=== PATIENT | female | born 1940 | race Caucasian/White ===

== ENCOUNTER 2016-11-07 09:55 | Inpatient (IN) | payer OTHER, BC ==
[~2016-11-07] VITALS: Ht 154.9 cm; Wt 85.7 kg
[~2016-11-07 09:55] MED LIST: ASPEC325 PO; ATR25 PO; BIOTPOW17 PO; CRAN200C PO; DESV50TA PO; FLV400 PO; FRRG PO; IBUP-1105 PO; LISI-461 PO; OMEP40CA PO; SENNTAB13 PO; doxycycline PO
[2016-11-07] MEDS ORDERED: EFFSR75 PO (10:23)
[2016-11-07] MEDS ORDERED: TRIATAB3 PO (10:23)
[2016-11-07] MEDS ORDERED: FLV400 PO (10:24)
[2016-11-07] MEDS ORDERED: OMEP40CA41 PO (10:24)
[2016-11-07] MEDS ORDERED: DOXY100C2 PO (10:24)
[2016-11-07] MEDS ORDERED: IBUP-1105 PO (10:24)
[2016-11-07] MEDS ORDERED: SODIUM CHLORIDE 0.9% 500ML 500 ML IV STA (11:09)
[2016-11-07] MEDS ORDERED: SODIUM CHLORIDE 0.9% 1000ML 1,000 ML IV STA (11:09)
[2016-11-07 11:25] LABS: BASO % 0.7 %; BASO ABS # 0.04 K/uL (0-0.2); COMPLETE YES; EOS % 2.5 %; HEMATOCRIT 39.4 % (37-47); IG% 0.2 %; LYMPH % 33.1 %; LYMPH ABS # 1.97 K/uL (1.2-3.4); MEAN CELL VOLUME 94.3 fL (80-100); MEAN CORPUSCULAR HEMOGLOBIN 32.5 pg (25-34); MEAN CORPUSCULAR HGB CONC 34.5 g/dl (32-36); MEAN PLATELET VOLUME 9.7 fL (7.4-10.4); MONO % 8.1 %; NEUT % 55.4 %; PLATELET COUNT 271 K/uL (130-400); RED BLOOD COUNT 4.18 M/uL (4.2-5.4); WHITE BLOOD COUNT 5.95 K/uL (4.8-10.8)
--- NOTE | 2016-11-07 11:26 | EMERGENCY ROOM VISIT NOTE ---
History Report prepared by Estefanía: Aleah Godoy Under the Supervision of: Dr. Loki Pérez M.D. First contact with patient: 11:03 Chief Complaint: DIZZY Stated Complaint: DIZZINESS, RIGHT SIDE NUMBNESS Nursing Triage Summary: pt to the ED with c/o RLE weakness that she woke up with today and feeling lightheaded and dizzy. yesterday at [facility] she had eye pain and felt lightheaded like "everything was moving on me" pt had right arm and leg drift and stated that the feeling on her right leg felt different from the left History of Present Illness The patient is a 76 year old female who presents to the Emergency Room with complaints of persistent right leg weakness that began this morning. She currently rates her discomfort as an 8/10 in severity. The patient states that yesterday while at [facility] she noticed bilateral eye pain. She states that when she went to [employer] she became lightheaded and dizzy. The patient states that she rested most of the day due to her symptoms. She states that today she woke up with a headache and right leg weakness and numbness. The patient denies any leg issue yesterday. She denies any speech slurring or trouble with eating breakfast this morning. The patient denies being on any blood thinners or aspirin. She denies any history of stroke or TIA. The patient notes that she takes ibuprofen daily. She states that she felt fine yesterday until she was at [facility]. The patient states that she still notices the dizziness today, that is worsened with movement. 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 He states that she still has trouble with her back to this day. Source of History: patient Onset: this morning Position: leg (right) Symptom Intensity: 8/10 Quality: other (weakness) Timing: other (persistent) Associated Symptoms: + headache, + numbness (right leg) Note: Associated Symptoms: dizziness, lightheaded, bilateral eye pain Review of Systems See HPI for pertinent positives & negatives. A total of 10 systems reviewed and were otherwise negative. Past Medical & Surgical Medical Problems: (1) Elevated cholesterol (2) GERD (gastroesophageal reflux disease) (3) Hypertension (4) Peptic ulcer disease Surgical Problems: (1) S/P cholecystectomy Family History Cancer Diabetes mellitus Social History Smoking Status: Never Smoker Marital Status: Housing Status: lives with significant other Occupation Status: retired Current/Historical Medications Scheduled Doxycycline Hyclate (Vibramycin), 100 MG PO UD Folic Acid (Folic Acid), 800 MG PO DAILY Ibuprofen (Ibuprofen), 800 MG PO UD Omeprazole (Prilosec), 40 MG PO DAILY Triamterene/Hctz (Triamterene/Hctz 37.5-25MG), 0.5 TAB PO DAILY Venlafaxine Hcl (Effexor Extended Rel), 75 MG PO DAILY Allergies Coded Allergies: Ampicillin (Verified Allergy, Intermediate, RASH, 11/07/16) Celecoxib (Verified Allergy, Intermediate, hives, 11/07/16) tolerates aspirin Oxycodone (Verified Allergy, Intermediate, n/v, hives, 11/07/16) Hydrocodone (Verified Adverse Reaction, Mild, hallucinations, 11/07/16) Physical Exam Vital Signs Date Time Temp Pulse Resp B/P Pulse Ox O2 Delivery O2 Flow Rate FiO2 11/07/16 12:18 59 201/77 97 11/07/16 12:10 58 204/74 99 11/07/16 11:30 59 20 191/89 98 11/07/16 10:27 63 11/07/16 10:08 36.9 68 18 180/84 95 Room Air Physical Exam GENERAL: Patient is in no acute distress. HEENT: No acute trauma, normocephalic atraumatic, mucous membranes moist, no nasal congestion, no scleral icterus. NECK: No stridor, no adenopathy, no meningismus, trachea is midline. LUNGS: Clear to auscultation bilaterally, no wheeze, no rhonchi, breath sounds equal. HEART: Without murmurs gallops or rubs, regular rate and rhythm. ABDOMEN: Soft, nontender, bowel sounds positive, no hernias, no peritonitis. EXTREMITIES: No cyanosis or edema, full range of motion of all the joints without pain or difficulty, no signs for acute trauma. NEUROLOGIC: Awake and alert, no speech slur, no facial droop, very subtle right arm drifting, no upper extremity cerebellar dysfunction, right leg cerebellar dysfunction and subtle drift. SKIN: No rash, no jaundice, no diaphoresis. Medical Decision & Procedures ER Provider Diagnostic Interpretation: CT results as stated below per my review and radiologist interpretation: HEAD CT NONCONTRAST CT DOSE: 720.95 mGycm HISTORY: Dizziness. Stroke TECHNIQUE: Multiaxial CT images of the head were performed without the use of intravenous contrast. Automated exposure control was utilized for this study. Comparison: None. Findings: The paranasal sinuses and mastoid air cells are clear. The calvarium and skull base are intact. There is no mass, hematoma, midline shift, acute infarct. White matter hypodensity is nonspecific but suggestive of microvascular ischemic change. The ventricles and sulci demonstrate mild age-related involutional changes. Old tiny lacunar infarcts within the bilateral basal ganglia. Impression: No acute intracranial abnormality. Atrophy and microvascular ischemic changes. Electronically signed by: Anjel Mccormack M.D. 11/07/2016 11:50 AM Dictated Date/Time: 11/07/2016 11:45 AM Laboratory Results 11/07/16 10:35 Red Blood Count 4.18, Mean Corpuscular Volume 94.3, Mean Corpuscular Hemoglobin 32.5, Mean Corpuscular Hemoglobin Concent 34.5, Mean Platelet Volume 9.7, Neutrophils (%) (Auto) 55.4, Lymphocytes (%) (Auto) 33.1, Monocytes (%) (Auto) 8.1, Eosinophils (%) (Auto) 2.5, Basophils (%) (Auto) 0.7, Neutrophils # (Auto) 3.30, Lymphocytes # (Auto) 1.97, Monocytes # (Auto) 0.48, Eosinophils # (Auto) 0.15, Basophils # (Auto) 0.04 11/07/16 10:35 Test 11/07/16 10:35 11/07/16 11:19 11/07/16 11:50 11/07/16 12:03 White Blood Count 5.95 K/uL (4.8-10.8) Red Blood Count 4.18 M/uL (4.2-5.4) Hemoglobin 13.6 g/dL (12.0-16.0) Hematocrit 39.4 % (37-47) Mean Corpuscular Volume 94.3 fL (80-100) Mean Corpuscular Hemoglobin 32.5 pg (25-34) Mean Corpuscular Hemoglobin Concent 34.5 g/dl (32-36) Platelet Count 271 K/uL (130-400) Mean Platelet Volume 9.7 fL (7.4-10.4) Neutrophils (%) (Auto) 55.4 % Lymphocytes (%) (Auto) 33.1 % Monocytes (%) (Auto) 8.1 % Eosinophils (%) (Auto) 2.5 % Basophils (%) (Auto) 0.7 % Neutrophils # (Auto) 3.30 K/uL (1.4-6.5) Lymphocytes # (Auto) 1.97 K/uL (1.2-3.4) Monocytes # (Auto) 0.48 K/uL (0.11-0.59) Eosinophils # (Auto) 0.15 K/uL (0-0.5) Basophils # (Auto) 0.04 K/uL (0-0.2) RDW Standard Deviation 41.1 fL (36.4-46.3) RDW Coefficient of Variation 12.0 % (11.5-14.5) Immature Granulocyte % (Auto) 0.2 % Immature Granulocyte # (Auto) 0.01 K/uL (0.00-0.02) Anion Gap 12.0 mmol/L (3-11) Est Creatinine Clear Calc Drug Dose 43.1 ml/min Estimated GFR () 56.1 Estimated GFR (Non- 48.4 BUN/Creatinine Ratio 21.0 (10-20) Estimated Average Glucose 120 mg/dl Hemoglobin A1c 5.8 % (4.5-5.6) Calcium Level 9.1 mg/dl (8.5-10.1) Chemistry Specimen Hemolysis Bedside Prothrombin Time INR 0.9 (0.9-1.1) Bedside Glucose 101 mg/dl (70-90) Prothrombin Time 10.0 SECONDS (9.0-12.0) Prothromb Time International Ratio 0.9 (0.9-1.1) Activated Partial Thromboplast Time 23.3 SECONDS (21.0-31.0) Partial Thromboplastin Ratio 0.9 Urine Opiates Screen NEG (NEG) Urine Methadone, Qualitative NEG (NEG) Urine Barbiturates NEG (NEG) Urine Phencyclidine (PCP) Level NEG (NEG) Ur Amphetamine/Methamphetamine NEG (NEG) MDMA (Ecstasy) Screen NEG (NEG) Urine Benzodiazepines Screen NEG (NEG) Urine Cocaine Metabolite NEG (NEG) Urine Marijuana (THC) NEG (NEG) Laboratory results reviewed by me. Medications Administered Medications (Trade) Dose Ordered Sig/Manuel Route Start Time Stop Time Status Last Admin Dose Admin Sodium Chloride 500 ml @ 999 mls/hr Q31M STAT IV 11/07/16 11:09 11/07/16 11:39 DC 11/07/16 11:35 999 MLS/HR Sodium Chloride (Nss 1000ml) 1,000 ml @ 125 mls/hr Q8H STAT IV 11/07/16 11:09 11/07/16 15:52 DC 11/07/16 12:23 125 MLS/HR Aspirin (Aspirin Chew) 324 mg NOW STAT PO 11/07/16 12:08 11/07/16 12:09 DC 11/07/16 12:22 324 MG ECG Indication: weakness, other (dizziness) Rate (beats per minute): 57 Rhythm: sinus bradycardia Findings: no acute ischemic change, no ectopy ED Course 1105: The patient was evaluated in room C5. A complete history and physical exam was performed. 1109: Ordered Sodium Chloride 1000 ml @ 125 mls/hr IV, Sodium Chloride 500 ml @ 999 mls/hr IV. 1208: Ordered Aspirin 324 mg PO. 1211: I discussed the patients case with Dr. Allen [facility]. She is going to evaluate the patient for further treatment. 1213: I reevaluated the patient and she is resting comfortably. I discussed the exam findings with her and I discussed the treatment plan. She verbalized complete understanding and agreement. She will be evaluated for further treatment. Medical Decision The patient is a 76 year old female who presents to the ED with complaints of right leg weakness. Differential diagnoses considered include anemia, electrolyte imbalance, infection, stroke, intracranial bleeding, dehydration, viral illness. There is no leukocytosis or concerning anemia. No significant electrolyte abnormality or kidney failure. There is no coagulopathy. EKG shows a sinus rhythm, no acute ischemia. Cardiac enzyme testing times one is not suggestive of acute cardiac injury. Brain CT shows no acute bleed or mass effect. Urine tox is negative. On my exam, the patient did have findings suggestive of a CVA , her right side seemed affected. The patient was clearly out of the window for TPA as her symptoms had started yesterday. She was given IV saline and oral aspirin. I talked with her and with rn field case manager. The on-call hospitalist was consulted. Further stroke workup is required. Consults Time Called: 1208 Consulting Physician: TETE Read Returned Call: 1211 I discussed the patients case with TETE Read. She is going to evaluate the patient for further treatment. Impression Primary Impression: CVA (cerebral vascular accident) Scribe Attestation The scribe's documentation has been prepared under my direction and personally reviewed by me in its entirety. I confirm that the note above accurately reflects all work, treatment, procedures, and medical decision making performed by me. Departure Information Dispostion Being Evaluated By Hospitalist Airam Mccallum M.D. (PCP)
[2016-11-07 11:35] LABS: BLOOD UREA NITROGEN 23 mg/dl (7-18); CALCIUM 9.1 mg/dl (8.5-10.1); CARBON DIOXIDE 22 mmol/L (21-32); CHLORIDE 110 mmol/L (98-107); GLUCOSE 97 mg/dl (70-99); POTASSIUM 4.4 mmol/L (3.5-5.1); SODIUM 144 mmol/L (136-145)
[2016-11-07 11:37] LABS: CKMB/CK RATIO 1.5 (0-3.0)
--- NOTE | 2016-11-07 11:52 | DIAGNOSTIC IMAGING REPORT ---
HEAD CT NONCONTRAST CT DOSE: 720.95 mGycm HISTORY: Dizziness. Stroke TECHNIQUE: Multiaxial CT images of the head were performed without the use of intravenous contrast. Automated exposure control was utilized for this study. Comparison: None. Findings: The paranasal sinuses and mastoid air cells are clear. The calvarium and skull base are intact. There is no mass, hematoma, midline shift, acute infarct. White matter hypodensity is nonspecific but suggestive of microvascular ischemic change. The ventricles and sulci demonstrate mild age-related involutional changes. Old tiny lacunar infarcts within the bilateral basal ganglia. Impression: No acute intracranial abnormality. Atrophy and microvascular ischemic changes. Electronically signed by: Anjel Mccormack M.D. 11/07/2016 11:50 AM Dictated Date/Time: 11/07/2016 11:45 AM
[2016-11-07] MEDS ORDERED: ASPIRIN 81 MG CHEW PO STA (12:08)
[2016-11-07 12:20] LABS: INR 0.9 (0.9-1.1); PARTIAL THROMBOPLASTIN RATIO 0.9
[2016-11-07 12:47] LABS: BENZODIAZEPINE, URINE NEG (NEG); COCAINE,URINE NEG (NEG); PHENCYCLIDINE, URINE NEG (NEG)
[2016-11-07] MEDS ORDERED: MAGNESIUM HYDROXIDE SUSP 30 ML UDC PO PRN (13:15)
[2016-11-07] MEDS ORDERED: ONDANSETRON INJ 2 MG/ML 2 ML VIAL IV PRN (13:15)
[2016-11-07] MEDS ORDERED: POLYETHYLENE (MIRALAX) 17 GM PACK PO PRN (13:15)
[2016-11-07] MEDS ORDERED: PHARMACIST DISCHARGE MED REC CONSULT PRN (13:15)
[2016-11-07] MEDS ORDERED: ALUMINUM/MAGNESIUM/SIMETH (MAALOX MAX) 30 ML UDC PO PRN (13:15)
[2016-11-07] MEDS ORDERED: SODIUM CHLORIDE 0.9% 1000ML 1,000 ML IV SCH (13:30)
--- NOTE | 2016-11-07 13:54 | History and Physical ---
History & Physical Date & Time of Service: Nov 07, 2016 at 13:28 Chief Complaint: Dizziness, Right Side Numbness Primary Care Physician: Airam Sanchez M.D. History of Present Illness Source: patient, spouse Ms. 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 She states she was her normal self when she went to [employer] yesterday. When she went to stand up she noted bilateral eye pain stating they felt dry and she had a headache that was located behind the eyes that was throbbing in nature. She had associated dizziness that she describes as the room spinning and objects appeared that they were moving towards her and away and tunnel vision. She then states she feels that her symptoms mildly improved with rest throughout Monday. When she woke up today she noted that the headache was more generalized and aching in quality and associated mild photophobia. She also noted RLE weakness to the point that she needed to use her arms to help move the RLE and says it feels heavy. She denies any history of similar symptoms, TIA/CVA, or Migraines. She denies slurred speech or upper extremity weakness. She denies fever/chills, CP, SOB, N/V, abdominal pain, dysuria, constipation/diarrhea. In the ED, Head CT unremarkable for acute intracranial findings but evidence of old lacunar infarcts. Hypertensive with systolic readings in 200s. She was treated with ASA 324 mg x 1. She will be admitted to telemetry for possible CVA. Past Medical/Surgical History Medical Problems: (1) Elevated cholesterol Status: Chronic (2) GERD (gastroesophageal reflux disease) Status: Chronic (3) Hypertension Status: Chronic (4) Peptic ulcer disease Status: Chronic Surgical Problems: (1) S/P cholecystectomy Status: Resolved Family History Cancer Diabetes mellitus Social History Smoking Status: Never Smoker Smokeless Tobacco Use: No Alcohol Use: none Drug Use: none Marital Status: Occupational Status: retired Multi-Drug Resistant Organisms History of MDRO: No Allergies Coded Allergies: Ampicillin (Verified Allergy, Intermediate, RASH, 11/07/16) Celecoxib (Verified Allergy, Intermediate, hives, 11/07/16) tolerates aspirin Oxycodone (Verified Allergy, Intermediate, n/v, hives, 11/07/16) Hydrocodone (Verified Adverse Reaction, Mild, hallucinations, 11/07/16) Home Medications Scheduled Doxycycline Hyclate (Vibramycin), 100 MG PO UD Folic Acid (Folic Acid), 800 MG PO DAILY Ibuprofen (Ibuprofen), 800 MG PO UD Omeprazole (Prilosec), 40 MG PO DAILY Triamterene/Hctz (Triamterene/Hctz 37.5-25MG), 0.5 TAB PO DAILY Venlafaxine Hcl (Effexor Extended Rel), 75 MG PO DAILY Review of Systems Constitutional: No chills, No fever Eyes: + eye pain (bilateral; dry sensation), + problem reported (photophobia) ENT: No nasal symptoms, No sore throat, No trouble swallowing Respiratory: No cough, No shortness of breath Cardiovascular: No chest pain Abdomen: No diarrhea, No nausea, No pain, No vomiting Musculoskeletal: No calf pain, No swelling Genitourinary - Female: No dysuria Neurologic: + numbness/tingling (RLE), + vertigo, + weakness (RLE) Hematologic / Lymphatic: No abnormal bleeding/bruising Integumentary: No rash Physical Exam Vital Signs Date Time Temp Pulse Resp B/P Pulse Ox O2 Delivery O2 Flow Rate FiO2 11/07/16 12:18 59 201/77 97 11/07/16 12:10 58 204/74 99 11/07/16 11:30 59 20 191/89 98 11/07/16 10:27 63 11/07/16 10:08 36.9 68 18 180/84 95 Room Air General Appearance: WD/WN, no apparent distress Head: normocephalic, atraumatic Eyes: PERRL, EOMI, sclerae normal ENT: hearing grossly normal Neck: supple, no JVD, trachea midline Respiratory/Chest: lungs clear, normal breath sounds, no respiratory distress, no accessory muscle use Cardiovascular: regular rate, rhythm, no gallop, no murmur Abdomen/GI: normal bowel sounds, non tender, soft Back: no CVA tenderness Extremities/Musculoskelatal: no calf tenderness, no pedal edema Neurologic/Psych: alert, oriented x 3, + pertinent finding (facial movements symmetrical at rest and with movement; mild RUE drift; 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 with production posting clerk strength, extension, and flexion compared to LUE; RLE weakness to plantarflexion , dorsiflexion, and with flexion at hip compared to LLE) Skin: normal color, warm/dry Diagnostics Laboratory Results Results Past 24 Hours Test 11/07/16 10:35 11/07/16 11:19 11/07/16 11:50 11/07/16 12:03 Range/Units White Blood Count 5.95 4.8-10.8 K/uL Red Blood Count 4.18 4.2-5.4 M/uL Hemoglobin 13.6 12.0-16.0 g/dL Hematocrit 39.4 37-47 % Mean Corpuscular Volume 94.3 80-100 fL Mean Corpuscular Hemoglobin 32.5 25-34 pg Mean Corpuscular Hemoglobin Concent 34.5 32-36 g/dl Platelet Count 271 130-400 K/uL Mean Platelet Volume 9.7 7.4-10.4 fL Neutrophils (%) (Auto) 55.4 % Lymphocytes (%) (Auto) 33.1 % Monocytes (%) (Auto) 8.1 % Eosinophils (%) (Auto) 2.5 % Basophils (%) (Auto) 0.7 % Neutrophils # (Auto) 3.30 1.4-6.5 K/uL Lymphocytes # (Auto) 1.97 1.2-3.4 K/uL Monocytes # (Auto) 0.48 0.11-0.59 K/uL Eosinophils # (Auto) 0.15 0-0.5 K/uL Basophils # (Auto) 0.04 0-0.2 K/uL RDW Standard Deviation 41.1 36.4-46.3 fL RDW Coefficient of Variation 12.0 11.5-14.5 % Immature Granulocyte % (Auto) 0.2 % Immature Granulocyte # (Auto) 0.01 0.00-0.02 K/uL Sodium Level 144 136-145 mmol/L Potassium Level 4.4 3.5-5.1 mmol/L Chloride Level 110 98-107 mmol/L Carbon Dioxide Level 22 21-32 mmol/L Anion Gap 12.0 3-11 mmol/L Blood Urea Nitrogen 23 7-18 mg/dl Creatinine 1.10 0.60-1.20 mg/dl Est Creatinine Clear Calc Drug Dose 43.1 ml/min Estimated GFR () 56.1 Estimated GFR (Non- 48.4 BUN/Creatinine Ratio 21.0 10-20 Random Glucose 97 70-99 mg/dl Calcium Level 9.1 8.5-10.1 mg/dl Total Creatine Kinase 167 26-192 U/L Creatine Kinase MB 2.5 0.5-3.6 ng/ml Creatine Kinase MB Ratio 1.5 0-3.0 Troponin I < 0.015 0-0.045 ng/ml Chemistry Specimen Hemolysis Bedside Prothrombin Time INR 0.9 0.9-1.1 Bedside Glucose 101 70-90 mg/dl Prothrombin Time 10.0 9.0-12.0 SECONDS Prothromb Time International Ratio 0.9 0.9-1.1 Activated Partial Thromboplast Time 23.3 21.0-31.0 SECONDS Partial Thromboplastin Ratio 0.9 Urine Opiates Screen NEG NEG Urine Methadone, Qualitative NEG NEG Urine Barbiturates NEG NEG Urine Phencyclidine (PCP) Level NEG NEG Ur Amphetamine/Methamphetamine NEG NEG MDMA (Ecstasy) Screen NEG NEG Urine Benzodiazepines Screen NEG NEG Urine Cocaine Metabolite NEG NEG Urine Marijuana (THC) NEG NEG Diagnostic Radiology HEAD CT NONCONTRAST CT DOSE: 720.95 mGycm HISTORY: Dizziness. Stroke TECHNIQUE: Multiaxial CT images of the head were performed without the use of intravenous contrast. Automated exposure control was utilized for this study. Comparison: None. Findings: The paranasal sinuses and mastoid air cells are clear. The calvarium and skull base are intact. There is no mass, hematoma, midline shift, acute infarct. White matter hypodensity is nonspecific but suggestive of microvascular ischemic change. The ventricles and sulci demonstrate mild age-related involutional changes. Old tiny lacunar infarcts within the bilateral basal ganglia. Impression: No acute intracranial abnormality. Atrophy and microvascular ischemic changes. Electronically signed by: Anjel Mccormack M.D. 11/07/2016 11:50 AM Impression Assessment and Plan Ms. 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 In the ED, Head CT unremarkable for acute intracranial findings but evidence of old lacunar infarcts. Hypertensive with systolic readings in 200s. She was treated with ASA 324 mg x 1. She will be admitted to telemetry for possible CVA. Possible CVA with RUE/RLE Weakness: - Assessment - patient initially denies noticeable 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 however this is present on exam with RLE weakness noted - Imaging and Studies -- Head CT - image and report reviewed - no acute intracranial findings - Neuro checks and NIH Stroke Scale - Lipid profile and HbA1c - Serial cardiac enzymes - MRI Combo - Carotid Dopplers - NSS 100 mL/hr - ASA 81 mg daily HTN: - Will allow permissive HTN at this time until MRI confirmation - Hydralazine 10 mg PRN for SBP > 210 or DBP > 110 GERD: - Protonix 40 mg daily as Prilosec interchange DVT Prophylaxis: - ELIE/SCDs - Will withhold chemical prophylaxis in setting of possible CVA and concern for hemorrhagic conversion Code Status: - FULL RESUSCITATION - NO MECHANICAL VENTILATION Disposition: - PT/OT Evaluation PA Physician Supervision Note: I interviewed and examined the patient. Discussed with Amber Mcnally PAC and agree with findings and plan as documented in the note. Any exceptions or clarifications are listed here: None Pt presented a day after vertigo symptoms started with right sided weakness, leg > Arm, confirmed left bernadette stroke vitals show some hypertension, althought diastolic numbers in 70's exam demonstrates some altered sensation and loss of strength in right leg and arm but is about 3.5/5 in leg and 4/5 in arm and hand Will have stroke order set initiated with out tPa looseley control blood pressure start asa statin carotid doppler pending, and PT/OT, bedside speech seems intact Documented By: Gustavo Henderson Level of Care Telemetry Advanced Directives Existing Advance Directive: Yes Resuscitation Status [facility] V[facility] Prophylaxis VTE Risk Assessment Done? Y/N: Yes Risk Level: Moderate Given or contraindicated: T.E.D. Stockings, SCD's
[2016-11-07 14:21] LABS: ESTIMATED AVERAGE GLUCOSE 120 mg/dl; HA1C FLAG Normal (Normal)
[2016-11-07] MEDS ORDERED: HydrALAZINE HCL 20 MG/ML VIAL IV. PRN (14:30)
--- NOTE | 2016-11-07 15:09 | DIAGNOSTIC IMAGING REPORT ---
MRI OF THE BRAIN WITHOUT AND WITH IV CONTRAST CLINICAL HISTORY: Stroke. Right-sided numbness. Dizziness. COMPARISON STUDY: Head CT performed earlier today. TECHNIQUE: Utilizing a 1.5 Meghan magnet and dedicated coil, multiplanar, multiecho imaging of the brain was performed pre and postcontrast administration. IV administration of 8 mL of Gadavist contrast was uneventful. FINDINGS: There is a 1.2 x 0.4 cm area of restricted diffusion within the left aspect of the bernadette. This suggests an acute infarct. There is no mass effect. There is no hemorrhage. No intracranial mass is present. Ventricular system is unremarkable. The basilar cisterns are patent. There are no extra axial collections. Flow-voids for the major intracranial vessels are present. Moderate white matter T2 hyperintense foci suggest small vessel disease. A few old lacunar infarcts are noted within the bilateral basal ganglia. Calvarial signal is maintained. IMPRESSION: Small acute left pontine infarct. No mass effect or hemorrhage. Electronically signed by: Jorge Garcia M.D. 11/07/2016 3:07 PM Dictated Date/Time: 11/07/2016 3:03 PM
[2016-11-07] MEDS ORDERED: HydrALAZINE HCL 20 MG/ML VIAL IV PRN (15:30)
[2016-11-07] MEDS ORDERED: LORAZEPAM 0.5 MG TAB PO PRN (15:45)
[2016-11-07] MEDS ORDERED: LORAZEPAM 2 MG/ML 1 ML VIAL IV PRN (15:45)
[2016-11-07] MEDS ORDERED: LORAZEPAM INJ 0.5 MG in SYRINGE 0.75 ML IV PRN (16:00)
--- NOTE | 2016-11-07 16:01 | DIAGNOSTIC IMAGING REPORT ---
ULTRASOUND OF THE CAROTID ARTERIES CLINICAL HISTORY: Stroke COMPARISON STUDY: None. TECHNIQUE: Real-time, grayscale, and color Doppler sonography of the carotid arteries was performed. Imaging reviewed in the transverse and longitudinal planes. NASCET criteria was utilized for stenosis calcification. FINDINGS: There is minimal atherosclerotic plaque present . The peak systolic velocity within the right internal carotid artery is 73 cm/sec. The systolic velocity ratio of right internal to common carotid artery is 1.1. The peak systolic velocity within the left internal carotid artery is 68 cm/sec. The systolic velocity ratio left internal to common carotid artery is 1.2. Antegrade flow is seen in the vertebral arteries. The external carotid arteries are patent. Blood pressure in the right arm measured 206 mm/Hg. Blood pressure in the left arm measured 196 mm/Hg. IMPRESSION: 1. No evidence of hemodynamically significant carotid stenosis 2. Systemic hypertension Electronically signed by: Bo Sherwood M.D. 11/07/2016 3:59 PM Dictated Date/Time: 11/07/2016 3:24 PM
[2016-11-07 16:30] VITALS: BP 199/99
[2016-11-07 17:20] LABS: CKMB/CK RATIO 1.7 (0-3.0)
[2016-11-07 17:32] VITALS: BP 211/74; PULSE 63; TEMP 36.6; O2SAT 96; Ht 154.9 cm; Wt 85.7 kg
[2016-11-07 20:00] VITALS: BP 167/74; PULSE 73; TEMP 36.6; O2SAT 95
[2016-11-07] MEDS: ACETAMINOPHEN 325 MG TAB PO PRN (22:42)
[2016-11-07 23:23] VITALS: BP 159/80; PULSE 64; TEMP 36.7; O2SAT 95
[2016-11-08] VITALS (9 sets, daily range): BP systolic 125–173; BP diastolic 69–101; PULSE 60–78; TEMP 36.6–37.2; O2SAT 94–98
[2016-11-08] MEDS: FoLIC ACID TAB 400 MCG TAB PO SCH (08:11)
[2016-11-08] MEDS: ASPIRIN 81 MG ECTAB PO SCH (08:11)
[2016-11-08] MEDS: PANTOprazole SOD 40 MG TAB PO SCH (08:11)
[2016-11-08] MEDS: VENLAFAXINE HCL XR 75 MG CAPXR PO SCH (08:11)
[2016-11-08] MEDS: ATORVASTATIN 40 MG TAB PO SCH (08:12)
[2016-11-08] MEDS ORDERED: ATORVASTATIN 20 MG TAB PO SCH (09:00)
[2016-11-08] MEDS ORDERED: SCOPOLAMINE 1.5 MG TDSY TD SCH (10:15)
[2016-11-08] MEDS ORDERED: LORAZEPAM 2 MG/ML 1 ML VIAL IV PRN (10:15)
[2016-11-08] MEDS ORDERED: LORAZEPAM 0.5 MG TAB PO PRN (10:15)
[2016-11-08] MEDS: ACETAMINOPHEN 325 MG TAB PO PRN (15:37)
[2016-11-08] MEDS: CHECK SCOPOLAMINE PATCH PLACEMENT SCH ×2 (15:37→23:32)
--- NOTE | 2016-11-08 16:32 | Progress Note ---
Subjective Date of Service: Nov 08, 2016. Subjective pt had a rough night and did not get much sleep, she has some dizziness but seems to be positional, does not feel stable for discharge Problem List Medical Problems: (1) CVA (cerebral vascular accident) Status: Acute Review of Systems Constitutional: No chills, No fever Respiratory: No cough, No shortness of breath Cardiac: No chest pain, No edema Abdomen: No diarrhea, No nausea, No pain, No vomiting Female : No dysuria, No urinary frequency Neurologic: + balance problems, + weakness Psychiatric: No anxiety, No depression symptoms Objective Vital Signs Date Time Temp Pulse Resp B/P Pulse Ox O2 Delivery O2 Flow Rate FiO2 11/08/16 07:40 36.9 63 18 173/83 96 Room Air 11/08/16 04:00 37.0 78 18 144/88 98 Room Air 11/08/16 04:00 Room Air 11/07/16 23:59 Room Air 11/07/16 23:23 36.7 64 19 159/80 95 Room Air 11/07/16 20:00 36.6 73 18 167/74 95 Room Air 11/07/16 20:00 Room Air 11/07/16 17:32 36.6 63 16 211/74 96 Room Air 11/07/16 16:30 199/99 11/07/16 13:53 59 187/94 11/07/16 13:40 61 11/07/16 12:18 59 201/77 97 11/07/16 12:10 58 204/74 99 11/07/16 11:30 59 20 191/89 98 11/07/16 10:27 63 11/07/16 10:08 36.9 68 18 180/84 95 Room Air Physical Exam General Appearance: WD/WN, + mild distress Eyes: + pertinent finding (no nystagmus) Neck: supple, no JVD Respiratory/Chest: chest non-tender, lungs clear, normal breath sounds Cardiovascular: regular rate, rhythm, no murmur Abdomen: normal bowel sounds, non tender, soft Extremities: no pedal edema, no calf tenderness Neurologic/Psychiatric: alert, oriented x 3, + pertinent finding (still slight muscle weakness on right ) Laboratory Results Last 24 Hours Test 11/07/16 10:35 11/07/16 11:19 11/07/16 11:50 11/07/16 12:03 White Blood Count 5.95 K/uL Red Blood Count 4.18 M/uL Hemoglobin 13.6 g/dL Hematocrit 39.4 % Mean Corpuscular Volume 94.3 fL Mean Corpuscular Hemoglobin 32.5 pg Mean Corpuscular Hemoglobin Concent 34.5 g/dl Platelet Count 271 K/uL Mean Platelet Volume 9.7 fL Neutrophils (%) (Auto) 55.4 % Lymphocytes (%) (Auto) 33.1 % Monocytes (%) (Auto) 8.1 % Eosinophils (%) (Auto) 2.5 % Basophils (%) (Auto) 0.7 % Neutrophils # (Auto) 3.30 K/uL Lymphocytes # (Auto) 1.97 K/uL Monocytes # (Auto) 0.48 K/uL Eosinophils # (Auto) 0.15 K/uL Basophils # (Auto) 0.04 K/uL RDW Standard Deviation 41.1 fL RDW Coefficient of Variation 12.0 % Immature Granulocyte % (Auto) 0.2 % Immature Granulocyte # (Auto) 0.01 K/uL Sodium Level 144 mmol/L Potassium Level 4.4 mmol/L Chloride Level 110 mmol/L Carbon Dioxide Level 22 mmol/L Anion Gap 12.0 mmol/L Blood Urea Nitrogen 23 mg/dl Creatinine 1.10 mg/dl Est Creatinine Clear Calc Drug Dose 43.1 ml/min Estimated GFR () 56.1 Estimated GFR (Non- 48.4 BUN/Creatinine Ratio 21.0 Random Glucose 97 mg/dl Estimated Average Glucose 120 mg/dl Hemoglobin A1c 5.8 % Calcium Level 9.1 mg/dl Total Creatine Kinase 167 U/L Creatine Kinase MB 2.5 ng/ml Creatine Kinase MB Ratio 1.5 Troponin I < 0.015 ng/ml Chemistry Specimen Hemolysis Bedside Prothrombin Time INR 0.9 Bedside Glucose 101 mg/dl Prothrombin Time 10.0 SECONDS Prothromb Time International Ratio 0.9 Activated Partial Thromboplast Time 23.3 SECONDS Partial Thromboplastin Ratio 0.9 Urine Opiates Screen NEG Urine Methadone, Qualitative NEG Urine Barbiturates NEG Urine Phencyclidine (PCP) Level NEG Ur Amphetamine/Methamphetamine NEG MDMA (Ecstasy) Screen NEG Urine Benzodiazepines Screen NEG Urine Cocaine Metabolite NEG Urine Marijuana (THC) NEG Test 11/07/16 16:30 11/08/16 07:25 Total Creatine Kinase 143 U/L Creatine Kinase MB 2.4 ng/ml Creatine Kinase MB Ratio 1.7 Troponin I < 0.015 ng/ml Assessment and Plan Ms. 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
--- NOTE | 2016-11-08 18:06 | ECHOCARDIOGRAM REPORT ---
*NOTICE TO RECEIVING CONSTITUTION PARTY AGENCY This information is strictly Confidential and protected under [place] law. [place] law prohibits you from making any further disclosure of this information unless further disclosure is expressly permitted by the written consent of the person to whom it pertains or is authorized by law. A general authorization for the release of medical or other information is not sufficient for this purpose. Hospital accepts no responsibility if the information is made available to any other person, INCLUDING THE PATIENT. Interpretation Summary * Name: Se VIEYRA Study Date: 11/08/2016 12:59 PM BP: 141/69 mmHg * Patient Location: C.2T\S\S242\S\2 HR: 70 * : 1940 (M/d/yyyy) Gender: Female Height: 61 in * Age: 76 yrs Ethnicity: CA Weight: 193 lb * Ordering Physician: Amber Mcnally * Referring Physician: Self, Referred * Performed By: Aleah Lagos RDCS * * Reason For Study: CEREBRAL ISCHEMIA/ EMBOLUS * BSA: 1.9 m2 * History: CEREBRAL ISCHEMIA/EMBOLUS * Normal biventricular systolic function. * Mild concentric left ventricular hypertrophy. * Left ventricular diastolic dysfunction. * Trace tricuspid regurgitation. * No cardiac source of emboli noted. Procedure Details * A saline contrast injection was performed to assess for cardiac shunting. * The injection was performed through an intravenous line in the right arm. * The attending nurse who injected the saline contrast was JODY MAYS RN. * A total of 20 cc of agitated saline was given. Left Ventricle * The left ventricle is normal in size. * There is no thrombus. * There is mild concentric left ventricular hypertrophy. * Ejection Fraction = 65-70%. * A full diastolic examination was done with clinical findings of Class I diastolic dysfunction. * The left ventricular wall motion is normal. Right Ventricle * The right ventricle is normal in size and function. Atria * The left atrial size is normal. * Right atrial size is normal. * Injection of contrast documented no interatrial shunt. Mitral Valve * The mitral valve is normal. * There is no mitral regurgitation noted. Tricuspid Valve * The tricuspid valve is not well visualized. * There is trace tricuspid regurgitation. Aortic Valve * The aortic valve is trileaflet. * The aortic valve opens well. * No aortic regurgitation is present. Pulmonic Valve * The pulmonic valve is not well visualized. * There is no pulmonic valvular regurgitation. Great Vessels * The aortic root is normal size. Pericardium/Pleural * There is no pericardial effusion. MMode 2D Measurements and Calculations IVSd 1.3 cm IVSs 1.8 cm LVIDd 4.1 cm LVIDs 2.9 cm LVPWd 1.3 cm LVPWs 1.4 cm IVS/LVPW 1.0 FS 29.1 % EDV(Teich) 72.4 ml ESV(Teich) 31.5 ml EF(Teich) 56.4 % EDV(cubed) 66.8 ml ESV(cubed) 23.8 ml EF(cubed) 64.4 % % IVS thick 36.6 % % LVPW thick 13.5 % LV mass(C)d 189.0 grams LV mass(C)dI 101.5 grams/m\S\2 LV mass(C)s 170.9 grams LV mass(C)sI 91.9 grams/m\S\2 SV(Teich) 40.8 ml SI(Teich) 22.0 ml/m\S\2 SV(cubed) 43.0 ml SI(cubed) 23.1 ml/m\S\2 LA dimension 3.1 cm LVAd ap4 26.0 cm\S\2 LVLd ap4 7.8 cm EDV(MOD-sp4) 70.3 ml EDV(sp4-el) 73.8 ml LVAs ap4 13.7 cm\S\2 LVLs ap4 6.5 cm ESV(MOD-sp4) 25.8 ml ESV(sp4-el) 24.6 ml EF(MOD-sp4) 63.3 % EF(sp4-el) 66.7 % LVAd ap2 27.1 cm\S\2 LVLd ap2 8.3 cm EDV(MOD-sp2) 73.1 ml EDV(sp2-el) 75.0 ml LVAs ap2 15.6 cm\S\2 LVLs ap2 7.4 cm ESV(MOD-sp2) 30.1 ml ESV(sp2-el) 28.1 ml EF(MOD-sp2) 58.8 % EF(sp2-el) 62.5 % LVLd %diff 7.0 % EDV(MOD-bp) 72.9 ml LVLs %diff 11.7 % ESV(MOD-bp) 29.3 ml EF(MOD-bp) 59.8 % SV(MOD-sp4) 44.5 ml SI(MOD-sp4) 23.9 ml/m\S\2 SV(MOD-sp2) 43.0 ml SI(MOD-sp2) 23.1 ml/m\S\2 SV(MOD-bp) 43.6 ml SI(MOD-bp) 23.4 ml/m\S\2 SV(sp4-el) 49.2 ml SI(sp4-el) 26.4 ml/m\S\2 SV(sp2-el) 46.8 ml SI(sp2-el) 25.2 ml/m\S\2 Doppler Measurements and Calculations MV E max victor hugo 69.6 cm/sec MV A max victor hugo 84.4 cm/sec MV E/A 0.82 MV dec time 0.23 sec Ao V2 max 168.9 cm/sec Ao max PG 11.4 mmHg Ao max PG (full) 4.4 mmHg LV V1 max PG 7.0 mmHg LV V1 max 132.7 cm/sec
[2016-11-09 04:00] VITALS: BP 154/72; PULSE 68; TEMP 37; O2SAT 96
[2016-11-09 07:41] VITALS: BP 153/65; PULSE 65; TEMP 37; O2SAT 96
[2016-11-09 08:00] VITALS: O2SAT 96
[2016-11-09] MEDS: CHECK SCOPOLAMINE PATCH PLACEMENT SCH (08:00)
[2016-11-09] MEDS ORDERED: SCPTP TD (08:56)
[2016-11-09] MEDS ORDERED: ASPEC81 PO (08:56)
[2016-11-09] MEDS ORDERED: LPT40 PO (08:56)
--- NOTE | 2016-11-09 08:57 | Discharge Instructions ---
Discharge Instructions Admission Reason for Admission: Cva (Cerebral Vascular Accident) Discharge Discharge Diagnosis / Problem: left pontine stroke Discharge Goals Goal(s): Diagnostic testing, Therapeutic intervention Activity Recommendations Activity Limitations: as noted below Lifting Limitations: gradually increase as tolerated (as per home physical therapy) . Instructions / Follow-Up Instructions / Follow-Up Risk Factors for Stroke: You can reduce your chances of stroke by working with your medical provider to adopt a healthy lifestyle. Some specific ways to lower your chance of stroke are: * If you are a smoker, now is the time to stop smoking cigarettes * If you are diabetic, improve the control of your blood sugars * Avoid excessive amounts of alcohol * Control high blood pressure * Lose weight if you are overweight * Be sure to lead an active lifestyle * Eat a healthy diet low in salt, cholesterol and fat You should know about other risk factors for stroke that you are unable to control. These include: * Age 55 years or older * Male gender * Certain racial groups: , or / * Family History of Stroke, Mini stroke or Heart Attack * Sickle Cell Disease Follow Up: It is important for you to keep your follow up appointments with your medical provider. Current Hospital Diet Patient's current hospital diet: AHA Diet (Heart Healthy) Discharge Diet Recommended Diet: Low Sodium Diet (2gm Na) Pending Studies Studies pending at discharge: no Laboratory Results Hemoglobin A1c Test 11/07/16 10:35 Range/Units Estimated Average Glucose 120 mg/dl Hemoglobin A1c 5.8 H 4.5-5.6 % Lipid Panel Test 11/08/16 07:25 Range/Units Triglycerides Level 144 0-150 mg/dl Cholesterol Level 190 0-200 mg/dl HDL Cholesterol 47 mg/dl Cholesterol/HDL Ratio 4.0 LDL Cholesterol, Calculated 114 mg/dl Medical Emergencies . Who to Call and When: Medical Emergencies: Call 911 immediately if you experience any of the following warning signs and symptoms of Stroke: * Sudden numbness or weakness of the face, arm or leg, especially on one side of the body * Sudden confusion, trouble speaking or understanding * Sudden trouble seeing in one or both eyes * Sudden trouble walking, dizziness, loss of balance or coordination * Sudden severe headache with no cause Do not delay calling 911 if you experience any warning signs or symptoms of a stroke. Delay in seeking medical attention may affect what treatments can be given to you. . Non-Emergent Contact Non-Emergency issues call your: Primary Care Provider, Neurologist . . "Provider Documentation" section prepared by Gustavo Henderson. Stroke Core Measures Reason no t-PA for Stroke: Treatment not indicated Reason no antithrom by day 2: Treatment provided - N/A Reason no antithrom at D/C: Treatment provided - N/A Reason no statin at D/C: Treatment provided - N/A Reason no anticoag w/a fib: Treatment not indicated VTE Core Measure Inpt VTE Proph given/why not?: Mars Ann, SCD's
[2016-11-09 08:58] VITALS: O2SAT 96
[2016-11-09] MEDS: ASPIRIN 81 MG ECTAB PO SCH (09:33)
[2016-11-09] MEDS: VENLAFAXINE HCL XR 75 MG CAPXR PO SCH (09:33)
[2016-11-09] MEDS: FoLIC ACID TAB 400 MCG TAB PO SCH (09:34)
[2016-11-09] MEDS: PANTOprazole SOD 40 MG TAB PO SCH (09:34)
[2016-11-09] MEDS: ATORVASTATIN 40 MG TAB PO SCH (09:34)
[2016-11-09 09:52] VITALS: BP 153/65; PULSE 65; TEMP 37; O2SAT 96
--- NOTE | 2016-11-09 12:12 | Pharmacy Progress Note ---
Pharmacist Stroke Counseling Date of Service Nov 09, 2016. Scope Pharmacy has been consulted to provide medication discharge counseling for this patient admitted with ischemic stroke/hemorrhagic stroke/ transient ischemic attack as per the Pharmacist Discharge Counseling for Stroke Patients Protocol. Medications on Discharge Medications Dose Route/Sig Max Daily Dose Days Date Category Dose Instructions Transderm-Scop (Scopolamine) 1.5 Mg Tdsy 1.5 Mg TD Q72H 11/09/16 Rx Aspirin EC Low Dose (Aspirin) 81 Mg Ectab 81 Mg PO QAM 365 11/09/16 Rx Atorvastatin Calcium (Atorvastatin) 40 Mg Tab 40 Mg PO QAM 11/09/16 Rx Vibramycin (Doxycycline Hyclate) 100 Mg Cap 100 Mg PO UD 11/07/16 Reported takes for rosacea Prilosec (Omeprazole) 40 Mg Cap 40 Mg PO DAILY 11/07/16 Reported Folic Acid 400 Mcg Tab 800 Mg PO DAILY 11/07/16 Reported Ibuprofen 200 Mg Tab 800 Mg PO UD 11/07/16 Reported Effexor Extended Rel (Venlafaxine Hcl) 75 Mg Capcr 75 Mg PO DAILY 11/07/16 Reported Triamterene/Hctz 37.5-25MG (Triamterene/HCTZ) 1 Tab Tab 0.5 Tab PO DAILY 11/07/16 Reported Action The above medications, specifically ones for stroke treatment/prophylaxis, have been reviewed in detail with the patient and/or patient correspondence representative(s) prior to discharge. This includes indication, common adverse reactions, drug interactions, and medication administration. Medication counseling has been employed using the teach-back method to ensure understanding. Outcome The patient and/or patient correspondence representative(s) have demonstrated understanding of the medications. Please note, they are aware that the pharmacist will call them within 72 hours post-discharge to confirm that the appropriate medications are being taken and answer any further medication related questions the patient might have at that time. Contact information Individual to be contacted: [place] Phone number: [phone] Best time to call: anytime Additional comments: Patient has a history of GERD and peptic ulcer disease. She takes prilosec at home. I stressed the importance of using an enteric coated aspirin product and taking the product with food to limit GI side effects. Patient stated that she tolerated Lipitor in the past. Thank you for allowing pharmacy to be involved in the care of this patient. Please call [phone] or [phone] with any additional questions
--- NOTE | 2016-11-09 13:15 | Discharge Summary ---
Discharge Summary Admission Date: Nov 07, 2016 at 13:22 Discharge Date: Nov 09, 2016 Discharge Disposition: Home Principal Diagnosis: Left Pontine CVA Problems/Secondary Diagnoses: 1. Sacral Chordoma 2. GERD 3. HTN 4. Depression Consultations: 1. PT/OT Medication Reconciliation New Medications: Aspirin (Aspirin EC Low Dose) 81 Mg Ectab 81 MG PO QAM for 365 Days Atorvastatin (Atorvastatin Calcium) 40 Mg Tab 40 MG PO QAM, #90 TAB 6 Refills Scopolamine (Transderm-Scop) 1.5 Mg Tdsy 1.5 MG TD Q72H, #4 PATCH Continued Medications: Doxycycline Hyclate (Vibramycin) 100 Mg Cap 100 MG PO UD takes for rosacea Folic Acid (Folic Acid) 400 Mcg Tab 800 MG PO DAILY Ibuprofen (Ibuprofen) 200 Mg Tab 800 MG PO UD Omeprazole (Prilosec) 40 Mg Cap 40 MG PO DAILY, #90 Triamterene/Hctz (Triamterene/Hctz 37.5-25MG) 1 Tab Tab 0.5 TAB PO DAILY, TAB Venlafaxine Hcl (Effexor Extended Rel) 75 Mg Capcr 75 MG PO DAILY, #30 Discharge Exam Review of Systems: Constitutional: + problem reported (mild diffuse headache (improving)), No chills, No fever Eyes: No worsening of vision Respiratory: No shortness of breath Cardiovascular: No chest pain Abdomen: No nausea, No pain, No vomiting Neurologic: + weakness (RLE improving), No balance problems, No numbness/ tingling, No vertigo Integumentary: No rash Physical Exam: General Appearance: WD/WN, no apparent distress Eyes: PERRL, EOMI, sclerae normal ENT: hearing grossly normal Respiratory/Chest: lungs clear, normal breath sounds, no respiratory distress, no accessory muscle use Cardiovascular: regular rate, rhythm, no gallop, no murmur Abdomen / GI: normal bowel sounds, non tender, soft Neurologic/Psychiatric: alert, oriented x 3, + pertinent finding (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 She states she was her normal self when she went to gnosticism yesterday. When she went to stand up she noted bilateral eye pain stating they felt dry and she had a headache that was located behind the eyes that was throbbing in nature. She had associated dizziness that she describes as the room spinning and objects appeared that they were moving towards her and away and tunnel vision. She then states she feels that her symptoms mildly improved with rest throughout Monday. When she woke up today she noted that the headache was more generalized and aching in quality and associated mild photophobia. She also noted RLE weakness to the point that she needed to use her arms to help move the RLE and says it feels heavy. She denies any history of similar symptoms, TIA/CVA, or Migraines. She denies slurred speech or upper extremity weakness. She denies fever/chills, CP, SOB, N/V, abdominal pain, dysuria, constipation/diarrhea. In the ED, Head CT unremarkable for acute intracranial findings but evidence of old lacunar infarcts. Hypertensive with systolic readings in 200s. She was treated with ASA 324 mg x 1. She will be admitted to telemetry for possible CVA. HOSPITAL COURSE: Left Pontine CVA - RUE and RLE Weakness - Imaging and Studies -- Head CT - no acute intracranial findings; evidence of chronic small vessel changes and small lacunar infarcts -- MRI Brain - small L pontine infarct; negative for hemorrhage or mass effect -- Carotid Dopplers - minimal athersclerotic plaque; no hemodynically significant blockage; systemic HTN - PT/OT services completed - recommendations were for home with use of cane for ambulation - patient not interested in home services at this time -- Advised her to discuss with PCP if future needs anticipated - Received loading dose of ASA 324 mg upon admission and continued with daily ASA 81 mg - Rx given for ASA 81 mg daily and Atorvastatin 40 mg daily - Rx given for Scopolamine for dizziness Home Medications: - Continued all home medications as previously prescribed without alterations in dosing. Follow-Up: - Advised patient to follow-up with PCP in 1-2 weeks Disposition: - Patient seen and evaluated on 11/09/16. No acute events or complaints overnight. Vitals stable and is optimal for D/C home with PCP follow-up. Total Time Spent: Greater than 30 minutes This includes examination of the patient, discharge planning, medication reconciliation, and communication with other providers. Discharge Instructions Please refer to the electronic Patient Visit Report (Discharge Instructions) for additional information. Additional Copies To Airam Sanchez M.D.
--- NOTE | 2016-11-09 14:00 | Discharge Summary ---
Discharge Summary Admission Date: Nov 07, 2016 at 13:22 Discharge Date: Nov 09, 2016 Discharge Disposition: Home Principal Diagnosis: left pontine CVA with right hemipelegia Medication Reconciliation New Medications: Aspirin (Aspirin EC Low Dose) 81 Mg Ectab 81 MG PO QAM for 365 Days Atorvastatin (Atorvastatin Calcium) 40 Mg Tab 40 MG PO QAM, #90 TAB 6 Refills Scopolamine (Transderm-Scop) 1.5 Mg Tdsy 1.5 MG TD Q72H, #4 PATCH Continued Medications: Doxycycline Hyclate (Vibramycin) 100 Mg Cap 100 MG PO UD takes for rosacea Folic Acid (Folic Acid) 400 Mcg Tab 800 MG PO DAILY Ibuprofen (Ibuprofen) 200 Mg Tab 800 MG PO UD Omeprazole (Prilosec) 40 Mg Cap 40 MG PO DAILY, #90 Triamterene/Hctz (Triamterene/Hctz 37.5-25MG) 1 Tab Tab 0.5 TAB PO DAILY, TAB Venlafaxine Hcl (Effexor Extended Rel) 75 Mg Capcr 75 MG PO DAILY, #30 Discharge Exam Review of Systems: Constitutional: No chills, No fever, No weight loss Respiratory: No cough, No shortness of breath, No sputum Cardiovascular: No chest pain, No edema, No orthopnea Abdomen: No diarrhea, No nausea, No pain Musculoskeletal: No joint pain, No muscle pain, No swelling Genitourinary - Female: No dysuria, No urinary frequency Genitourinary - Male: No dysuria, No hematuria Neurologic: + balance problems, + weakness Psychiatric: No anhedonism, No depression symptoms Physical Exam: General Appearance: WD/WN, no apparent distress Neck: supple, no JVD Respiratory/Chest: chest non-tender, lungs clear, normal breath sounds Cardiovascular: regular rate, rhythm, no murmur Abdomen / GI: normal bowel sounds, non tender, soft Extremities: no pedal edema, + pertinent finding (slightl rigth sided weakness but improved from admission) Neurologic/Psychiatric: alert, oriented x 3 Hospital Course Ms. 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 Discharge Instructions Please refer to the electronic Patient Visit Report (Discharge Instructions) for additional information.
--- NOTE | 2016-11-10 10:08 | Pharmacy Progress Note ---
Pharmacist Post D/C Phone Note Date of phone call: Nov 10, 2016. Individual with whom pharmacist spoke to: [Patient] The following questions were reviewed during the phone call with responses listed below each: Can you tell me the medications that you are currently taking as well as when and how you take each medication? - Medications Dose Route/Sig Max Daily Dose Days Date Category Dose Instructions Transderm-Scop (Scopolamine) 1.5 Mg Tdsy 1.5 Mg TD Q72H 11/09/16 Rx Aspirin EC Low Dose (Aspirin) 81 Mg Ectab 81 Mg PO QAM 365 11/09/16 Rx Atorvastatin Calcium (Atorvastatin) 40 Mg Tab 40 Mg PO QAM 11/09/16 Rx Vibramycin (Doxycycline Hyclate) 100 Mg Cap 100 Mg PO UD 11/07/16 Reported takes for rosacea Prilosec (Omeprazole) 40 Mg Cap 40 Mg PO DAILY 11/07/16 Reported Folic Acid 400 Mcg Tab 800 Mg PO DAILY 11/07/16 Reported Ibuprofen 200 Mg Tab 800 Mg PO UD 11/07/16 Reported Effexor Extended Rel (Venlafaxine Hcl) 75 Mg Capcr 75 Mg PO DAILY 11/07/16 Reported Triamterene/Hctz 37.5-25MG (Triamterene/HCTZ) 1 Tab Tab 0.5 Tab PO DAILY 11/07/16 Reported When have you missed any doses of your medications? - [] What side effects are you having from your medications? - [] What questions do you have about your medications? - [] What problems are you having obtaining your medications? - [] When is your next appointment with your primary care doctor? - [] Additional comments: - [] As per the Pharmacist Discharge Counseling for Stroke Patients Protocol, this phone call has been completed within 72 hours of discharge. Thank you for allowing us to be involved in the care of this patient. 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 Discharge counseling pharmacist contact information has already been provided to the patient should questions arise. Thank you for allowing us to be involved in the care of this patient.
--- NOTE | 2016-11-10 11:51 | Pharmacy Progress Note ---
Pharmacist Post D/C Phone Note Date of phone call: Nov 10, 2016. Individual with whom pharmacist spoke to: Willow Pawel The following questions were reviewed during the phone call with responses listed below each: Can you tell me the medications that you are currently taking as well as when and how you take each medication? - Patient was able to verbalize the medications she was taking, the dose, route, sig, and indication for each. Medications Dose Route/Sig Max Daily Dose Days Date Category Dose Instructions Transderm-Scop (Scopolamine) 1.5 Mg Tdsy 1.5 Mg TD Q72H 11/09/16 Rx Aspirin EC Low Dose (Aspirin) 81 Mg Ectab 81 Mg PO QAM 365 11/09/16 Rx Atorvastatin Calcium (Atorvastatin) 40 Mg Tab 40 Mg PO QAM 11/09/16 Rx Vibramycin (Doxycycline Hyclate) 100 Mg Cap 100 Mg PO UD 11/07/16 Reported takes for rosacea Prilosec (Omeprazole) 40 Mg Cap 40 Mg PO DAILY 11/07/16 Reported Folic Acid 400 Mcg Tab 800 Mg PO DAILY 11/07/16 Reported Ibuprofen 200 Mg Tab 800 Mg PO UD 11/07/16 Reported Effexor Extended Rel (Venlafaxine Hcl) 75 Mg Capcr 75 Mg PO DAILY 11/07/16 Reported Triamterene/Hctz 37.5-25MG (Triamterene/HCTZ) 1 Tab Tab 0.5 Tab PO DAILY 11/07/16 Reported When have you missed any doses of your medications? - None What side effects are you having from your medications? - None What questions do you have about your medications? - None What problems are you having obtaining your medications? - None When is your next appointment with your primary care doctor? - Patient will be seeing her PCP on 11/17. Patient will also be going for physical therapy on on Tuesdays to strengthen her legs and arms. Additional comments: - None As per the Pharmacist Discharge Counseling for Stroke Patients Protocol, this phone call has been completed within 72 hours of discharge. Thank you for allowing us to be involved in the care of this patient.
== END 2016-11-09 11:56 | disposition home or self-care (01) | DRG 65 ==
LOC: ENRESERVTM → ENRESERVDT → C.EDB 09:56 → C.2T 13:22
PROVIDERS: ADMIT Internal Medicine; ATTEND Internal Medicine
DX: I63.9 Cerebral infarction, unspecified (principal); G81.91 Hemiplegia, unspecified affecting right dominant side; R42 Dizziness and giddiness; I10 Essential (primary) hypertension; K21.9 Gastro-esophageal reflux disease without esophagitis; F32.9 Major depressive disorder, single episode, unspecified; Z79.2 Long term (current) use of antibiotics; Z79.899 Other long term (current) drug therapy

== ENCOUNTER → 2017-01-16 | Outpatient (CLI) | payer OTHER, BC ==
[~2017-01-16] MED LIST changes: -ASPEC325 PO; +ASPEC81 PO; -ATR25 PO; -BIOTPOW17 PO; -CRAN200C PO; -DESV50TA PO; +DOXY100C2 PO; +EFFSR75 PO; -FRRG PO; -LISI-461 PO; +LPT40 PO; -OMEP40CA PO; +OMEP40CA41 PO; +SCPTP TD; -SENNTAB13 PO; +TRIATAB3 PO; -doxycycline PO
[2017-01-16 13:47] LABS: BLOOD UREA NITROGEN 28 mg/dl (7-18)
== END | disposition home or self-care (01) ==
LOC: C.LABMFLN 11:30
PROVIDERS: ATTEND Family Medicine
DX: D48.1 Neoplasm of uncertain behavior of connective and other soft tissue (principal)

== ENCOUNTER 2017-02-06 09:00 | Inpatient (IN) | payer OTHER, BC ==
[~2017-02-06] VITALS: Ht 154.9 cm; Wt 89.4 kg
[2017-02-06] MEDS ORDERED: SODIUM CHLORIDE 0.9% 1000ML 1,000 ML IV SCH (09:28)
[2017-02-06 09:57] LABS: BASO % 0.4 %; BASO ABS # 0.03 K/uL (0-0.2); COMPLETE YES; EOS % 3.3 %; HEMATOCRIT 38.5 % (37-47); IG% 0.1 %; LYMPH % 28.3 %; LYMPH ABS # 1.98 K/uL (1.2-3.4); MEAN PLATELET VOLUME 9.2 fL (7.4-10.4); NEUT % 58.9 %; PLATELET COUNT 234 K/uL (130-400); RED BLOOD COUNT 3.97 M/uL (4.2-5.4); WHITE BLOOD COUNT 6.99 K/uL (4.8-10.8)
--- NOTE | 2017-02-06 10:00 | DIAGNOSTIC IMAGING REPORT ---
CHEST ONE VIEW PORTABLE CLINICAL HISTORY: Stroke COMPARISON STUDY: 01/09/2015 FINDINGS: The heart is borderline enlarged. There is a prominent right cardiophrenic angle fat pad. There is no failure. There is no focal pulmonary consolidation. There are no pleural effusions.[ IMPRESSION: No active disease in the chest. Electronically signed by: Bo Sherwood M.D. 02/06/2017 9:57 AM Dictated Date/Time: 02/06/2017 9:57 AM
--- NOTE | 2017-02-06 10:02 | DIAGNOSTIC IMAGING REPORT ---
CT HEAD WITHOUT CONTRAST (CT) CLINICAL HISTORY: Stroke COMPARISON STUDY: MRI the brain dated 11/07/2016, noncontrast head CT dated 11/07/2016 TECHNIQUE: Axial CT of the brain is performed from the vertex to the skull base. IV contrast was not administered for this examination. CT DOSE: 537.48 mGy.cm FINDINGS: No intra or extra-axial mass lesions are visualized. There is no CT evidence of acute cortical infarction. There is no evidence of midline shift. There is no acute hemorrhage. No calvarial fractures are visualized. There are patchy white matter hypodensities likely on a small vessel basis. There is a left pontine lacunar infarct which was reported on the MRI the brain performed October 2016 There is no evidence of pathologic ventricular dilatation. There is no evidence of acute sinusitis IMPRESSION: No acute intracranial findings Electronically signed by: Bo Sherwood M.D. 02/06/2017 10:00 AM Dictated Date/Time: 02/06/2017 9:58 AM
[2017-02-06 10:10] LABS: INR 0.9 (0.9-1.1); PARTIAL THROMBOPLASTIN RATIO 0.9
[2017-02-06 10:14] LABS: BLOOD UREA NITROGEN 24 mg/dl (7-18); BUN/CREATININE RATIO 25.4 (10-20); CALCIUM 9.1 mg/dl (8.5-10.1); CARBON DIOXIDE 27 mmol/L (21-32); CHLORIDE 110 mmol/L (98-107); CREATININE 0.96 mg/dl (0.60-1.20); GLUCOSE 98 mg/dl (70-99); POTASSIUM 4.3 mmol/L (3.5-5.1); SODIUM 144 mmol/L (136-145)
[2017-02-06 10:19] LABS: CKMB/CK RATIO 1.7 (0-3.0)
--- NOTE | 2017-02-06 10:34 | EMERGENCY ROOM VISIT NOTE ---
History Report prepared by Estefanía: Roshan Canseco Under the Supervision of: Dr. Isaías Mercer M.D. First contact with patient: 09:27 Chief Complaint: NEURO SYMPTOMS Stated Complaint: STROKE SX Nursing Triage Summary: Pt reports she woke up at 0615, sat up in bed, looked at the window and it felt like "the window was getting far away and then closer". Pt reports she also had a severe headache sx intermittent until 0800 History of Present Illness The patient is a 76 year old female who presents to the Emergency Room with complaints of a severe and persistent headache starting this morning. In October 2016, the patient was in [employer] when she had a sudden onset of dizziness. She had a CT scan at the time and she was diagnosed with a TIA. She has a history of multiple TIA. 2 days ago, the patient felt confused and "out of it". Yesterday she was at baseline. When she got up this morning, she started having dizziness which she describes as "the window was getting far and then closer" and "things were getting far and then closer". She then started having a severe headache. She currently denies any dizziness. She reports right sided weakness from a prior stroke. The patient denies fevers, chills, chest pain, shortness of breath, urinary symptoms, or any other complaints. She takes aspirin but denies any other blood thinners. Source of History: patient Onset: this morning Position: head Symptom Intensity: severe Timing: other (persistent) Associated Symptoms: + weakness (right sided), No SOB, No chest pain, No chills, No fevers, No urinary symptoms Review of Systems See HPI for pertinent positives & negatives. A total of 10 systems reviewed and were otherwise negative. Past Medical & Surgical Medical Problems: (1) Elevated cholesterol (2) GERD (gastroesophageal reflux disease) (3) Hypertension (4) Peptic ulcer disease (5) TIA (transient ischemic attack) Surgical Problems: (1) S/P cholecystectomy Family History Cancer Diabetes mellitus Social History Smoking Status: Never Smoker Drug Use: none Marital Status: Housing Status: lives with significant other Occupation Status: retired Current/Historical Medications Scheduled Aspirin (Aspirin EC Low Dose), 81 MG PO QAM Atorvastatin (Atorvastatin Calcium), 40 MG PO QAM Doxycycline Hyclate (Vibramycin), 100 MG PO UD Folic Acid (Folic Acid), 800 MG PO DAILY Ibuprofen (Ibuprofen), 800 MG PO UD Omeprazole (Prilosec), 40 MG PO DAILY Triamterene/Hctz (Triamterene/Hctz 37.5-25MG), 0.5 TAB PO DAILY Venlafaxine Hcl (Effexor Extended Rel), 75 MG PO DAILY Allergies Coded Allergies: Ampicillin (Verified Allergy, Intermediate, RASH, 11/07/16) Celecoxib (Verified Allergy, Intermediate, hives, 11/07/16) tolerates aspirin Oxycodone (Verified Allergy, Intermediate, n/v, hives, 11/07/16) Hydrocodone (Verified Adverse Reaction, Mild, hallucinations, 11/07/16) Physical Exam Vital Signs Date Time Temp Pulse Resp B/P Pulse Ox O2 Delivery O2 Flow Rate FiO2 02/06/17 12:20 68 18 193/80 97 Room Air 02/06/17 10:52 36.7 62 20 196/92 94 Room Air 02/06/17 10:51 74 209/80 94 Room Air 02/06/17 09:41 55 02/06/17 09:06 36.7 71 18 173/80 95 Room Air Physical Exam GENERAL: Patient is a healthy-appearing well-nourished HEAD: Normocephalic atraumatic EYES: Ocular movements intact pupils equal and react to light OROPHARYNX mucous membranes are moist no exudates present no erythema or edema present NECK: Supple no nuchal rigidity CHEST: Good equal expansion LUNGS: Clear and equal to auscultation CARDIAC: Normal S1 and S2 ABDOMEN: Soft nontender no guarding BACK: No CVA tenderness EXTREMITIES: No pain upon palpation normal muscle strength in all groups no clubbing cyanosis or edema NEURO: Patient is following commands is answering questions appropriately. Alert and oriented x3 Cranial Nerves 2-12 grossly intact. 4/5 strength right lower extremity and right upper extremity. Medical Decision & Procedures ER Provider Diagnostic Interpretation: X-ray results as stated below per interpretation by me and the radiologist: CHEST ONE VIEW PORTABLE CLINICAL HISTORY: Stroke COMPARISON STUDY: 01/09/2015 FINDINGS: The heart is borderline enlarged. There is a prominent right cardiophrenic angle fat pad. There is no failure. There is no focal pulmonary consolidation. There are no pleural effusions.[ IMPRESSION: No active disease in the chest. Electronically signed by: Bo Sherwood M.D. 02/06/2017 9:57 AM Dictated Date/Time: 02/06/2017 9:[address] results as stated below per my review and radiologist interpretation: CT HEAD WITHOUT CONTRAST (CT) CLINICAL HISTORY: Stroke COMPARISON STUDY: MRI the brain dated 11/07/2016, noncontrast head CT dated 11/07/2016 TECHNIQUE: Axial CT of the brain is performed from the vertex to the skull base. IV contrast was not administered for this examination. CT DOSE: 537.48 mGy.cm FINDINGS: No intra or extra-axial mass lesions are visualized. There is no CT evidence of acute cortical infarction. There is no evidence of midline shift. There is no acute hemorrhage. No calvarial fractures are visualized. There are patchy white matter hypodensities likely on a small vessel basis. There is a left pontine lacunar infarct which was reported on the MRI the brain performed October 2016 There is no evidence of pathologic ventricular dilatation. There is no evidence of acute sinusitis IMPRESSION: No acute intracranial findings Electronically signed by: Bo Sherwood M.D. 02/06/2017 10:00 AM Dictated Date/Time: 02/06/2017 9:58 AM Laboratory Results 02/06/17 09:30 Red Blood Count 3.97, Mean Corpuscular Volume 97.0, Mean Corpuscular Hemoglobin 33.0, Mean Corpuscular Hemoglobin Concent 34.0, Mean Platelet Volume 9.2, Neutrophils (%) (Auto) 58.9, Lymphocytes (%) (Auto) 28.3, Monocytes (%) (Auto) 9.0, Eosinophils (%) (Auto) 3.3, Basophils (%) (Auto) 0.4, Neutrophils # (Auto) 4.11, Lymphocytes # (Auto) 1.98, Monocytes # (Auto) 0.63, Eosinophils # (Auto) 0.23, Basophils # (Auto) 0.03 02/06/17 09:30 Test 02/06/17 09:30 02/06/17 09:39 White Blood Count 6.99 K/uL (4.8-10.8) Red Blood Count 3.97 M/uL (4.2-5.4) Hemoglobin 13.1 g/dL (12.0-16.0) Hematocrit 38.5 % (37-47) Mean Corpuscular Volume 97.0 fL (80-100) Mean Corpuscular Hemoglobin 33.0 pg (25-34) Mean Corpuscular Hemoglobin Concent 34.0 g/dl (32-36) Platelet Count 234 K/uL (130-400) Mean Platelet Volume 9.2 fL (7.4-10.4) Neutrophils (%) (Auto) 58.9 % Lymphocytes (%) (Auto) 28.3 % Monocytes (%) (Auto) 9.0 % Eosinophils (%) (Auto) 3.3 % Basophils (%) (Auto) 0.4 % Neutrophils # (Auto) 4.11 K/uL (1.4-6.5) Lymphocytes # (Auto) 1.98 K/uL (1.2-3.4) Monocytes # (Auto) 0.63 K/uL (0.11-0.59) Eosinophils # (Auto) 0.23 K/uL (0-0.5) Basophils # (Auto) 0.03 K/uL (0-0.2) RDW Standard Deviation 43.5 fL (36.4-46.3) RDW Coefficient of Variation 12.1 % (11.5-14.5) Immature Granulocyte % (Auto) 0.1 % Immature Granulocyte # (Auto) 0.01 K/uL (0.00-0.02) Prothrombin Time 10.0 SECONDS (9.0-12.0) Prothromb Time International Ratio 0.9 (0.9-1.1) Activated Partial Thromboplast Time 24.0 SECONDS (21.0-31.0) Partial Thromboplastin Ratio 0.9 Anion Gap 7.0 mmol/L (3-11) Est Creatinine Clear Calc Drug Dose 49.7 ml/min Estimated GFR () 66.1 Estimated GFR (Non- 57.0 BUN/Creatinine Ratio 25.4 (10-20) Calcium Level 9.1 mg/dl (8.5-10.1) Magnesium Level 2.3 mg/dl (1.8-2.4) Total Creatine Kinase 173 U/L (26-192) Creatine Kinase MB 3.0 ng/ml (0.5-3.6) Creatine Kinase MB Ratio 1.7 (0-3.0) Troponin I < 0.015 ng/ml (0-0.045) Bedside Prothrombin Time INR 0.9 (0.9-1.1) Labs reviewed by ED physician. Medications Administered Medications (Trade) Dose Ordered Sig/Manuel Route Start Time Stop Time Status Last Admin Dose Admin Sodium Chloride 1,000 ml @ 50 mls/hr Q20H IV 02/06/17 09:28 02/06/17 14:11 DC 02/06/17 09:28 50 MLS/HR Sodium Chloride (Nss 1000ml) 1,000 ml @ 100 mls/hr Q10H IV 02/06/17 12:18 03/08/17 12:17 02/06/17 14:59 100 MLS/HR ECG Indication: other (Headache) Rate (beats per minute): 57 Rhythm: sinus bradycardia Findings: no acute ischemic change, no ectopy ED Course 926: Past medical records reviewed. The patient was evaluated in room B10. A complete history and physical examination was performed. 0928: Sodium Chloride 1000 ml @ 50 mls/hr IV 1017: Upon reexamination the patient is resting comfortably. I discussed results and treatment plan with the patient and her family. They verbalize agreement and understanding. [facility] The patient will be evaluated for further management. Medical Decision Differential diagnosis: Etiologies such as metabolic, infection, hypo/hyperglycemia, electrolyte abnormalities, cardiac sources, intracerebral event, toxicologic, neurologic, as well as others were entertained. This is a 76-year-old female who presents here she department complaining of right-sided weakness that started acutely this morning after waking. The patient has a history of a CVA in the past. The patient reports last time she had a TIA that she had this right-sided weakness as well. She is already out of the window for TPA. For this reason the patient was given normal saline bolus. Based on her complaints I did discuss the case with the hospitalist service who agreed to admit the patient. Patient was in agreement with the treatment plan. Consults Time Called: [phone] Consulting Physician: [facility] Returned Call: [phone] [facility]. Impression Primary Impression: Right sided weakness Scribe Attestation The scribe's documentation has been prepared under my direction and personally reviewed by me in its entirety. I confirm that the note above accurately reflects all work, treatment, procedures, and medical decision making performed by me. Departure Information Dispostion Being Evaluated By Hospitalist Referrals Airam Sanchez M.D. (PCP) Patient Instructions [facility]
[2017-02-06 10:52] VITALS: BP 196/92; PULSE 62; TEMP 36.7; O2SAT 94; Ht 154.9 cm; Wt 89.4 kg
--- NOTE | 2017-02-06 12:29 | History and Physical ---
History & Physical Date & Time of Service: Feb 06, 2017 at 11:46 Chief Complaint: Stroke Sx Primary Care Physician: Airam Sanchez M.D. History of Present Illness Source: patient, family, spouse 76yo female with h/o stroke in October 2016 who presents with c/o visual disturbance starting this AM when she awoke about 8am. She states that the window in her bedroom was "moving towards me." She had no blurry vision or visual field cuts. Denies dizziness or lightheadedness or vertigo. Denies balance issues today. However, on Monday afternoon, she felt unsteady on her feet on Monday. Monday had no neurological symptoms. Developed frontal headache right after her symptoms started. The visual disturbance lasted <1 minute. She got up from the bed and started walking into the hallway and felt "like the floor was higher than it was." No weakness in arms/legs. No dysphagia or dysarthria/aphasia today. The moving visual disturbance has resolved but now she has blurry vision. The walking/gait issue is now better now as well. Still has "slight" headache. No paresthesias. Has residual right-sided weakness from her stroke in October (leg and arm). Past Medical/Surgical History PMH: 1. stroke with resulting mild right sided weakness - October 2016 2. prior lacunar strokes (silent) 3. HTN 4. hyperlipidemia 5. GERD 6. no CAD or T2DM 7. 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 rosacea PSH: 1. cholecystectomy 2. spinal tumor resection 2009 3. skin grafting to sacral area 4. hernia of the original sacral incision requiring repeat operation to close it (s/p mesh) 5. b/l total knee replacements Family History no family h/o stroke mother - [place] - age 69 father - brain tumor, age 32 son - brain aneurysm with rupture Social History Smoking Status: Never Smoker Alcohol Use: none Drug Use: none Marital Status: (2 kids ) Housing status: lives with family (in [place]) Occupational Status: retired ([employer]) Multi-Drug Resistant Organisms History of MDRO: No Allergies Coded Allergies: Ampicillin (Verified Allergy, Intermediate, RASH, 11/07/16) Celecoxib (Verified Allergy, Intermediate, hives, 11/07/16) tolerates aspirin Oxycodone (Verified Allergy, Intermediate, n/v, hives, 11/07/16) Hydrocodone (Verified Adverse Reaction, Mild, hallucinations, 11/07/16) Home Medications Scheduled Aspirin (Aspirin EC Low Dose), 81 MG PO QAM Atorvastatin (Atorvastatin Calcium), 40 MG PO QAM Doxycycline Hyclate (Vibramycin), 100 MG PO UD Folic Acid (Folic Acid), 800 MG PO DAILY Ibuprofen (Ibuprofen), 800 MG PO UD Omeprazole (Prilosec), 40 MG PO DAILY Triamterene/Hctz (Triamterene/Hctz 37.5-25MG), 0.5 TAB PO DAILY Venlafaxine Hcl (Effexor Extended Rel), 75 MG PO DAILY Review of Systems Constitutional: No chills, No fatigue, No fever, No sweats, No weakness Eyes: No diplopia, No discharge, No redness ENT: No nasal symptoms, No sore throat, No trouble swallowing Respiratory: No cough, No dyspnea at rest, No dyspnea on exertion, No shortness of breath Cardiovascular: No PND, No chest pain, No edema, No orthopnea, No palpitations Abdomen: No GI bleeding, No diarrhea, No nausea, No pain, No vomiting Musculoskeletal: No joint pain Genitourinary - Female: No dysuria, No hematuria Neurologic: + memory loss (mild), No numbness/tingling, No vertigo Psychiatric: + anxiety, No depression symptoms Hematologic / Lymphatic: No abnormal bleeding/bruising Integumentary: No rash Allergic / Immunologic: No environmental allergies Physical Exam Vital Signs Date Time Temp Pulse Resp B/P Pulse Ox O2 Delivery O2 Flow Rate FiO2 02/06/17 10:52 94 Room Air 02/06/17 10:51 74 209/80 94 Room Air 02/06/17 09:41 55 02/06/17 09:06 36.7 71 18 173/80 95 Room Air General Appearance: WD/WN, no apparent distress, + obese Head: normocephalic, atraumatic Eyes: normal inspection, PERRL, EOMI, sclerae normal, + pertinent finding ( visual escobar full by direct confrontation ) ENT: hearing grossly normal, TMs normal, pharynx normal Neck: supple, no adenopathy, thyroid normal, no JVD Respiratory/Chest: lungs clear, no respiratory distress, no accessory muscle use Cardiovascular: regular rate, rhythm, no gallop, no murmur, normal peripheral pulses Abdomen/GI: normal bowel sounds, non tender, soft, no organomegaly Back: normal inspection Extremities/Musculoskelatal: no pedal edema Neurologic/Psych: surgical orderly II-XII nml as tested, alert, normal mood/affect, oriented x 3, + motor weakness (4-5/5 strength RUE/RLE), + abnormal reflexes ( slightly more brisk on right (arm/leg) vs the left), + pertinent finding (no dysmetria with finger/nose/finger maneuver or with heel-hernandez maneuver; gait not assessed; negative babinski's b/l ) Skin: no rash Lymphatic: no adenopathy (cervical ) Diagnostics Laboratory Results Results Past 24 Hours Test 02/06/17 09:30 02/06/17 09:39 Range/Units White Blood Count 6.99 4.8-10.8 K/uL Red Blood Count 3.97 4.2-5.4 M/uL Hemoglobin 13.1 12.0-16.0 g/dL Hematocrit 38.5 37-47 % Mean Corpuscular Volume 97.0 80-100 fL Mean Corpuscular Hemoglobin 33.0 25-34 pg Mean Corpuscular Hemoglobin Concent 34.0 32-36 g/dl Platelet Count 234 130-400 K/uL Mean Platelet Volume 9.2 7.4-10.4 fL Neutrophils (%) (Auto) 58.9 % Lymphocytes (%) (Auto) 28.3 % Monocytes (%) (Auto) 9.0 % Eosinophils (%) (Auto) 3.3 % Basophils (%) (Auto) 0.4 % Neutrophils # (Auto) 4.11 1.4-6.5 K/uL Lymphocytes # (Auto) 1.98 1.2-3.4 K/uL Monocytes # (Auto) 0.63 0.11-0.59 K/uL Eosinophils # (Auto) 0.23 0-0.5 K/uL Basophils # (Auto) 0.03 0-0.2 K/uL RDW Standard Deviation 43.5 36.4-46.3 fL RDW Coefficient of Variation 12.1 11.5-14.5 % Immature Granulocyte % (Auto) 0.1 % Immature Granulocyte # (Auto) 0.01 0.00-0.02 K/uL Prothrombin Time 10.0 9.0-12.0 SECONDS Prothromb Time International Ratio 0.9 0.9-1.1 Activated Partial Thromboplast Time 24.0 21.0-31.0 SECONDS Partial Thromboplastin Ratio 0.9 Sodium Level 144 136-145 mmol/L Potassium Level 4.3 3.5-5.1 mmol/L Chloride Level 110 98-107 mmol/L Carbon Dioxide Level 27 21-32 mmol/L Anion Gap 7.0 3-11 mmol/L Blood Urea Nitrogen 24 7-18 mg/dl Creatinine 0.96 0.60-1.20 mg/dl Est Creatinine Clear Calc Drug Dose 49.7 ml/min Estimated GFR () 66.1 Estimated GFR (Non- 57.0 BUN/Creatinine Ratio 25.4 10-20 Random Glucose 98 70-99 mg/dl Calcium Level 9.1 8.5-10.1 mg/dl Total Creatine Kinase 173 26-192 U/L Creatine Kinase MB 3.0 0.5-3.6 ng/ml Creatine Kinase MB Ratio 1.7 0-3.0 Troponin I < 0.015 0-0.045 ng/ml Bedside Prothrombin Time INR 0.9 0.9-1.[address] head - FINDINGS: No intra or extra-axial mass lesions are visualized. There is no CT evidence of acute cortical infarction. There is no evidence of midline shift. There is no acute hemorrhage. No calvarial fractures are visualized. There are patchy white matter hypodensities likely on a small vessel basis. There is a left pontine lacunar infarct which was reported on the MRI the brain performed October 2016 There is no evidence of pathologic ventricular dilatation. There is no evidence of acute sinusitis IMPRESSION: No acute intracranial findings CXR - no infiltrates EKG EKG - my reading - NSR, PAC, no ST changes Impression Assessment and Plan 76yo female with prior left-sided stroke with residual right sided weakness presenting with visual disturbance and gait abnormality - perhaps related to the visual disturbance - starting this am upon awakening at 8am. NO visual field cuts by her history. NO ataxia, vertigo, or GI symptoms. Presented with markedly elevated BP. 1. TIA vs stroke, concern of occipital lobe in origin - MRI brain, MRA head/neck. had NORMAL echo in October 2016 - defer for now unless rest of work-up is unrevealing. telemetry overnight. continue aspirin but probably will need to change to plavix or aggrenox depending on work-up and findings. lipids, a1c in am. PT, OT, dysphagia/speech eval. consider neurology consultation. allow permissive HTN tonight in light of her symptoms. 2. HTN - hold triamterene/HCTZ. 3. elevated BUN - likely due to diuretic usage at home. Hydrate overnight, repeat BMP am. Hold diuretic. Check orthostatics - if these are + could be contributing to her symptoms. 4. gait disturbance - B12 level was mildly low in 2016; repeat in AM. Await MRI brain. Check u/a to ensure no complicating UTI. 5. FEN - hydrate with NS and repeat BMP am. 6. DVT proph - heparin TID. 7. CKD stage 2 - creatinine is at baseline. 8. hyperlipidemia - repeat lipids in AM; continue her statin. Check hemoglobin a1c to r/o early DM. Family updated at bedside. Time - about 70 minutes. Level of Care Telemetry Advanced Directives Existing Living Will: Yes Existing Power of Contact Lens Technician: Yes (FANG ) Resuscitation Status FULL RESUSCITATION VTE Prophylaxis Risk Level: Moderate Given or contraindicated: Unfractionated heparin SQ Additional Copies To Airam Sanchez M.D.
[2017-02-06] MEDS ORDERED: ALUMINUM/MAGNESIUM/SIMETH (MAALOX MAX) 30 ML UDC PO PRN (12:30)
[2017-02-06] MEDS ORDERED: ONDANSETRON INJ 2 MG/ML 2 ML VIAL IV PRN (12:30)
[2017-02-06] MEDS ORDERED: PHARMACIST DISCHARGE MED REC CONSULT PRN (12:30)
[2017-02-06] MEDS ORDERED: NITROGLYCERIN 0.4 MG SL PER TAB CHARGE SL PRN (12:30)
[2017-02-06] MEDS ORDERED: MAGNESIUM HYDROXIDE SUSP 30 ML UDC PO PRN (12:30)
[2017-02-06] MEDS ORDERED: POLYETHYLENE (MIRALAX) 17 GM PACK PO PRN (12:30)
[2017-02-06] MEDS: SODIUM CHLORIDE 0.9% 1000ML 1,000 ML IV SCH (14:59)
[2017-02-06] MEDS: HEPARIN SOD 5000 UNIT/0.5 ML CARP SQ SCH ×2 (15:00→22:22)
[2017-02-06 16:03] VITALS: BP 150/79; PULSE 63; TEMP 36.8; O2SAT 95
--- NOTE | 2017-02-06 17:56 | DIAGNOSTIC IMAGING REPORT ---
MR ANGIOGRAM OF THE BRAIN CLINICAL HISTORY: Strokelike symptoms. COMPARISON STUDY: CT of the brain dated 02/06/2017. TECHNIQUE: 3-D [id number] MR angiography of the intracranial circulation is performed. 3-D tumble views are created and assessed. IV contrast was not administered for this examination. The examination is degraded by motion artifact. FINDINGS: There is origin of the right posterior cerebral artery. Atherosclerotic irregularity is noted in the cavernous carotid arteries bilaterally. Atherosclerotic irregularity is also seen throughout the middle cerebral arteries. The internal carotid arteries are patent bilaterally, as are the anterior and middle cerebral arteries. The vertebrobasilar system and posterior cerebral arteries are widely patent. The vertebral arteries are codominant. There is no aneurysm, high-grade stenosis, or focal vessel cutoff seen throughout the intracranial circulation. A chronic lacunar infarct is again seen in the left bernadette. IMPRESSION: Unremarkable MR angiogram of the brain noting a motion degraded examination. Electronically signed by: Loki Jenkins M.D. 02/06/2017 5:54 PM Dictated Date/Time: 02/06/2017 5:51 PM
[2017-02-06] MEDS ORDERED: GADAVIST IV PRN (18:00)
--- NOTE | 2017-02-06 19:05 | DIAGNOSTIC IMAGING REPORT ---
MR ANGIOGRAM OF THE NECK COMBO CLINICAL HISTORY: Visual disturbances. Clinical concern for stroke. COMPARISON STUDY: Carotid artery ultrasound dated 11/07/2016. TECHNIQUE: Axial 2-D [id number] MR angiography of the neck is performed. Subsequently, following the IV administration of 20 cc of Magnevist coronal MR angiogram of the neck was performed to corroborate the findings. 3-D reformats are created and assessed. All measurements were calculated based on NASCET criteria. Subtraction imaging was utilized. FINDINGS: Visualized portions of the thoracic aorta are normal in caliber. The aortic arch demonstrates bovine variant anatomy. The subclavian arteries are widely patent bilaterally. The right common carotid artery is widely patent, as are the right internal and external carotid arteries. The left common carotid artery is widely patent, as are the left internal and external carotid arteries. The vertebral arteries are widely patent and codominant. The partially imaged intracranial vessels are normal in appearance. IMPRESSION: Unremarkable MR angiogram of the neck. Electronically signed by: Loki Jenkins M.D. 02/06/2017 7:03 PM Dictated Date/Time: 02/06/2017 6:59 PM
--- NOTE | 2017-02-06 19:16 | DIAGNOSTIC IMAGING REPORT ---
MRI OF THE BRAIN COMBO CLINICAL HISTORY: Visual disturbances. Clinical concern for stroke. COMPARISON STUDY: CT of the brain dated 02/06/2017. TECHNIQUE: MRI of the brain was performed utilizing various T1 and T2-weighted sequences in the axial, sagittal, and coronal planes. Contrast-enhanced sequences were acquired following the administration of 9 cc of Gadavist. FINDINGS: Brain parenchyma: There are age-related involutional changes noting mild to moderate patchy subcortical and periventricular microangiopathic disease. Chronic lacunar infarcts are identified in the left bernadette, the right caudate head, and the right basal ganglia. There is no hemorrhage or mass effect. There is no restricted diffusion to suggest acute ischemia. No enhancing mass lesion is identified on the postcontrast images. Grijalva-white matter differentiation is preserved. No extra-axial fluid collection is seen. The cerebellar tonsils are normal in configuration. Ventricles, sulci, and cisterns: Normal in configuration. Pituitary and sella: Partially of the sella is incidentally noted. Intracranial vasculature: Normal flow voids are maintained at the skull base. Orbits: The bony orbits are grossly intact. Orbital contents are normal in appearance. Sinuses and mastoids: Trace mucosal thickening seen within the right maxillary antrum. The remaining paranasal sinuses are clear. The mastoid air cells are well pneumatized. Calvarium: Unremarkable. Cervical cord: Partially visualized cervical spinal cord is normal in morphology and signal intensity. IMPRESSION: No acute intracranial abnormality. Electronically signed by: Loki Jenkins M.D. 02/06/2017 7:14 PM Dictated Date/Time: 02/06/2017 7:10 PM
[2017-02-06 20:25] VITALS: BP_SYST 139; BP_SYST 171; BP_SYST 182; BP_DIAS 70; BP_DIAS 73; BP_DIAS 77; PULSE 86
[2017-02-06 20:45] VITALS: BP 157/77; PULSE 62; TEMP 36.9; O2SAT 96
[2017-02-06] MEDS: ACETAMINOPHEN 325 MG TAB PO PRN (22:21)
[2017-02-06 22:35] LABS: URINE APPEARANCE CLEAR (CLEAR); URINE BILIRUBIN NEG (NEG); URINE COLOR YELLOW; URINE EPITHELIAL CELL AUTO 20-30 /lpf (0-5); URINE NITRITE NEG (NEG); URINE SPECIFIC GRAVITY 1.023 (1.000-1.030); UROBILINOGEN NEG (NEG); ZZUR CULT IF INDIC CLEAN CATCH NO
[2017-02-06 22:36] LABS: MANUAL MICROSCOPIC REQUIRED? NO; REVIEW REQ? NO
[2017-02-06 22:50] LABS: BENZODIAZEPINE, URINE NEG (NEG); COCAINE,URINE NEG (NEG); PHENCYCLIDINE, URINE NEG (NEG)
[2017-02-06 23:44] VITALS: BP 137/77; PULSE 68; TEMP 37.1; O2SAT 95
[2017-02-07] VITALS (8 sets, daily range): BP systolic 136–186; BP diastolic 76–89; PULSE 60–99; TEMP 36.5–36.9; O2SAT 91–97
[2017-02-07] MEDS: SODIUM CHLORIDE 0.9% 1000ML 1,000 ML IV SCH ×3 (02:45→21:27)
[2017-02-07] MEDS: HEPARIN SOD 5000 UNIT/0.5 ML CARP SQ SCH ×3 (05:36→21:28)
[2017-02-07] MEDS: ACETAMINOPHEN 325 MG TAB PO PRN ×2 (05:38→21:30)
[2017-02-07 06:55] LABS: BASO % 0.3 %; BASO ABS # 0.02 K/uL (0-0.2); COMPLETE YES; EOS % 4.1 %; HEMATOCRIT 35.8 % (37-47); IG% 0.1 %; LYMPH % 33.6 %; LYMPH ABS # 2.29 K/uL (1.2-3.4); MEAN CELL VOLUME 96.5 fL (80-100); MEAN CORPUSCULAR HEMOGLOBIN 32.6 pg (25-34); MEAN CORPUSCULAR HGB CONC 33.8 g/dl (32-36); MEAN PLATELET VOLUME 9.1 fL (7.4-10.4); MONO % 6.5 %; NEUT % 55.4 %; PLATELET COUNT 209 K/uL (130-400); RED BLOOD COUNT 3.71 M/uL (4.2-5.4); WHITE BLOOD COUNT 6.81 K/uL (4.8-10.8)
[2017-02-07 07:45] LABS: BUN/CREATININE RATIO 23.1 (10-20); CALCIUM 8.5 mg/dl (8.5-10.1); CREATININE 0.99 mg/dl (0.60-1.20); POTASSIUM 4.6 mmol/L (3.5-5.1)
[2017-02-07 07:48] LABS: CHOLESTEROL/HDL RATIO 3.1
[2017-02-07] MEDS: FoLIC ACID TAB 400 MCG TAB PO SCH (08:09)
[2017-02-07] MEDS: ATORVASTATIN 40 MG TAB PO SCH (08:09)
[2017-02-07] MEDS: ASPIRIN 81 MG ECTAB PO SCH (08:09)
[2017-02-07] MEDS: PANTOprazole SOD 40 MG TAB PO SCH (08:10)
[2017-02-07] MEDS ORDERED: VENLAFAXINE HCL XR 75 MG CAPXR PO SCH (09:00)
[2017-02-07 09:48] LABS: ESTIMATED AVERAGE GLUCOSE 117 mg/dl; HA1C FLAG Normal (Normal)
--- NOTE | 2017-02-07 13:16 | Family Medicine Progress Note ---
Progress Note Date of Service Feb 07, 2017. Subjective Pain: none PO Intake: good Voiding: no voiding problems 76-year-old female with past medical history of a stroke in October 2016, hypertension, hyperlipidemia, GERD, spinal chordoma status post resection presented to the ER with complaints of visual disturbance after she woke up yesterday. It lasted for about a minute . She was admitted for TIA workup. She complains of feeling foggy in her head. Denied any weakness, numbness or tingling, dizziness or lightheadedness, slurring of speech or vision disturbances, dysphagia or dysarthria. Denies chest pain, shortness of breath, palpitations. Constitutional: + problem reported (complains of feeling foggy), No chills, No fever Eyes: No worsening of vision ENT: No hearing loss Respiratory: No cough, No shortness of breath, No sputum, No wheezing Cardiovascular: No chest pain, No palpitations Abdomen: No nausea, No pain, No vomiting Neurologic: No memory loss, No numbness/tingling, No paralysis, No weakness Psychiatric: No depression symptoms Heme: No abnormal bleeding/bruising Endo: No fatigue Medications Current Inpatient Medications Medications (Trade) Dose Ordered Sig/Manuel Route Start Time Stop Time Status Last Admin Dose Admin Miscellaneous Information 1 ea 1 ea UD PRN N/A 02/06/17 12:30 03/08/17 12:29 Sodium Chloride (Nss 1000ml) 1,000 ml @ 100 mls/hr Q10H IV 02/06/17 12:18 03/08/17 12:17 02/07/17 13:22 100 MLS/HR Heparin Sodium (Porcine) (Heparin Sq 5000 Unit/0.5ml) 5,000 unit Q8 SQ 02/06/17 14:00 03/08/17 13:59 02/07/17 13:22 5,000 UNIT Acetaminophen (Tylenol Tab) 650 mg Q4H PRN PO 02/06/17 12:30 03/08/17 12:29 02/07/17 05:38 650 MG Al Hydrox/Mg Hydrox/Simethicone (Maalox Max Susp) 15 ml Q4H PRN PO 02/06/17 12:30 03/08/17 12:29 Magnesium Hydroxide (Milk Of Magnesia Susp) 30 ml Q12H PRN PO 02/06/17 12:30 03/08/17 12:29 Ondansetron HCl (Zofran Inj) 4 mg Q6H PRN IV 02/06/17 12:30 03/08/17 12:29 Nitroglycerin (Nitrostat Tab) 0.4 mg UD PRN SL 02/06/17 12:30 03/08/17 12:29 Polyethylene (Miralax Powder Packet) 17 gm DAILY PRN PO 02/06/17 12:30 03/08/17 12:29 Aspirin (Ecotrin Tab) 81 mg QAM PO 02/07/17 09:00 03/09/17 08:59 02/07/17 08:09 81 MG Atorvastatin Calcium (Lipitor Tab) 40 mg QAM PO 02/07/17 09:00 03/09/17 08:59 02/07/17 08:09 40 MG Folic Acid (Folvite Tab) 800 mcg DAILY PO 02/07/17 09:00 03/09/17 08:59 02/07/17 08:09 800 MCG Venlafaxine HCl (effeXOR EXTENDED REL CAP) 75 mg DAILY PO 02/07/17 09:00 03/09/17 08:59 02/07/17 08:09 75 MG Pantoprazole Sodium (Protonix Tab) 40 mg QAM PO 02/07/17 09:00 03/09/17 08:59 02/07/17 08:10 40 MG Gadobutrol (Gadavist) 9 mmol UD PRN IV 02/06/17 18:00 02/10/17 17:59 Objective Vital Signs Date Time Temp Pulse Resp B/P Pulse Ox O2 Delivery O2 Flow Rate FiO2 02/07/17 12:00 Room Air 02/07/17 11:22 36.9 70 136/89 94 Room Air 02/07/17 08:55 67 02/07/17 08:00 Room Air 02/07/17 07:31 36.7 60 20 162/76 96 Room Air 02/07/17 04:00 Room Air 02/07/17 03:49 36.5 61 18 138/76 96 Room Air 02/07/17 00:00 Room Air 02/06/17 23:44 37.1 68 17 137/77 95 Room Air 02/06/17 20:45 36.9 62 20 157/77 96 Room Air 02/06/17 20:25 86 139/73 171/70 182/77 02/06/17 20:00 Room Air 02/06/17 16:03 36.8 63 20 150/79 95 Room Air 02/06/17 15:25 Room Air Physical Exam General Appearance: WD/WN, no apparent distress Eyes: normal inspection ENT: normal ENT inspection, hearing grossly normal Neck: supple Respiratory/Chest: chest non-tender, lungs clear, normal breath sounds, no respiratory distress, no accessory muscle use Cardiovascular: regular rate, rhythm Abdomen: normal bowel sounds, non tender, soft Extremities: normal range of motion, non-tender, no pedal edema Neurologic/Psychiatric: outcome analyst II-XII nml as tested, no motor/sensory deficits ( right lower extremity 4/5), alert, normal mood/affect, oriented x 3 Skin: normal color Laboratory Results 02/07/17 06:39 Red Blood Count 3.71, Mean Corpuscular Volume 96.5, Mean Corpuscular Hemoglobin 32.6, Mean Corpuscular Hemoglobin Concent 33.8, Mean Platelet Volume 9.1, Neutrophils (%) (Auto) 55.4, Lymphocytes (%) (Auto) 33.6, Monocytes (%) (Auto) 6.5, Eosinophils (%) (Auto) 4.1, Basophils (%) (Auto) 0.3, Neutrophils # (Auto) 3.77, Lymphocytes # (Auto) 2.29, Monocytes # (Auto) 0.44, Eosinophils # (Auto) 0.28, Basophils # (Auto) 0.02 02/07/17 06:39 Test 02/07/17 06:39 White Blood Count 6.81 K/uL (4.8-10.8) Red Blood Count 3.71 M/uL (4.2-5.4) Hemoglobin 12.1 g/dL (12.0-16.0) Hematocrit 35.8 % (37-47) Mean Corpuscular Volume 96.5 fL (80-100) Mean Corpuscular Hemoglobin 32.6 pg (25-34) Mean Corpuscular Hemoglobin Concent 33.8 g/dl (32-36) Platelet Count 209 K/uL (130-400) Mean Platelet Volume 9.1 fL (7.4-10.4) Neutrophils (%) (Auto) 55.4 % Lymphocytes (%) (Auto) 33.6 % Monocytes (%) (Auto) 6.5 % Eosinophils (%) (Auto) 4.1 % Basophils (%) (Auto) 0.3 % Neutrophils # (Auto) 3.77 K/uL (1.4-6.5) Lymphocytes # (Auto) 2.29 K/uL (1.2-3.4) Monocytes # (Auto) 0.44 K/uL (0.11-0.59) Eosinophils # (Auto) 0.28 K/uL (0-0.5) Basophils # (Auto) 0.02 K/uL (0-0.2) RDW Standard Deviation 41.8 fL (36.4-46.3) RDW Coefficient of Variation 11.9 % (11.5-14.5) Immature Granulocyte % (Auto) 0.1 % Immature Granulocyte # (Auto) 0.01 K/uL (0.00-0.02) Anion Gap 6.0 mmol/L (3-11) Est Creatinine Clear Calc Drug Dose 48.4 ml/min Estimated GFR () 63.7 Estimated GFR (Non- 55.0 BUN/Creatinine Ratio 23.1 (10-20) Estimated Average Glucose 117 mg/dl Hemoglobin A1c 5.7 % (4.5-5.6) Calcium Level 8.5 mg/dl (8.5-10.1) Triglycerides Level 154 mg/dl (0-150) Cholesterol Level 126 mg/dl (0-200) HDL Cholesterol 41 mg/dl LDL Cholesterol, Calculated 54 mg/dl VLDL Cholesterol, Calculated 31 mg/dl Cholesterol/HDL Ratio 3.1 Vitamin B12 Level 226 pg/mL (211-911) MR ANGIOGRAM OF THE NECK COMBO CLINICAL HISTORY: Visual disturbances. Clinical concern for stroke. COMPARISON STUDY: Carotid artery ultrasound dated 11/07/2016. TECHNIQUE: Axial 2-D [id number] MR angiography of the neck is performed. Subsequently, following the IV administration of 20 cc of Magnevist coronal MR angiogram of the neck was performed to corroborate the findings. 3-D reformats are created and assessed. All measurements were calculated based on NASCET criteria. Subtraction imaging was utilized. FINDINGS: Visualized portions of the thoracic aorta are normal in caliber. The aortic arch demonstrates bovine variant anatomy. The subclavian arteries are widely patent bilaterally. The right common carotid artery is widely patent, as are the right internal and external carotid arteries. The left common carotid artery is widely patent, as are the left internal and external carotid arteries. The vertebral arteries are widely patent and codominant. The partially imaged intracranial vessels are normal in appearance. IMPRESSION: Unremarkable MR angiogram of the neck. MR ANGIOGRAM OF THE BRAIN CLINICAL HISTORY: Strokelike symptoms. COMPARISON STUDY: CT of the brain dated 02/06/2017. TECHNIQUE: 3-D [id number] MR angiography of the intracranial circulation is performed. 3-D tumble views are created and assessed. IV contrast was not administered for this examination. The examination is degraded by motion artifact. FINDINGS: There is origin of the right posterior cerebral artery. Atherosclerotic irregularity is noted in the cavernous carotid arteries bilaterally. Atherosclerotic irregularity is also seen throughout the middle cerebral arteries. The internal carotid arteries are patent bilaterally, as are the anterior and middle cerebral arteries. The vertebrobasilar system and posterior cerebral arteries are widely patent. The vertebral arteries are codominant. There is no aneurysm, high-grade stenosis, or focal vessel cutoff seen throughout the intracranial circulation. A chronic lacunar infarct is again seen in the left bernadette. IMPRESSION: Unremarkable MR angiogram of the brain noting a motion degraded examination. Electronically signed by: Loki Jenkins M.D. 02/06/2017 5:54 PM Dictated Date/Time: 02/06/2017 5:51 PM [~ rep ct add3]] MRI OF THE BRAIN COMBO CLINICAL HISTORY: Visual disturbances. Clinical concern for stroke. COMPARISON STUDY: CT of the brain dated 02/06/2017. TECHNIQUE: MRI of the brain was performed utilizing various T1 and T2-weighted sequences in the axial, sagittal, and coronal planes. Contrast-enhanced sequences were acquired following the administration of 9 cc of Gadavist. FINDINGS: Brain parenchyma: There are age-related involutional changes noting mild to moderate patchy subcortical and periventricular microangiopathic disease. Chronic lacunar infarcts are identified in the left bernadette, the right caudate head, and the right basal ganglia. There is no hemorrhage or mass effect. There is no restricted diffusion to suggest acute ischemia. No enhancing mass lesion is identified on the postcontrast images. Grijalva-white matter differentiation is preserved. No extra-axial fluid collection is seen. The cerebellar tonsils are normal in configuration. Ventricles, sulci, and cisterns: Normal in configuration. Pituitary and sella: Partially of the sella is incidentally noted. Intracranial vasculature: Normal flow voids are maintained at the skull base. Orbits: The bony orbits are grossly intact. Orbital contents are normal in appearance. Sinuses and mastoids: Trace mucosal thickening seen within the right maxillary antrum. The remaining paranasal sinuses are clear. The mastoid air cells are well pneumatized. Calvarium: Unremarkable. Cervical cord: Partially visualized cervical spinal cord is normal in morphology and signal intensity. IMPRESSION: No acute intracranial abnormality. Electronically signed by: Loki Jenkins M.D. 02/06/2017 7:14 PM Dictated Date/Time: 02/06/2017 7:10 PM Assessment and Plan 76-year-old female with past medical history of a stroke in October 2016 with residual right-sided weakness , hypertension, hyperlipidemia, GERD, spinal chordoma status post resection presented to the ER with complaints of visual disturbance after she woke up yesterday which lasted for about a minute. She has been admitted for TIA workup. TIA - Head CT: Negative - MRI brain, MRA head/neck unremarkable - Echo from October 2016 normal - Speech eval done - PT/ OT -Lipid panel WNL, TG at 154 -Hemoglobin A1c at 5.7 -Neurology consult: Considering recent stroke in Oct 2016 and TIA symptoms - Continue aspirin, statin Hypertension: -Home meds currently held Hyperlipidemia: - Continue statin Depression: - Patient states that she has been using Effexor every other day and trying to wean. Stop Effexor DVT prophylaxis : Heparin subcutaneous Full code Disposition :monitor in telemetry. Resident Physician Supervision Note: I was present with Dr. Mason during the history and exam. I discussed the case with the resident and agree with the findings and plan as documented in the note. Any exceptions or clarifications are listed here: During our joint visit and exam with the patient today, she described feeling "not right." When asked to further clarify, she describes a mental fog. Her complaints, other than the vision disturbance of yesterday, and exam today, are non-focal. 1) Discussed addition of Plavix to her ASA, but will defer to neurology 2) Consult neurology 3) Discontinue Effexor; she had been taking this every other day for the last six months in effort to taper. Effexor can be problematic in terms of blood pressure. Should she need something for anxiety/depression, could consider SSRI instead of SNRI in the future. Documented By: Thomas Jesus Resident Tracking Resident Involvement: Resident Care Provided Care Provided: Adult Hospital Medicine
[2017-02-08 03:32] VITALS: BP 133/77; PULSE 75; TEMP 36.8; O2SAT 94
[2017-02-08] MEDS: SODIUM CHLORIDE 0.9% 1000ML 1,000 ML IV SCH (05:23)
[2017-02-08] MEDS: HEPARIN SOD 5000 UNIT/0.5 ML CARP SQ SCH ×2 (05:24→13:43)
[2017-02-08 07:00] VITALS: BP 182/81; PULSE 65; TEMP 36.4; O2SAT 95
[2017-02-08 07:08] LABS: BASO % 0.1 %; BASO ABS # 0.01 K/uL (0-0.2); COMPLETE YES; EOS % 3.9 %; HEMATOCRIT 35.9 % (37-47); IG% 0.3 %; LYMPH % 29.5 %; LYMPH ABS # 2.03 K/uL (1.2-3.4); MEAN CELL VOLUME 95.5 fL (80-100); MEAN CORPUSCULAR HEMOGLOBIN 32.2 pg (25-34); MEAN CORPUSCULAR HGB CONC 33.7 g/dl (32-36); MEAN PLATELET VOLUME 9.3 fL (7.4-10.4); MONO % 7.7 %; NEUT % 58.5 %; PLATELET COUNT 222 K/uL (130-400); RED BLOOD COUNT 3.76 M/uL (4.2-5.4); WHITE BLOOD COUNT 6.89 K/uL (4.8-10.8)
[2017-02-08 07:45] LABS: BUN/CREATININE RATIO 23.9 (10-20); CALCIUM 8.2 mg/dl (8.5-10.1); CREATININE 0.8 mg/dl (0.60-1.20); POTASSIUM 4.2 mmol/L (3.5-5.1)
[2017-02-08 08:05] VITALS: BP 182/81; PULSE 65; TEMP 36.4; O2SAT 95
[2017-02-08] MEDS: PANTOprazole SOD 40 MG TAB PO SCH (08:33)
[2017-02-08] MEDS: FoLIC ACID TAB 400 MCG TAB PO SCH (08:33)
[2017-02-08] MEDS: ASPIRIN 81 MG ECTAB PO SCH (08:33)
[2017-02-08] MEDS: ATORVASTATIN 40 MG TAB PO SCH (08:33)
--- NOTE | 2017-02-08 09:29 | Neurology Consultation ---
Neurology Consultation Date of Consultation: Feb 08, 2017. Attending Physician: Thomas Jesus D.O. Primary Care Physician: Airam Sanchez M.D. Reason for Consultation: Concern for possible TIA History of Present Illness Source: patient, hospital records This is a 76-year-old right-handed female who presented with visual disturbance. Patient has a significant history for having a pontine stroke in October. Since neurology was not consult did during that admission, I reviewed her stroke workup. MRI in October reported images reviewed by myself showed small acute left pontine stroke. Patient reports at that time she was having dizziness/vertigo symptoms with right-sided weakness. She reports that she did outpatient physical therapy and weakness is improved but she still has some mild residual right lower extremity weakness. Ultrasound of the carotids were unremarkable in October. Echocardiogram in October showed some mild LV hypertrophy but no signs for cardioembolic source. Patient was placed on aspirin 81 mg daily and a statin medication at the time. She reports that on Monday she was feeling little bit slowly. Monday she felt great. On Monday she sat up from bed and felt like the window in her bedroom looked foggy and then suddenly seemed to get near to her. When she was walking down the hallway she also felt like the hallway looked distorted causing her to lift her feet up higher to make sure that she did not trip. It does not sound like her gait or walking itself changed it was more her response to the visual distortion. She denies any double vision. Denies any loss of vision. She did go to the emergency room for evaluation after resolved. Seemed to only last for a few minutes. She reports that recently her blood pressure at home has been okay , but her blood pressure was not taken at the time of this event. She does report that she had a severe thumping headache at the time. She denies that she typically gets headaches. Patient reports that she is at her neurological baseline this morning. MRI of the brain this admission reported images reviewed by myself. There was no acute strokes. There was noted old previous left pontine, right caudate, and right basal ganglia ischemic strokes. MRA of the head and neck were was reviewed and normal. There is no critical stenosis or major atherosclerotic disease. Labs were reviewed. Total cholesterol 126, LDL 54, HDL 41, triglycerides 154, hematoma and A1c 5.7. 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 No reported strokes in the family Social History Patient is normally independent in her activities of daily living. No tobacco. Alcohol Use: none Drug Use: none Marital Status: (2 kids ) Housing Status: lives with significant other Occupation Status: retired ([employer]) Allergies Coded Allergies: Ampicillin (Verified Allergy, Intermediate, RASH, 11/07/16) Celecoxib (Verified Allergy, Intermediate, hives, 11/07/16) tolerates aspirin Oxycodone (Verified Allergy, Intermediate, n/v, hives, 11/07/16) Hydrocodone (Verified Adverse Reaction, Mild, hallucinations, 11/07/16) Current Inpatient Medications Current Inpatient Medications Medications (Trade) Dose Ordered Sig/Manuel Route Start Time Stop Time Status Last Admin Dose Admin Miscellaneous Information 1 ea 1 ea UD PRN N/A 02/06/17 12:30 03/08/17 12:29 Sodium Chloride (Nss 1000ml) 1,000 ml @ 100 mls/hr Q10H IV 02/06/17 12:18 03/08/17 12:17 02/08/17 05:23 100 MLS/HR Heparin Sodium (Porcine) (Heparin Sq 5000 Unit/0.5ml) 5,000 unit Q8 SQ 02/06/17 14:00 03/08/17 13:59 02/08/17 05:24 5,000 UNIT Acetaminophen (Tylenol Tab) 650 mg Q4H PRN PO 02/06/17 12:30 03/08/17 12:29 02/07/17 21:30 650 MG Al Hydrox/Mg Hydrox/Simethicone (Maalox Max Susp) 15 ml Q4H PRN PO 02/06/17 12:30 03/08/17 12:29 Magnesium Hydroxide (Milk Of Magnesia Susp) 30 ml Q12H PRN PO 02/06/17 12:30 03/08/17 12:29 Ondansetron HCl (Zofran Inj) 4 mg Q6H PRN IV 02/06/17 12:30 03/08/17 12:29 Nitroglycerin (Nitrostat Tab) 0.4 mg UD PRN SL 02/06/17 12:30 03/08/17 12:29 Polyethylene (Miralax Powder Packet) 17 gm DAILY PRN PO 02/06/17 12:30 03/08/17 12:29 02/08/17 08:35 17 GM Aspirin (Ecotrin Tab) 81 mg QAM PO 02/07/17 09:00 03/09/17 08:59 02/08/17 08:33 81 MG Atorvastatin Calcium (Lipitor Tab) 40 mg QAM PO 02/07/17 09:00 03/09/17 08:59 02/08/17 08:33 40 MG Folic Acid (Folvite Tab) 800 mcg DAILY PO 02/07/17 09:00 03/09/17 08:59 02/08/17 08:33 800 MCG Pantoprazole Sodium (Protonix Tab) 40 mg QAM PO 02/07/17 09:00 03/09/17 08:59 02/08/17 08:33 40 MG Gadobutrol (Gadavist) 9 mmol UD PRN IV 02/06/17 18:00 02/10/17 17:59 Review of Systems Complete review of systems otherwise negative except for the above noted in history of present illness Physical Exam Vital Signs (Past 24 Hrs): Date Time Temp Pulse Resp B/P Pulse Ox O2 Delivery O2 Flow Rate FiO2 02/08/17 08:05 36.4 65 18 182/81 95 02/08/17 08:00 Room Air 02/08/17 04:00 Room Air 02/08/17 03:32 36.8 75 18 133/77 94 Room Air 02/08/17 00:00 Room Air 02/07/17 23:59 36.9 66 17 163/85 97 Room Air 02/07/17 20:03 36.6 64 20 156/76 96 Room Air 02/07/17 20:00 Room Air 02/07/17 16:00 91 Room Air 02/07/17 15:48 36.7 99 18 186/82 91 Room Air 02/07/17 12:00 Room Air 02/07/17 11:22 36.9 70 136/89 94 Room Air Gen.: Patient is alert and sitting in bed, in no acute distress. HEENT: Normocephalic /atraumatic, no scleral icterus Heart: Regular rate and rhythm Extremities: No gross deformities or rashes noted Neurological examination: Mental status: Patient is alert and oriented x3. Attention and concentration normal for the situation. Good fund of knowledge. Able to give her own history. Speech is fluent without any dysarthria or aphasia noted Cranial nerve: Visual escobar intact. Funduscopic examination was unremarkable. No papilledema. Pupils equally round and reactive to light. Extraocular muscles intact without nystagmus. No facial asymmetry noted. Facial sensation intact. Tongue is midline. Good palatal elevation. Good shoulder shrug bilaterally. Hearing grossly intact to voice. Strength: 5/5 both proximal and distally in all extremities with the exception of 4+/5 in right hip flexion. There is no arm drift. Tone is normal. Sensation: Grossly intact to light touch in all extremities. Deep tendon reflexes: +2 in bilateral biceps, brachioradialis and patellar. Toes were downgoing to plantar stimulation Coordination: Patient had good finger to nose without dysmetria Station within the bed was normal Laboratory Results Past 24 Hours: 02/08/17 06:36 Red Blood Count 3.76, Mean Corpuscular Volume 95.5, Mean Corpuscular Hemoglobin 32.2, Mean Corpuscular Hemoglobin Concent 33.7, Mean Platelet Volume 9.3, Neutrophils (%) (Auto) 58.5, Lymphocytes (%) (Auto) 29.5, Monocytes (%) (Auto) 7.7, Eosinophils (%) (Auto) 3.9, Basophils (%) (Auto) 0.1, Neutrophils # (Auto) 4.03, Lymphocytes # (Auto) 2.03, Monocytes # (Auto) 0.53, Eosinophils # (Auto) 0.27, Basophils # (Auto) 0.01 02/08/17 06:36 Test 02/08/17 06:36 White Blood Count 6.89 K/uL (4.8-10.8) Red Blood Count 3.76 M/uL (4.2-5.4) Hemoglobin 12.1 g/dL (12.0-16.0) Hematocrit 35.9 % (37-47) Mean Corpuscular Volume 95.5 fL (80-100) Mean Corpuscular Hemoglobin 32.2 pg (25-34) Mean Corpuscular Hemoglobin Concent 33.7 g/dl (32-36) Platelet Count 222 K/uL (130-400) Mean Platelet Volume 9.3 fL (7.4-10.4) Neutrophils (%) (Auto) 58.5 % Lymphocytes (%) (Auto) 29.5 % Monocytes (%) (Auto) 7.7 % Eosinophils (%) (Auto) 3.9 % Basophils (%) (Auto) 0.1 % Neutrophils # (Auto) 4.03 K/uL (1.4-6.5) Lymphocytes # (Auto) 2.03 K/uL (1.2-3.4) Monocytes # (Auto) 0.53 K/uL (0.11-0.59) Eosinophils # (Auto) 0.27 K/uL (0-0.5) Basophils # (Auto) 0.01 K/uL (0-0.2) RDW Standard Deviation 41.5 fL (36.4-46.3) RDW Coefficient of Variation 12.0 % (11.5-14.5) Immature Granulocyte % (Auto) 0.3 % Immature Granulocyte # (Auto) 0.02 K/uL (0.00-0.02) Anion Gap 7.0 mmol/L (3-11) Est Creatinine Clear Calc Drug Dose 59.9 ml/min Estimated GFR () 82.4 Estimated GFR (Non- 71.1 BUN/Creatinine Ratio 23.9 (10-20) Calcium Level 8.2 mg/dl (8.5-10.1) Imaging As noted above in history of present illness Impression This is a 76-year-old female with an acute left pontine stroke in October 2016 with residual mild right lower extremity weakness. No stroke risk factors include evidence of previous small strokes on MRI, hypertension, and dyslipidemia. Stroke etiology may be secondary to small vessel ischemic disease , but cannot rule out small embolic source. Current presenting symptoms of visual distortion without visual loss or diplopia is somewhat nonspecific, considering she did not report any new focal numbness, weakness, or changes in speech or gait. Patient did have an associated headache at the time which could've contributed to visual distortion. In addition uncontrolled hypertension could also be attributed to headache and nonspecific visual distortion. I do not think that the patient's new presenting symptoms clearly represent a TIA, although I cannot 100% rule out an ischemic etiology. Patient also has B12 deficiency. This could contribute to her complaints of generalized fatigue over the last month. Plan Continue aspirin 81 mg daily and statin for secondary stroke prevention. To complete the patient's stroke workup, would recommend a Holter monitor as an outpatient to rule out paroxysmal A. fib (as this would change her medical management if she did have paroxysmal A. fib). Follow-up with primary care physician as an outpatient for B12 replacement. Recommend B12 injections with a goal B12 level above 400. Follow-up PT/OT therapies for discharge planning. Avoid hypotension and dehydration Stroke risk factor modifications and recommendations: Blood pressure recommendations 130/80-110/70 Total cholesterol goal 100- 200 and LDL goal less than 100 (at goal) Hemoglobin A1c goal less than 7 (at goal) Encourage cardiovascular exercise at least 3 times a week for 30 minutes. May follow-up in neurology clinic in 1 month for stroke follow-up. I reviewed stroke signs and symptoms with the patient and instructed her that if she ever has any new setting strokelike symptoms to go to the emergency room for evaluation. Also warned her that if she is under stress or fatigue, some of her old stroke symptoms could return, and this does not necessarily represent a new stroke. Thank you for allowing me to participate in this patient's care. If there is any questions or concerns, feel free to call/page me.
[2017-02-08 11:10] VITALS: BP 162/74; PULSE 68; TEMP 36.9; O2SAT 94
--- NOTE | 2017-02-08 12:10 | Discharge Instructions ---
Discharge Instructions Date of Service Feb 08, 2017. Admission Reason for Admission: TIA Discharge Discharge Diagnosis / Problem: TIA Discharge Goals Goal(s): Decrease discomfort, Improve function, Increase independence Activity Recommendations Activity Limitations: resume your previous activity . Instructions / Follow-Up Instructions / Follow-Up You were admitted for symptoms which were concerning for TIA/transient ischemic attack or a mini stroke. Your CT and MRI reports were normal TIA - Continue aspirin 81 mg daily and statin for secondary stroke prevention. - Stroke risk factor modifications and recommendations: Blood pressure recommendations 130/80-110/70 Total cholesterol goal 100- 200 and LDL goal less than 100 (at goal) Hemoglobin A1c goal less than 7 (at goal) Encourage cardiovascular exercise at least 3 times a week for 30 minutes. Avoid hypotension and dehydration Hypertension: - continue triamterene/HCTZ as prescribed Vitamin B12 def: - Please follow up with your PCP for B12 injections. Depression: STOP using Effexor. since you were weaning off it it, you can stop it . if you feel your symptoms return , please follow up with Your PCP If she ever you have any new setting strokelike symptoms , please to go to the emergency room for evaluation. Follow up with your PCP in 2-3 days Current Hospital Diet Patient's current hospital diet: AHA Diet (Heart Healthy) Discharge Diet Recommended Diet: AHA Diet (Heart Healthy) Procedures Procedures Performed: CT Head, MRI brain, MRA head and neck Pending Studies Studies pending at discharge: no Laboratory Results Hemoglobin A1c Test 02/07/17 06:39 Range/Units Estimated Average Glucose 117 mg/dl Hemoglobin A1c 5.7 H 4.5-5.6 % Lipid Panel Test 02/07/17 06:39 Range/Units Triglycerides Level 154 H 0-150 mg/dl Cholesterol Level 126 0-200 mg/dl HDL Cholesterol 41 mg/dl Cholesterol/HDL Ratio 3.1 LDL Cholesterol, Calculated 54 mg/dl MRI OF THE BRAIN COMBO CLINICAL HISTORY: Visual disturbances. Clinical concern for stroke. COMPARISON STUDY: CT of the brain dated 02/06/2017. TECHNIQUE: MRI of the brain was performed utilizing various T1 and T2-weighted sequences in the axial, sagittal, and coronal planes. Contrast-enhanced sequences were acquired following the administration of 9 cc of Gadavist. FINDINGS: Brain parenchyma: There are age-related involutional changes noting mild to moderate patchy subcortical and periventricular microangiopathic disease. Chronic lacunar infarcts are identified in the left bernadette, the right caudate head, and the right basal ganglia. There is no hemorrhage or mass effect. There is no restricted diffusion to suggest acute ischemia. No enhancing mass lesion is identified on the postcontrast images. Grijalva-white matter differentiation is preserved. No extra-axial fluid collection is seen. The cerebellar tonsils are normal in configuration. Ventricles, sulci, and cisterns: Normal in configuration. Pituitary and sella: Partially of the sella is incidentally noted. Intracranial vasculature: Normal flow voids are maintained at the skull base. Orbits: The bony orbits are grossly intact. Orbital contents are normal in appearance. Sinuses and mastoids: Trace mucosal thickening seen within the right maxillary antrum. The remaining paranasal sinuses are clear. The mastoid air cells are well pneumatized. Calvarium: Unremarkable. Cervical cord: Partially visualized cervical spinal cord is normal in morphology and signal intensity. IMPRESSION: No acute intracranial abnormality. Electronically signed by: Loki Jenkins M.D. 02/06/2017 7:14 PM Dictated Date/Time: 02/06/2017 7:10 PM Medical Emergencies . Who to Call and When: Medical Emergencies: If at any time you feel your situation is an emergency, please call 911 immediately. . Non-Emergent Contact Non-Emergency issues call your: Primary Care Provider . . "Provider Documentation" section prepared by Raquel Mason. . VTE Core Measure Inpt VTE Proph given/why not?: Unfractionated heparin SQ Resident Tracking Resident Involvement: Resident Care Provided Care Provided: Adult Hospital Medicine
--- NOTE | 2017-02-08 12:22 | Discharge Summary ---
Discharge Summary Date of Service Feb 08, 2017. (Raquel Mason MD) Discharge Summary Admission Date: Feb 06, 2017 at 12:24 Discharge Date: Feb 08, 2017 Discharge Disposition: Home Principal Diagnosis: Stroke like symptoms Consultations: Neurology (Raquel Mason MD) Medication Reconciliation Continued Medications: Aspirin (Aspirin EC Low Dose) 81 Mg Ectab 81 MG PO QAM for 365 Days Atorvastatin (Atorvastatin Calcium) 40 Mg Tab 40 MG PO QAM, #90 TAB 6 Refills Doxycycline Hyclate (Vibramycin) 100 Mg Cap 100 MG PO UD takes for rosacea Folic Acid (Folic Acid) 400 Mcg Tab 800 MG PO DAILY Ibuprofen (Ibuprofen) 200 Mg Tab 800 MG PO UD Omeprazole (Prilosec) 40 Mg Cap 40 MG PO DAILY, #90 Triamterene/Hctz (Triamterene/Hctz 37.5-25MG) 1 Tab Tab 0.5 TAB PO DAILY, TAB Discontinued Medications: Venlafaxine Hcl (Effexor Extended Rel) 75 Mg Capcr 75 MG PO DAILY, #30 Discharge Exam Feels lot better today. States she no longer feels foggy today. Review of Systems: Constitutional: No chills, No fever Eyes: No worsening of vision ENT: No hearing loss Respiratory: No cough, No dyspnea on exertion, No shortness of breath Cardiovascular: No chest pain Abdomen: No nausea, No pain, No vomiting Musculoskeletal: No joint pain Genitourinary - Female: No dysuria, No urinary frequency Neurologic: No memory loss, No numbness/tingling, No paralysis Psychiatric: No depression symptoms Endocrine: No fatigue Hematologic / Lymphatic: No abnormal bleeding/bruising Physical Exam: General Appearance: WD/WN, no apparent distress Eyes: normal inspection ENT: normal ENT inspection, hearing grossly normal Neck: supple Respiratory/Chest: chest non-tender, lungs clear, normal breath sounds, no respiratory distress, no accessory muscle use Cardiovascular: regular rate, rhythm, no edema, no murmur Abdomen / GI: normal bowel sounds, non tender, soft Extremities: normal inspection, no pedal edema 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 She states that the window in her bedroom was "moving towards me." She had no blurry vision or visual field cuts. Denies dizziness or lightheadedness or vertigo. Denies balance issues today. However, on Monday afternoon, she felt unsteady on her feet on Monday. Monday had no neurological symptoms. Developed frontal headache right after her symptoms started. The visual disturbance lasted <1 minute. She got up from the bed and started walking into the hallway and felt "like the floor was higher than it was." No weakness in arms/legs. No dysphagia or dysarthria/aphasia today. The moving visual disturbance has resolved but now she has blurry vision. The walking/gait issue is now better now as well. Still has "slight" headache. No paresthesias. Has residual right-sided weakness from her stroke in October (leg and arm). TIA - Head CT: Negative - MRI brain, MRA head/neck unremarkable - Echo from October 2016 normal - Speech eval done - PT/ OT - Lipid panel WNL, TG at 154 - Hemoglobin A1c at 5.7 - Neurology consult: Neurology recommendations: - Continue aspirin 81 mg daily and statin for secondary stroke prevention. - To complete the patient's stroke workup, would recommend a Holter monitor as an outpatient to rule out paroxysmal A. fib (as this would change her medical management if she did have paroxysmal A. fib). - Avoid hypotension and dehydration - Stroke risk factor modifications and recommendations: Blood pressure recommendations 130/80-110/70 Total cholesterol goal 100- 200 and LDL goal less than 100 (at goal) Hemoglobin A1c goal less than 7 (at goal) Encourage cardiovascular exercise at least 3 times a week for 30 minutes. Vitamin B12 def: Vitamin B12 level at 226 - was given 1000 mcg B12 injection prior to dc - Follow-up with primary care physician as an outpatient for B12 replacement. Recommend B12 injections with a goal B12 level above 400. Hypertension: - Were initially held for permissive HTN - Continue Triamterene/HCTZ Hyperlipidemia: - Continue statin Depression: - Patient states that she has been using Effexor every other day and trying to wean. - STOP Effexor - Recommended to Follow up with PCP if depression symptoms continue May follow-up in neurology clinic in 1 month for stroke follow-up. Follow-up with PCP in 2-3 days Total Time Spent: Greater than 30 minutes This includes examination of the patient, discharge planning, medication reconciliation, and communication with other providers. (Raquel Mason MD) Resident Physician Supervision Note: I was present with Dr. Mason during the history and exam. I discussed the case with the resident and agree with the findings and plan as documented in the note. Any exceptions or clarifications are listed here: Documented By: Thomas Jesus (Thomas Jesus,D.O.) Discharge Instructions Please refer to the electronic Patient Visit Report (Discharge Instructions) for additional information. (Raquel Mason MD) Follow-Up with PCP in about 2-3 days May follow up with neurology clinic in about a month (Raquel Mason MD) Additional Copies To Airam Sanchez M.D. Resident Tracking Resident Involvement: Resident Care Provided Care Provided: Adult [facility] (Raquel Mason MD)
[2017-02-08] MEDS ORDERED: CYANOCOBALAMIN 1000 MCG/ML VIAL IM ONE (12:30)
--- NOTE | 2017-02-08 13:52 | Pharmacy Progress Note ---
Pharmacist Stroke Counseling Date of Service Feb 08, 2017. Scope Pharmacy has been consulted to provide medication discharge counseling for this patient admitted with possible transient ischemic attack as per the Pharmacist Discharge Counseling for Stroke Patients Protocol. Medications on Discharge Continued Medications: Aspirin (Aspirin EC Low Dose) 81 Mg Ectab 81 MG PO QAM for 365 Days Atorvastatin (Atorvastatin Calcium) 40 Mg Tab 40 MG PO QAM, #90 TAB 6 Refills Doxycycline Hyclate (Vibramycin) 100 Mg Cap 100 MG PO UD takes for rosacea Folic Acid (Folic Acid) 400 Mcg Tab 800 MG PO DAILY Ibuprofen (Ibuprofen) 200 Mg Tab 800 MG PO UD Omeprazole (Prilosec) 40 Mg Cap 40 MG PO DAILY, #90 Triamterene/Hctz (Triamterene/Hctz 37.5-25MG) 1 Tab Tab 0.5 TAB PO DAILY, TAB Discontinued Medications: Venlafaxine Hcl (Effexor Extended Rel) 75 Mg Capcr 75 MG PO DAILY, #30 Ms Armas has been taking the same medications for some time. She has been tapering off Effexor due to concern about her blood pressure. Action The above medications, specifically ones for stroke treatment/prophylaxis, have been reviewed in detail with the patient and/or patient medical office representative(s) prior to discharge. This includes indication, common adverse reactions, drug interactions, and medication administration. Medication counseling has been employed using the teach-back method to ensure understanding. Outcome The patient has demonstrated understanding of the medications. Please note, they are aware that the pharmacist will call them within 72 hours post-discharge to confirm that the appropriate medications are being taken and answer any further medication related questions the patient might have at that time. Contact information Individual to be contacted: Wayne Armas (Svetlana) Relationship to patient self Phone number: [phone] Best time to call: anytime Thank you for allowing pharmacy to be involved in the care of this patient. Please call [phone] or [phone] with any additional questions
--- NOTE | 2017-02-10 12:48 | Pharmacy Progress Note ---
Pharmacist Post D/C Phone Note Medications Dose Route/Sig Max Daily Dose Days Date Category Dose Instructions Aspirin EC Low Dose (Aspirin) 81 Mg Ectab 81 Mg PO QAM 365 11/09/16 Rx Atorvastatin Calcium (Atorvastatin) 40 Mg Tab 40 Mg PO QAM 11/09/16 Rx Vibramycin (Doxycycline Hyclate) 100 Mg Cap 100 Mg PO UD 11/07/16 Reported takes for rosacea Prilosec (Omeprazole) 40 Mg Cap 40 Mg PO DAILY 11/07/16 Reported Folic Acid 400 Mcg Tab 800 Mg PO DAILY 11/07/16 Reported Ibuprofen 200 Mg Tab 800 Mg PO UD 11/07/16 Reported Triamterene/Hctz 37.5-25MG (Triamterene/HCTZ) 1 Tab Tab 0.5 Tab PO DAILY 11/07/16 Reported Date of phone call: Feb 10, 2017. Individual with whom pharmacist spoke to: patient, Ms Armas The following questions were reviewed during the phone call with responses listed below each: Can you tell me the medications that you are currently taking as well as when and how you take each medication? - reviewed medication list, accurate When have you missed any doses of your medications? - no What side effects are you having from your medications? - denies bruising/bleeding, muscle pain. Is having hot flashes which is most likely from the Effexor stopping; I recommended talking to her PCP so they could perhaps resume at a lower dose What questions do you have about your medications? - none What problems are you having obtaining your medications? - none When is your next appointment with your primary care doctor? - Monday Additional comments: - patient was very pleasant and knowledgable about her medications. I enjoyed speaking with her immensely. As per the Pharmacist Discharge Counseling for Stroke Patients Protocol, this phone call has been completed within 72 hours of discharge. Thank you for allowing us to be involved in the care of this patient.
== END 2017-02-08 14:26 | disposition home or self-care (01) | DRG 92 ==
LOC: ENRESERVTM → ENRESERVDT → C.EDB 09:02 → C.2T 12:24
PROVIDERS: ADMIT Internal Medicine; ATTEND Family Medicine
DX: R29.818 Other symptoms and signs involving the nervous system (principal); I69.351 Hemiplegia and hemiparesis following cerebral infarction affecting right dominant side; R51 Headache; H53.8 Other visual disturbances; E53.8 Deficiency of other specified B group vitamins; E78.5 Hyperlipidemia, unspecified; F32.9 Major depressive disorder, single episode, unspecified; I12.9 Hypertensive chronic kidney disease with stage 1 through stage 4 chronic kidney disease, or unspecified chronic kidney disease; N18.2 Chronic kidney disease, stage 2 (mild); K21.9 Gastro-esophageal reflux disease without esophagitis; E66.9 Obesity, unspecified; Z51.81 Encounter for therapeutic drug level monitoring; Z79.899 Other long term (current) drug therapy; Z79.82 Long term (current) use of aspirin; Z87.11 Personal history of peptic ulcer disease; Z68.37 Body mass index [BMI] 37.0-37.9, adult; Z82.49 Family history of ischemic heart disease and other diseases of the circulatory system; Z84.89 Family history of other specified conditions

== ENCOUNTER → 2017-03-07 | Outpatient (CLI) | payer OTHER, BC ==
[~2017-03-07] MED LIST changes: -EFFSR75 PO; -SCPTP TD
[2017-03-07 13:57] LABS: BASO % 0.5 %; BASO ABS # 0.03 K/uL (0-0.2); COMPLETE YES; EOS % 2.1 %; HEMATOCRIT 38.5 % (37-47); IG% 0.2 %; LYMPH % 30.1 %; LYMPH ABS # 1.86 K/uL (1.2-3.4); MEAN CELL VOLUME 94.8 fL (80-100); MEAN CORPUSCULAR HEMOGLOBIN 31.8 pg (25-34); MEAN CORPUSCULAR HGB CONC 33.5 g/dl (32-36); MEAN PLATELET VOLUME 9.3 fL (7.4-10.4); MONO % 7.1 %; PLATELET COUNT 249 K/uL (130-400); RED BLOOD COUNT 4.06 M/uL (4.2-5.4); WHITE BLOOD COUNT 6.18 K/uL (4.8-10.8)
[2017-03-07 15:07] LABS: ALT/SGPT 36 U/L (12-78); AST/SGOT 24 U/L (15-37); BLOOD UREA NITROGEN 26 mg/dl (7-18); BUN/CREATININE RATIO 26.2 (10-20); CALCIUM 8.8 mg/dl (8.5-10.1); CARBON DIOXIDE 23 mmol/L (21-32); CHLORIDE 111 mmol/L (98-107); CHOLESTEROL 134 mg/dl (0-200); GLUCOSE 104 mg/dl (70-99); POTASSIUM 4.1 mmol/L (3.5-5.1); SODIUM 144 mmol/L (136-145); TRIGLYCERIDES 125 mg/dl (0-150); VERY LOW DENSITY LIPOPROT CALC 25 mg/dl
[2017-03-07 15:17] LABS: ALB/GLOB RATIO 1.5 (0.9-2); ALKALINE PHOSPHATASE 52 U/L (45-117); CHOLESTEROL/HDL RATIO 2.5; HDL CHOLESTEROL 54 mg/dl; LDL CHOLESTEROL CALCULATED 55 mg/dl
== END | disposition home or self-care (01) ==
LOC: C.LABMFLN 11:05
PROVIDERS: ATTEND Family Medicine
DX: I10 Essential (primary) hypertension (principal); E78.5 Hyperlipidemia, unspecified

== ENCOUNTER → 2017-07-19 | Outpatient (CLI) | payer OTHER, BC ==
[2017-07-19 13:25] LABS: BLOOD UREA NITROGEN 24 mg/dl (7-18)
== END ==
LOC: C.LABMFLN 08:41
PROVIDERS: ATTEND Radiology Radiation Oncology
DX: Z01.812 Encounter for preprocedural laboratory examination (principal)

== ENCOUNTER → 2017-10-05 | Outpatient (CLI) | payer OTHER, BC ==
[2017-10-05 18:07] LABS: BLOOD UREA NITROGEN 25 mg/dl (7-18); BUN/CREATININE RATIO 20.1 (10-20); CALCIUM 8.9 mg/dl (8.5-10.1); CARBON DIOXIDE 28 mmol/L (21-32); CHLORIDE 106 mmol/L (98-107); CREATININE 1.26 mg/dl (0.60-1.20); GLUCOSE 112 mg/dl (70-99); PHOSPHORUS 3.2 mg/dl (2.5-4.9); SODIUM 139 mmol/L (136-145)
== END | disposition home or self-care (01) ==
LOC: C.LABMFLN 14:12
PROVIDERS: ATTEND Family Medicine
DX: N18.3 Chronic kidney disease, stage 3 (moderate) (principal)

== ENCOUNTER → 2017-12-08 | Outpatient (CLI) | payer OTHER, BC ==
[2017-12-08 17:57] LABS: BLOOD UREA NITROGEN 27 mg/dl (7-18); CALCIUM 9.3 mg/dl (8.5-10.1); CARBON DIOXIDE 27 mmol/L (21-32); CREATININE 1.21 mg/dl (0.60-1.20); GLUCOSE 145 mg/dl (70-99); PHOSPHORUS 3.5 mg/dl (2.5-4.9); POTASSIUM 3.9 mmol/L (3.5-5.1); SODIUM 139 mmol/L (136-145)
== END | disposition home or self-care (01) ==
LOC: C.LABMFLN 15:23
PROVIDERS: ATTEND Internal Medicine Nephrology
DX: N18.3 Chronic kidney disease, stage 3 (moderate) (principal)

== ENCOUNTER → 2018-02-07 | Outpatient (CLI) | payer OTHER, BC ==
[~2018-02-07] MED LIST changes: -ASPEC81 PO; +ASPI-320 PO
[2018-02-07 13:30] LABS: BLOOD UREA NITROGEN 25 mg/dl (7-18)
== END | disposition home or self-care (01) ==
LOC: C.LABMFLN 09:24
PROVIDERS: ATTEND Radiology Radiation Oncology
DX: D48.1 Neoplasm of uncertain behavior of connective and other soft tissue (principal)

== ENCOUNTER → 2018-02-28 | Outpatient (CLI) | payer OTHER, BC ==
[2018-02-28 17:55] LABS: ALBUMIN 3.6 gm/dl (3.4-5.0); BLOOD UREA NITROGEN 21 mg/dl (7-18); CALCIUM 8.5 mg/dl (8.5-10.1); CARBON DIOXIDE 26 mmol/L (21-32); CREATININE 1.08 mg/dl (0.60-1.20); GLUCOSE 155 mg/dl (70-99); POTASSIUM 4.1 mmol/L (3.5-5.1); SODIUM 140 mmol/L (136-145)
== END | disposition home or self-care (01) ==
LOC: C.LABMFLN 11:16
PROVIDERS: ATTEND Family Medicine
DX: N18.3 Chronic kidney disease, stage 3 (moderate) (principal)

== ENCOUNTER 2022-01-12 05:02 | Observation (INO) ==
--- NOTE | 2022-01-07 13:46 | Anesthesiology Consultation ---
Date of Service January 07, 2022 The patient had URI/allergy symptoms that resolved with Carole. She will be evaluated on the day of the procedure by the anesthesiologist and is okay to proceed if she remains asymptomatic. Assessment & Plan (1) Encounter for pre-operative examination: Chart Review Chart Review: Acceptable Risk for Surgery (pending preop Covid testing results ) and Patient NOT seen in Pre Admission Testing - Check BSG AM DOS Per nursing assessment 01/07/2022, patient denies any recent travel. No known Covid infection in the past 90 days. Patient is fully vaccinated for Covid. No known Covid positive exposures or Covid related symptoms. Preop Covid testing scheduled 01/10/22= will await response Patient seen by PCP 01/05/2022 = patient seen for viral URI with cough. PCP feels URI is likely viral. Patient having Covid testing done on Monday prior to surgery. Recommend rest fluids and Delsym. Carole for secretions/drainage. Patient will follow up on Mondayif cough worsens consider antibiotics. (Spoke with patient via telephone 01/07/22- URI symptoms much improved with just three days of Carole- symptoms almost completely resolved- feels secondary to allergies- will call if symptoms return or do not fully resolve) History Surgery Operation Date: 01/12/22 11:15 Proposed Procedures p Right Reverse Total Shoulder Arthroplasty, Biceps Tenodesis - Scott Barone MD Height/Weight Height: 5 ft 1 in Weight: 81.647 kg Allergies Allergy/AdvReac Type Severity Reaction Status Date / Time ampicillin Allergy Intermediate RASH Verified 01/07/22 11:17 celecoxib Allergy Intermediate hives Verified 01/07/22 11:17 oxycodone Allergy Intermediate n/v, hives Verified 01/07/22 11:17 nitrofurantoin AdvReac Severe extreme Verified 01/07/22 11:17 fatigue and weakness atorvastatin AdvReac Intermediate Muscle Pain Verified 01/07/22 11:17 heparin AdvReac Intermediate Rash Verified 01/07/22 11:17 lisinopril AdvReac Intermediate Rash Verified 01/07/22 11:17 olmesartan [From Benicar] AdvReac Intermediate ELEVATED CK Verified 01/07/22 11:17 simvastatin [From Zocor] AdvReac Intermediate Muscle Pain Verified 01/07/22 11:17 Sulfa (Sulfonamide AdvReac Intermediate Unknown Verified 01/07/22 11:17 Antibiotics) hydrocodone AdvReac Mild hallucinati Verified 01/07/22 11:17 ons Medications Home Medications Medication Instructions Recorded Confirmed Last Taken aspirin 81 mg tablet,delayed 81 mg PO QAM tab 03/19/19 01/07/22 Unknown release biotin 5 mg tablet 5 mg PO QPM #30 tab 03/19/19 01/07/22 Unknown cyanocobalamin (vitamin B-12) 1,000 mcg PO QAM #100 tab 03/19/19 01/07/22 Unknown 1,000 mcg tablet zoledronic acid 5 mg/100 mL in See Rx Instructions IV .COMPLEX ml 03/19/19 01/07/22 Unknown mannitol 5 %-water intravenous piggybck (Reclast) nitroglycerin 0.4 mg sublingual 0.4 mg SL Q5M PRN #25 tab 04/22/19 01/07/22 Unknown tablet (Nitrostat) doxycycline hyclate 100 mg capsule 100 mg PO DAILY PRN cap 09/30/19 01/07/22 Unknown hydrocortisone 2.5 % topical cream 1 applic TOPICAL BID PRN #60 g 04/23/21 01/07/22 Unknown gabapentin 400 mg capsule 400 mg PO QID 06/17/21 01/07/22 Unknown mupirocin 2 % topical ointment 1 applic TOPICAL BID PRN 06/17/21 01/07/22 Unknown omeprazole 40 mg capsule,delayed 40 mg PO QAM 06/17/21 01/07/22 Unknown release pravastatin 20 mg tablet 20 mg PO QAM #90 tab 08/30/21 01/07/22 Unknown triamterene 37.5 0.5 tab PO QAM tab 08/30/21 01/07/22 Unknown mg-hydrochlorothiazide 25 mg tablet (Maxzide-25mg) metformin 500 mg tablet See Rx Instructions PO BID #270 tab 11/17/21 01/07/22 U nknown venlafaxine 75 mg capsule,extended 75 mg PO QAM #90 cap 11/17/21 01/07/22 Unknown release 24 hr cholecalciferol (vitamin D3) 25 25 mcg PO QAM 01/07/22 01/07/22 Unknown mcg (1,000 unit) capsule fexofenadine 180 mg tablet 180 mg PO QAM 01/07/22 01/07/22 Unknown (Carole Allergy) Past Medical History Medical History CKD (chronic kidney disease), stage III Diabetes Well controlled- Hgb A1C done 12/20/21 was 5.9 GERD (gastroesophageal reflux disease) Herniated intervertebral disc Lumbar area History of MRSA infection 2009 Hyperlipidemia Hypertension Idiopathic peripheral neuropathy 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 S/p sx + radiation Melanoma Hx Peptic ulcer disease Postmenopausal osteoporosis Rosacea Secondary hyperparathyroidism of renal origin Slow to wake up after anesthesia TIA (transient ischemic attack) 2017 Urge and stress incontinence Past Family History Family History Father Brain cancer Mother Coronary heart disease Heart disease Sister Breast cancer Colorectal cancer Slow to wake up after anesthesia Grandmother Diabetes Unknown Lung cancer Hypertension Son Cerebral aneurysm Denies family history of Ovarian cancer Prostate cancer Myocardial infarction Past Surgical History Surgical History H/O melanoma excision left upper arm History of appendectomy History of back surgery Resection sacral chordoma 2010 History of bilateral breast reduction surgery History of bladder surgery History of cataract surgery bilateral History of colonoscopy History of hysterectomy with bilateral oophorectomy History of knee replacement BILATERAL History of revision of total knee arthroplasty History of tonsillectomy and adenoidectomy Hx of cardiac catheterization no stents Hx of cholecystectomy S/P carpal tunnel release BILATERAL S/P hernia repair Social History Smoking Status: Never smoker Do You Dip or Chew Tobacco: No Hx Alcohol Use: Yes Alcohol type: wine alcohol intake frequency: holidays/special occasions only Hx Substance Use: No substance use type: does not use Lab Results Anesthesia Preop Results Results Anesthesia Widget: WBC 6.20 K/uL (4.8-10.8) 12/20/21 Hgb 12.3 g/dL (12.0-16.0) 12/20/21 Hct 37.3 % (37-47) 12/20/21 Plt 277 K/uL (130-400) 12/20/21 Na 139 mmol/L (136-145) 12/20/21 K 4.0 mmol/L (3.5-5.1) 12/20/21 Cl 105 mmol/L (98-107) 12/20/21 CO2 26 mmol/L (21-32) 12/20/21 BUN 30 mg/dl (6-23) H 12/20/21 Creat 1.13 mg/dl (0.6-1.2) 12/20/21 Glucose Level 199 mg/dl (70-99(Fasting)) H 12/20/21 PT 10.3 Seconds (9.0-12.0) 12/20/21 PTT 26.2 Seconds (21.0-31.0) 12/20/21 INR 1.0 (0.9-1.1) 12/20/21 HA1c 5.9 % (4.5-5.6) H 12/20/21 Urine Color Yellow 12/20/21 Urine Appearance Turbid (Clear) A 12/20/21 Urine pH 5.0 (4.5-7.5) 12/20/21 Urine Specific [place] 1.021 (1.000-1.030) 12/20/21 Urine Protein Negative (Negative) 12/20/21 Urine Glucose (UA) Negative (Negative) 12/20/21 Urine Ketones Negative (Negative) 12/20/21 Urine Blood Negative (Negative) 12/20/21 Urine Nitrite Positive (Negative) A 12/20/21 Urine Bilirubin Negative (Negative) 12/20/21 Urine Urobilinogen Negative (Negative) 12/20/21 Urine Leukocyte Esterase 2+ (Negative) H 12/20/21 Urine WBC (Auto) >30 /hpf (0-5) H 12/20/21 Urine RBC (Auto) 0-4 /hpf (0-4) 12/20/21 Urine Hyaline Casts (Auto) 1-5 /lpf (0-5) 12/20/21 Urine Epithelial Cells (Auto) 10-20 /lpf (0-5) H 12/20/21 Urine Bacteria (Auto) 4+ (Negative) H 12/20/21 Testing Laboratory Results 12/20/21= URINE CULTURE: Klebsiella pneumoniae (treated Cipro) Electrocardiogram Date: 06/18/21 Findings: + NSR @ (69 bpm) Normal EKG per cardio. Chest X-Ray Date: 06/18/21 Findings: + NAD and + cardiomegaly The heart is enlarged noting atherosclerotic calcification of the thoracic aorta. The pulmonary vasculature is noncongested. Chronic interstitial thickening is similar to previous. There is bibasilar scarring/atelectasis. No airspace consolidation or large pleural effusion is identified. There is no pneumothorax. Stress Test Date: 04/10/19 Type: DSE Resting EF: 56% Resting RWMA: + none Valvular Disease: no significant valvular disease Stress ECHO is negative for inducible ischemia. Stress EKG negative for ischemia. MPHR 100% Moderate cLVH. Grade I diastolic dysfunction.
--- NOTE | 2022-01-11 18:48 | History & Physical Report ---
Date of Service January 11, 2022 Assessment & Plan (1) Primary osteoarthritis, right shoulder: Plan: Treatment options discussed with patient. She has failed conservative measures. Surgical intervention recommended. Risks, benefits and alternatives to surgery including but not limited to infection, DVT, pain, stiffness, need for revision surgery, damage to blood vessels, damage to nerves, PE, , were discussed with the patient and they wish to proceed. Plan on right reverse total shoulder arthroplasty and biceps tenodesis at [facility] on 01/12/22. All questions answered. She will follow up post operatively. History of Present Illness Chief Complaint: Right shoulder pain Primary Care Provider: Airam Sanchez MD 81 year old female with PMHx significant for HTN, high cholesterol, DM2, GERD, CKD, and TIA who presents with ongoing right shoulder pain. She has endstage osteoarthritis right shoulder. She has failed conservative measures, including multiple injections. Pain interfering with her daily activities. Patient denies headaches, sweats, fevers, chills, double vision, blurred vision, cough, sore t hroat, dysphagia, chest pain, sob, wheezing, n/v/d/c, numbness, tingling, fatigue, urinary symptoms, mood disorders. ROS positive for right shoulder pain and stiffness. Allergies Allergy/AdvReac Type Severity Reaction Status Date / Time ampicillin Allergy Intermediate RASH Verified 01/12/22 05:48 celecoxib Allergy Intermediate hives Verified 01/12/22 05:48 oxycodone Allergy Intermediate n/v, hives Verified 01/12/22 05:48 nitrofurantoin AdvReac Severe extreme Verified 01/12/22 05:48 fatigue and weakness atorvastatin AdvReac Intermediate Muscle Pain Verified 01/12/22 05:48 heparin AdvReac Intermediate Rash Verified 01/12/22 05:48 lisinopril AdvReac Intermediate Rash Verified 01/12/22 05:48 olmesartan [From Benicar] AdvReac Intermediate ELEVATED CK Verified 01/12/22 05:48 simvastatin [From Zocor] AdvReac Intermediate Muscle Pain Verified 01/12/22 05:48 Sulfa (Sulfonamide AdvReac Intermediate Unknown Verified 01/12/22 05:48 Antibiotics) hydrocodone AdvReac Mild hallucinati Verified 01/12/22 05:48 ons Home Medications Medication Instructions Recorded Confirmed Type aspirin 81 mg tablet,delayed 81 mg PO QAM tab 03/19/19 01/12/22 History release biotin 5 mg tablet 5 mg PO QPM #30 tab 03/19/19 01/12/22 History cyanocobalamin (vitamin B-12) 1,000 mcg PO QAM #100 tab 03/19/19 01/12/22 History 1,000 mcg tablet zoledronic acid 5 mg/100 mL in See Rx Instructions IV .COMPLEX ml 03/19/19 History mannitol 5 %-water intravenous piggybck (Reclast) nitroglycerin 0.4 mg sublingual 0.4 mg SL Q5M PRN #25 tab 04/22/19 01/12/22 Rx tablet (Nitrostat) doxycycline hyclate 100 mg capsule 100 mg PO DAILY PRN cap 09/30/19 01/12/22 History hydrocortisone 2.5 % topical cream 1 applic TOPICAL BID PRN #60 g 04/23/21 01/12/22 Rx gabapentin 400 mg capsule 400 mg PO QID 06/17/21 01/12/22 History mupirocin 2 % topical ointment 1 applic TOPICAL BID PRN 06/17/21 01/12/22 History omeprazole 40 mg capsule,delayed 40 mg PO QAM 06/17/21 01/12/22 History release pravastatin 20 mg tablet 20 mg PO QAM #90 tab 08/30/21 01/12/22 Rx metformin 500 mg tablet See Rx Instructions PO BID #270 tab 11/17/21 01/12/22 Rx venlafaxine 75 mg capsule,extended 75 mg PO QAM #90 cap 11/17/21 01/12/22 Rx release 24 hr cholecalciferol (vitamin D3) 25 25 mcg PO QAM 01/07/22 01/12/22 History mcg (1,000 unit) capsule fexofenadine 180 mg tablet 180 mg PO QAM 01/07/22 01/12/22 History (Carole Allergy) triamterene 37.5 0.5 tab PO QAM 90 Days #45 tab 01/10/22 01/12/22 Rx mg-hydrochlorothiazide 25 mg tablet (Maxzide-25mg) Past Med/Surg History Medical History CKD (chronic kidney disease), stage III Diabetes Well controlled- Hgb A1C done 12/20/21 was 5.9 GERD (gastroesophageal reflux disease) Herniated intervertebral disc Lumbar area History of MRSA infection 2009 Hyperlipidemia Hypertension Idiopathic peripheral neuropathy 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 S/p sx + radiation Melanoma Hx Peptic ulcer disease Postmenopausal osteoporosis Rosacea Secondary hyperparathyroidism of renal origin Slow to wake up after anesthesia TIA (transient ischemic attack) 2017 Urge and stress incontinence Surgical History H/O melanoma excision left upper arm History of appendectomy History of back surgery Resection sacral chordoma 2010 History of bilateral breast reduction surgery History of bladder surgery History of cataract surgery bilateral History of colonoscopy History of hysterectomy with bilateral oophorectomy History of knee replacement BILATERAL History of revision of total knee arthroplasty History of tonsillectomy and adenoidectomy Hx of cardiac catheterization no stents Hx of cholecystectomy S/P carpal tunnel release BILATERAL S/P hernia repair Family History Father Brain cancer Mother Coronary heart disease Heart disease Sister Breast cancer Colorectal cancer Slow to wake up after anesthesia Grandmother Diabetes Unknown Lung cancer Hypertension Son Cerebral aneurysm Denies family history of Ovarian cancer Prostate cancer Myocardial infarction Social History Smoking Status: Never smoker Second Hand Exposure: No; Do You Dip or Chew Tobacco: No; Tobacco Cessation Education Requested by Patient: No Hx Alcohol Use: Yes Alcohol type: wine Hx Substance Use: No Preferred Language: Tamaz[place] Communication Ability: Effective Visual Impairment: Partially Limited Hearing Ability: Normal Upper Doubler Required: No Beliefs That Will Affect Care: None marital status: Current Living Situation: Spouse current occupational status: retired How many Children do You have: 2 Other Information That Helps Us Care for You: No Feels Safe at Home: Yes Safety Concerns: Feels Safe At This Time Childhood Exposure to Second-Hand Smoke: Yes Diet Comment: diabetic diet caffeine: Yes (1 cup coffee daily) during the past year weight has: remained stable Dental Care, Regularly: No Physical Activity Frequency: 1-2 Times per Week Physical Activity Frequency Comment: Moderate hop grower- cleaning, cooking, laundry Seatbelt Use: always Sunscreen Use: Yes Do you think of yourself as: straight/heterosexual Assistive Devices: Denture - Upper, Denture - Lower and Glasses Review of Systems All systems reviewed & are unremarkable except as noted in HPI & below Physical Exam Constitutional: well developed and well nourished; no acute distress Eyes: PERRL, conjunctivae normal, anicteric sclerae ENMT: external ear and nose normal, oropharynx normal Neck: trachea midline, no thyromegaly Respiratory: normal respiratory effort, lungs clear to auscultation Cardiovascular: RRR, no murmur, no edema Musculoskeletal: Right shoulder: Crepitation noted with ROM, active painful ROM. Diffuse tenderness. FF to 90 degrees, ER to 45 degrees actively. Strength 4+/5 in ER, 4/5 abduction, 5/5 IR. Skin: no rashes, warm and dry Neurologic: patellar DTR's 2+ bilat, sensation intact Psychiatric: A+Ox3, euthymic affect Results & Data ([facility]) Diagnostic Findings Right shoulder: X-rays of her right shoulder demonstrate she has advanced glenohumeral osteoarthritis with large inferior humeral osteophyte, type A glenoid erosion, bone on bone in the glenohumeral joint. She is bone on bone in the AC joint. Type I acromion. MRI demonstrates full thickness tear rotator cuff, subluxed and degenerative tearing biceps tendnon
[2022-01-12] MEDS ORDERED: VANCOMYCIN HCL 1,250 MG in SODIUM CHLORIDE 0.9% 250 ML IV SCH ×2 (06:00→20:15)
[2022-01-12] MEDS ORDERED: METOCLOPRAMIDE HCL 10 MG TABLET PO SCH (06:00)
[2022-01-12] MEDS ORDERED: TRANEXAMIC ACID 1,000 MG **IV Intra-op IV SCH (06:00)
[2022-01-12] MEDS ORDERED: LR 15ML/HR IV SCH (06:00)
[2022-01-12] MEDS ORDERED: ACETAMINOPHEN 500 MG TAB PO SCH (06:00)
[2022-01-12] MEDS ORDERED: FAMOTIDINE 20 MG TAB PO SCH (06:00)
[2022-01-12] MEDS ORDERED: GABAPENTIN 300 MG CAP PO SCH (06:00)
[2022-01-12] MEDS ORDERED: TRANEXAMIC ACID 1,000 MG **IV Pre-op IV SCH (06:00)
[2022-01-12] MEDS ORDERED: BUPIVACAINE 0.5 % 5 MG/1 ML PF 10ML VIAL ONE (06:32)
[2022-01-12] MEDS ORDERED: ONDANSETRON INJ 2 MG/ML 2 ML VIAL IV PRN ×2 (06:39→11:14)
[2022-01-12] MEDS ORDERED: fentaNYL citrate 100 MCG/2 ML VIAL IV PRN (06:39)
[2022-01-12] MEDS ORDERED: ePHEDrine sulfate 50 MG/ML AMP IV PRN (06:39)
[2022-01-12] MEDS ORDERED: ATROPINE SULFATE 0.1 MG/ML 10ML SYR IV PRN (06:39)
[2022-01-12] MEDS ORDERED: MIDAZOLAM HCL 1 MG/ML 2ML VIAL ONE (06:40)
[2022-01-12] MEDS ORDERED: PROPOFOL IV EMULSION 10 MG/ML 20 ML VIAL IV ONE (06:40)
[2022-01-12] MEDS ORDERED: fentaNYL citrate 100 MCG/2 ML VIAL ONE (06:40)
[2022-01-12] MEDS ORDERED: LIDOCAINE 2% 2 ML VIAL/AMP(20MG/ML) INFIL ONE (06:40)
--- NOTE | 2022-01-12 07:23 | History & Physical Bridge Note ---
Date of Service January 12, 2022 History & Physical Bridge Note I have examined the patient, reviewed the History & Physical and in the interval since the performance of the History & Physical I have noted the following changes of clinical significance: no changes noted
[2022-01-12] MEDS ORDERED: ONDANSETRON INJ 2 MG/ML 2 ML VIAL ONE (08:25)
[2022-01-12] MEDS ORDERED: DEXAMETHASONE SOD INJ 4 MG/ML VIAL ONE (08:25)
[2022-01-12] MEDS ORDERED: ROCURONIUM BROMIDE 10 MG/ML 5 ML VIAL IV ONE (08:25)
[2022-01-12] MEDS ORDERED: ePHEDrine sulfate 50 MG/ML AMP ONE (09:31)
--- NOTE | 2022-01-12 10:01 | Post Operative Brief Note ---
Immediate Post Op Note v1 Date of Surgery January 12, 2022 Pre & Post Diagnosis Operation Date: 01/12/22 07:15 Pre-Op Diagnosis: Right Shoulder Osteoarthritis, rotator cuff tear rotator cuff tendinopathy, biceps tendinopathy Post-Op Diagnosis: Right Shoulder Osteoarthritis, rotator cuff partial tear rotator cuff tendinopathy, biceps tendinopathy I identified the patient and participated in the time-out.: Yes Procedure Operation Date: 01/12/22 07:15 Actual Procedures p Right Reverse Total Shoulder Arthroplasty, Biceps Tenodesis(Right) - Scott Barone MD Surgeon Scott Barone MD Installment Account Checker Sanjeev MIRANDA Estimated Blood Loss 30 Findings Consistent with Post-Op Diagnosis Specimens Humeral head Drains Hemovac Drain Anesthesia Type General Regional Complications none Disposition Disposition: Recovery Room Overlapping Procedure I was immediately available: during the entire case.
--- NOTE | 2022-01-12 10:22 | Operative Report ---
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 She is [id number] radiographically in the glenohumeral joint and MRI demonstrated full-thickness supraspinatus tendon tear. Description of Procedure The patient was taken to the operating room and anesthetized under regional block and general anesthetic. The patient was positioned on the operating table in a 30 beach chair position with a towel roll under the medial border of the right scapula. The arm was draped free to be able to manipulate the shoulder as needed. The right upper extremity was prepped and draped in usual sterile fashion. Exam demonstrated 130 degrees of flexion 80 degrees abduction 60 degrees external rotation. [id number]-[id number] crepitation. Moderate obesity. An anterior deltopectoral approach was performed. A longitudinal incision was made in the deltopectoral interval. The skin was incised sharply. Subcutaneous flaps were elevated off the fascia. The cephalic vein was dissected out and retracted lateral with the deltoid. The clavipectoral fascia was divided at the lateral margin of the conjoined tendon and extended up to the CA ligament. The following findings were noted: There was marked biceps tenosynovitis. The subscapularis tendon was intact. Supraspinatus tendon had partial tearing and tendinopathy not completely torn as the MRI indicated. The upper centimeter of the pectoralis was released for inferior exposure. the biceps tendon was tenodesed to the pectoralis tendon with #2 FiberWire. The proximal biceps was resected. Approximately the biceps tendon was markedly widened with marked degenerative changes in the biceps tendon extending into the glenohumeral joint. The subscapularis tendon was taken down off the lesser tuberosity using a subperiosteal dissection. A #1 Vicryl traction suture was placed into the free end of the subscapularis tendon and capsule. The subscapul ar muscle fibers were split longitudinally at the level of the circumflex vessels. The circumflex vessels were identified and tied off with silk ties and divided laterally. A Kitner elevator was used to free up the inferior fibers of the subscapularis off of the capsule. The axillary nerve was identified with a tug test and protected with a blunt Paul retractor between the nerve and the capsule. The subscapularis tendon was then taken down off of the lesser tuberosity subperiosteally and subperiosteal dissection was performed along the neck of the humerus as the arm is gradually externally rotated exposing the humeral head. The humeral head findings demonstrated large inferior humeral osteophytes from anterior to posterior with eburnated bone. And a rongeur retractors were readjusted and the inferior osteophytes were all resected using an artist chisel. A Garcia elevator was used to assist in releasing the capsule of the neck of the humerus. The capsule was divided with Pathak scissors down to the glenoid released off the anterior glenoid and the rotator interval was released to meet the capsular release and a 360 release of the subscapularis was accomplished. A Fukuda retractor was placed into the joint retracting the humeral head posterior. Glenoid findings demonstrated concentric wear with complete loss of all articular cartilage and glenoid with eburnated very hard bone. The labrum and biceps tendon was resected. an anterior-inferior and posterior inferior capsular release were performed with electrocautery and a Garcia elevator on bone with the axillary nerve protected inferiorly by the retractor. Attention was then taken to the humeral preparation. The cutting guide was placed into the humeral head. It was positioned at 20 of retroversion. Oscillating saw was used to resect the humeral head giving the cut above the level of the posterior rotator cuff insertion site. The humerus was then prepared for the stem. I used the ascend flex stem from [employer]. The sizing broaches were used followed by trial broaches up to a size 4B long which had the appropriate fit and fill. The appropriate sized cut protector was placed. The humerus was then retracted posterior to the glenoid. The glenoid was sized for a 36 glenoid sphere. The guide for the baseplate was positioned in a 10 inferior tilt and the central drill hole was made. The reamer for the 25 mm baseplate was used. The central drill was widened for the peg. The 25 mm hydroxyapatite-coated baseplate was impacted into position. The base plate was transfixed with superior and inferior locking screws and anterior and posterior compression screws with stable fixation. The fan reamer was used for the 36 millimeter glenoid sphere. After irrigation the 36 mm standard glenoid sphere was impacted onto the baseplate and the screw was tightened. Attention was taken back to the humerus. The cut protector was removed and the plus or high offset humeral tray trial was assembled to the trial stem rotated appropriately to get bony coverage and then screwed in position. A trial reduction was performed. A 9 trial insert demonstrated good stability and no shuck. The trials were removed. 3 drill holes are made into the harder bone in the bicipital groove area and 3 #5 FiberWire sutures were placed transosseously. The canal was irrigated with antibiotic solution with bacitracin. The final component was assembled. The final component was +0 high offset tray assembled to the 4B long ascend flex stem with a 9 mm reversed polyethylene insert. This was then impacted into the humerus with a tight press-fit. It was reduced to the glenoid sphere. Stability was verified. Subscapularis was repaired with the #5 FiberWire sutures using Rui-Armando suture technique. Lateral row soft tissue repair was performed with #2 FiberWire [id number] sutures. The pectoralis was repaired with #2 FiberWire [id number]-[id number] sutures reinforcing the biceps tendon tenodesis. The arm was taken through a range of motion which demonstrated 140 degrees forward flexion 90 degrees abduction and 65 degrees external rotation without any tension on repair. The implant was stable through the range of motion tested. The wound was copiously irrigated. 2 Hemovac drains were placed. The deltopectoral interval was closed with [id number] #1 Vicryl sutures. The subcutaneous tissues were closed with 2-0 Vicryl sutures. The skin was closed with kory. Sterile dressings were applied and a shoulder immobilizer. Sanjeev MIRANDA my physician social media assistant assisted in the procedure throughout the entire procedure assisting as first aid nurse through all aspects of the procedure including patient positioning arm positioning prepping and draping soft tissue retraction instrument management suture management and performed the subcutaneous and skin closure and will participate in the postoperative care of the patient. I attest to the content of the Intraoperative Record and any orders documented therein. Any exceptions are noted below.
--- NOTE | 2022-01-12 10:57 | Anesthesiology Progress Note ---
Date of Service January 12, 2022 Anesthesia Post Procedure Vital Signs Vital Signs: Temp Pulse Pulse Resp BP Pulse Ox 01/12/22 10:50 97.7 F 66 18 142/68 H 99 01/12/22 10:40 63 19 133/62 99 01/12/22 10:30 63 18 144/68 H 100 01/12/22 10:20 66 18 140/72 100 01/12/22 10:13 97.9 F 74 15 159/77 H 99 01/12/22 05:57 97.7 F 70 18 172/70 H 99 Pain Intensity Right Shoulder: Pain Intensity: 9 Transfer of Care Handoff Completed per policy Notes Mental Status: alert / awake / arousable and participated in evaluation Patient Amnestic to Procedure: Yes Nausea / Vomiting: adequately controlled Pain: adequately controlled Airway Patency, RR, SpO2: stable & adequate BP & HR: stable & adequate Hydration State: stable & adequate Anesthetic Complications: no major complications apparent and Pt Satisfied with anesthetic care
[2022-01-12] MEDS ORDERED: bisacodyL 10 MG SUPP PR PRN (11:14)
[2022-01-12] MEDS ORDERED: traMADol HCL 50 MG TABLET PO PRN (11:14)
[2022-01-12] MEDS ORDERED: VANCOMYCIN CONSULT ACTIVE PRN (11:14)
[2022-01-12] MEDS ORDERED: NITROGLYCERIN SL 0.4 MG/TAB TAB SL PRN (11:14)
[2022-01-12] MEDS ORDERED: NALOXONE HCL 0.4 MG/1 ML VIAL/CARP IV PRN (11:14)
[2022-01-12] MEDS ORDERED: MAGNESIUM HYDROXIDE SUSP 30 ML UDC PO PRN (11:14)
[2022-01-12] MEDS ORDERED: METOCLOPRAMIDE HCL INJ 5 MG/ML 2 ML VIAL IV PRN (11:14)
[2022-01-12] MEDS ORDERED: HYDROmorphone INJ 0.5 MG/0.5 ML SYR IV PRN (11:14)
[2022-01-12] MEDS ORDERED: PHARMACY GLYCEMIC MGMT CONSULT PRN (11:14)
--- NOTE | 2022-01-12 11:44 | XRay Report ---
XR shoulder RT min 2V routine CLINICAL HISTORY: Post shoulder surgery. Status post shoulder replacement COMPARISON STUDY: No previous studies for comparison. TECHNIQUE: 2 right shoulder views FINDINGS: The patient is status post total shoulder replacement with humeral head and glenoid compone nts. The prosthetic components are in anatomic alignment with no acute abnormality identified. Skin s taples are present from the recent procedure. IMPRESSION: 1. Status post total shoulder replacement. ACT 112: Negative or not required by law. Electronically signed by: Bradley Fortune M.D. 01/12/2022 11:43 AM
[2022-01-12] MEDS ORDERED: MUPIROCIN 2% OINT 22 GM TUBE TOP PRN (12:10)
[2022-01-12] MEDS: SODIUM CHLORIDE 0.9% 1000ML 1,000 ML IV SCH ×2 (12:20→22:22)
[2022-01-12] MEDS ORDERED: GLUCOSE 40% GEL 15 GM TUBE PO PRN (12:30)
[2022-01-12] MEDS ORDERED: GLUCOSE 10 TABS/TUBE PO PRN (12:30)
[2022-01-12] MEDS ORDERED: NovoLIN-N (NPH) PER UNIT CHARGE SQ ONE (12:30)
[2022-01-12] MEDS ORDERED: CARBOHYDRATES FOR HYPOGLYCEMIA PO PRN (12:30)
[2022-01-12] MEDS ORDERED: DEXTROSE 50% 50 ML SYRINGE IV PRN (12:30)
[2022-01-12] MEDS ORDERED: GLUCAGON FOR INJ 1 MG VIAL IM PRN (12:30)
--- NOTE | 2022-01-12 12:57 | Hospitalist Consultation ---
Date of Consultation January 12, 2022 Assessment & Plan (1) Status post reverse total arthroplasty of right shoulder: * S/p right reverse total shoulder arthroplasty with biceps tendon repairDr. Barone * General anesthesia followed by supraclavicular block * Recommend postoperative pain management, PT/OT, incentive spirometry, and DVT prophylaxis--> at discretion of primary team. 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; thus is at an increased risk of DVT/PE (2) UTI (urinary tract infection): * Urine culture on 12/20 showed pansensitive Klebsiella * Patient has since completed the 10-day course of Cipro * Currently without dysuria, hematuria, frequency, fevers, chills, or suprapubic pain (3) CKD (chronic kidney disease), stage III: * Creatinine preoperatively 1.13 * Renally adjust medications when necessary and avoid nephrotoxic agents (4) Diabetes: * A1c 5.9% preoperatively * Takes Metformin which is currently on hold * Pharmacy consulted for glycemic management (5) Hyperlipidemia: * Continue pravastatin as prior to hospitalization (6) Hypertension: * BP currently marginal (104/74) * Would hold triamterene/HCTZ on POD #1 given risk for further hypotension. This may affect ability to participate with therapy but can likely resume upon discharge At this point time, agree with orders placed. Recommend follow-up labs in the a.m. Pharmacy on board for glycemic management. No additional recommendations at this time. We will sign off from a medical standpoint but please do not hesitate to reconsult should a problem arise. Thank you for allowing us to participate in the care of this patient. Plan of care has been discussed with and patient seen by Dr. Madison Supervising Physician Co-Signing Physician Notes I supervised Remedios BRISENO on the care of this patient. I interviewed and examined the patient independently of her. The plan is as written in her note except for any following changes/exceptions: None Patient is consulted for medical management. Will resume home meds as noted above, and consult pharmacy for glycemic control. History of Present Illness Reason for Consultation: Medical management Requesting Physician: Dr. Barone Attending Physician: Scott Barone MD History of Present Illness Mrs. Armas is an 81-year-old white female with an underlying past medical history of NIDDM, HLD, depression, nonobstructive CAD, rosacea, Chordroma (s/p resection, completed chemo/radiation and now with surveillance every 6 months) and mild CKD. She was seen in consultation for medical management status post elective right reverse total shoulder arthroplasty and biceps tendon repair. She had general anesthesia followed by a postoperative supraclavicular block. She had an uneventful perioperative course. She has numbness in her right arm but otherwise vocalizes no complaints or concerns specifically denies chest pain or shortness of breath. Denies nausea, vomiting, abdominal pain, dysuria, hematuria or frequency. Preoperative work-up reviewed. Patient had an A1c of 5.9% UTI notedpansensitive Klebsiella. Completed a 10-day course of Cipro. Currently without symptomatology Last cardiac evaluation was 2018. Patient had a negative dobutamine stress test. She follows with [facility] cardiology. Preoperative EKG shows a normal sinus rhythm. Rate of 70 bpm. Normal Ophiem. Nonspecific but nonacute ST/T wave changes throughout. Allergies Allergy/AdvReac Type Severity Reaction Status Date / Time ampicillin Allergy Intermediate RASH Verified 01/12/22 05:48 celecoxib Allergy Intermediate hives Verified 01/12/22 05:48 oxycodone Allergy Intermediate n/v, hives Verified 01/12/22 05:48 nitrofurantoin AdvReac Severe extreme Verified 01/12/22 05:48 fatigue and weakness atorvastatin AdvReac Intermediate Muscle Pain Verified 01/12/22 05:48 heparin AdvReac Intermediate Rash Verified 01/12/22 05:48 lisinopril AdvReac Intermediate Rash Verified 01/12/22 05:48 olmesartan [From Benicar] AdvReac Intermediate ELEVATED CK Verified 01/12/22 05:48 simvastatin [From Zocor] AdvReac Intermediate Muscle Pain Verified 01/12/22 05:48 Sulfa (Sulfonamide AdvReac Intermediate Unknown Verified 01/12/22 05:48 Antibiotics) hydrocodone AdvReac Mild hallucinati Verified 01/12/22 05:48 ons Home Medications Medication Instructions Recorded Confirmed Type biotin 5 mg tablet 5 mg PO QPM #30 tab 03/19/19 01/12/22 History cyanocobalamin (vitamin B-12) 1,000 mcg PO QAM #100 tab 03/19/19 01/12/22 History 1,000 mcg tablet zoledronic acid 5 mg/100 mL in See Rx Instructions IV .COMPLEX ml 03/19/19 01/12/22 History mannitol 5 %-water intravenous piggybck (Reclast) nitroglycerin 0.4 mg sublingual 0.4 mg SL Q5M PRN #25 tab 04/22/19 01/12/22 Rx tablet (Nitrostat) doxycycline hyclate 100 mg capsule 100 mg PO DAILY PRN cap 09/30/19 01/12/22 History hydrocortisone 2.5 % topical cream 1 applic TOPICAL BID PRN #60 g 04/23/21 01/12/22 Rx gabapentin 400 mg capsule 400 mg PO QID 06/17/21 01/12/22 History mupirocin 2 % topical ointment 1 applic TOPICAL BID PRN 06/17/21 01/12/22 History omeprazole 40 mg capsule,delayed 40 mg PO QAM 06/17/21 01/12/22 History release pravastatin 20 mg tablet 20 mg PO QAM #90 tab 08/30/21 01/12/22 Rx metformin 500 mg tablet See Rx Instructions PO BID #270 tab 11/17/21 01/12/22 Rx venlafaxine 75 mg capsule,extended 75 mg PO QAM #90 cap 11/17/21 01/12/22 Rx release 24 hr cholecalciferol (vitamin D3) 25 25 mcg PO QAM 01/07/22 01/12/22 History mcg (1,000 unit) capsule fexofenadine 180 mg tablet 180 mg PO QAM 01/07/22 01/12/22 History (Carole Allergy) triamterene 37.5 0.5 tab PO QAM 90 Days #45 tab 01/10/22 01/12/22 Rx mg-hydrochlorothiazide 25 mg tablet (Maxzide-25mg) acetaminophen 500 mg tablet 1,000 mg PO Q8 #60 tab 01/13/22 Rx (Tylenol Extra Strength) aspirin 81 mg tablet,delayed 81 mg PO BID #60 tab 01/13/22 Rx release (Enteric Coated Aspirin) tramadol 50 mg tablet 50 - 100 mg PO .Q4h-6h PRN #30 tab 01/13/22 Rx MDD 6 Patient History Medical History CKD (chronic kidney disease), stage III Diabetes Well controlled- Hgb A1C done 12/20/21 was 5.9 GERD (gastroesophageal reflux disease) Herniated intervertebral disc Lumbar area History of MRSA infection 2010 Hyperlipidemia Hypertension Idiopathic peripheral neuropathy 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 S/p sx + radiation Melanoma Hx Peptic ulcer disease Postmenopausal osteoporosis Rosacea Secondary hyperparathyroidism of renal origin Slow to wake up after anesthesia TIA (transient ischemic attack) 2017 Urge and stress incontinence Surgical History H/O melanoma excision left upper arm History of appendectomy History of back surgery Resection sacral chordoma 2010 History of bilateral breast reduction surgery History of bladder surgery History of cataract surgery bilateral History of colonoscopy History of hysterectomy with bilateral oophorectomy History of knee replacement BILATERAL History of revision of total knee arthroplasty History of tonsillectomy and adenoidectomy Hx of cardiac catheterization no stents Hx of cholecystectomy S/P carpal tunnel release BILATERAL S/P hernia repair Family History Father Brain cancer Mother Coronary heart disease Heart disease Sister Breast cancer Colorectal cancer Slow to wake up after anesthesia Grandmother Diabetes Unknown Lung cancer Hypertension Son Cerebral aneurysm Denies family history of Ovarian cancer Prostate cancer Myocardial infarction Social History Smoking Status: Never smoker Second Hand Exposure: No; Do You Dip or Chew Tobacco: No; Tobacco Cessation Education Requested by Patient: No Hx Alcohol Use: No Hx Substance Use: No Preferred Language: Kazakh Communication Ability: Effective Visual Impairment: Partially Limited Hearing Ability: Normal Scow Derrick Operator Required: No Beliefs That Will Affect Care: None marital status: Current Living Situation: Spouse Current Living Situation Comment: home with spouse current occupational status: retired How many Children do You have: 2 Other Information That Helps Us Care for You: No Feels Safe at Home: Yes Safety Concerns: Feels Safe At This Time Childhood Exposure to Second-Hand Smoke: Yes Diet Comment: diabetic diet caffeine: Yes (1 cup coffee daily) during the past year weight has: remained stable Dental Care, Regularly: No Physical Activity Frequency: 1-2 Times per Week Physical Activity 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 Physical Exam Physical Exam: General: Resting comfortably in her hospital bed. She does not appear ill or toxic. NAD. HEENT: Head is AT/NC. Buccal mucosa is moist and pink Neck: No JVD. Negative hepatojugular reflex Cardiac: RRR with occasional ectopy. 10/21 SHAI Lungs: CTA without W/R/R Abdomen: Normoactive X4. Soft and nontender in all quadrants. Extremities: Right upper extremity in a postsurgical sling. MATEUS drain noted. Postsurgical dressing dry and intact. Radial pulse and cap refill intact. Fine motor/dexterity not assessable given residual numbness from block Neuro: A&O X4. Cranial nerves II through XII are grossly intact. No focal kavita ro deficits Skin: No obvious skin lesions or rashes Psych: Appropriate affect. Pleasant and cooperative Results & Data Results & Data ([facility]) Vital Signs (Past 12 Hours) Vital Signs Temp Pulse Pulse Resp BP Pulse Ox 01/12/22 12:09 36.8 C 63 16 91/52 L 94 01/12/22 11:48 36.9 C 61 16 107/74 98 01/12/22 11:23 37.2 C 62 16 101/51 L 98 01/12/22 11:00 64 18 139/62 98 01/12/22 10:50 36.5 C 66 18 142/68 H 91 01/12/22 10:40 63 19 133/62 99 01/12/22 10:30 63 18 144/68 H 100 01/12/22 10:20 66 18 140/72 100 01/12/22 10:13 36.6 C 74 15 159/77 H 99 01/12/22 05:57 36.5 C 70 18 172/70 H 99 Laboratory Results Preoperative lab data reviewed. unremarkable. Metabolic panel unremarkable. A1c 5.9%. Covid test negative. Urinalysis grossly infected. Urine culture showing pansensitive Klebsiella which she completed a full course of Cipro. EKG nonacute PG Care Time/CCT Total # of Minutes Spent Total Time Spent with Patient: Total time spent is greater than 50% in coordination of care (as documented) at patient's floor/unit and/or counseling patient: Coding Level of Care Code 43972 Inpt Consult Level 4 Diagnoses Status post reverse total arthroplasty of right shoulder Z96.611 UTI (urinary tract infection) N39.0 CKD (chronic kidney disease), stage III N18.3 Diabetes E11.9 Hyperlipidemia E78.5 Hypertension I10
[2022-01-12] MEDS: INSULIN ASPART PER UNIT SC SCH ×3 (13:03→20:51)
--- NOTE | 2022-01-12 13:34 | Pharmacy Report ---
Pharmacy Glycemic Short Note 2 - Date of Service January 12, 2022 - Glycemic Short BSG Results (Last 24 hours): 01/12/22 01/12/22 01/12/22 05:29 08:52 10:13 POC Glucose 91 93 188 H 01/12/22 12:31 POC Glucose 157 H OUTPATIENT ANTIDIABETIC REGIMEN: * METFORMIN ASSESSMENT: * Ms Armas is an 81 y/o F on oral diabetic medications who presents s/p shoulder surgery. She received dexamethasone 8 mg IV intraoperatively. * BSG on admission was 93 mg/dL and 157 mg/dL after surgery. * Started NPH 15 units SQ x 1 (0.2 units/kg) to cover steroid hyperglycemia. * Based upon admission BSG patient will most likely not require Lantus. * Novolog weight-based stress of 2-3. * Plan to resume metformin 01/13/22 PLAN FOR INPATIENT GLYCEMIC CONTROL: * Hold outpatient oral diabetes medications * Basal insulin * NPH 15 units SQ x 1 * Bolus insulin * NovoLog per scale ACHS or Q6hrs while NPO * Goal Range: Low 110 mg/dL - High 140 mg/dL * Correction Factor: 25 mg/dL/unit * Nutritional / Prandial insulin per carb ratio of 1 unit per 8 grams CHO consumed
[2022-01-12] MEDS: GABAPENTIN 400 MG CAP PO SCH ×3 (13:51→20:50)
[2022-01-12] MEDS: ACETAMINOPHEN 500 MG TAB PO SCH ×2 (13:52→20:48)
[2022-01-12] MEDS: DOCUSATE SODIUM 100 MG CAP PO SCH (20:49)
[2022-01-12] MEDS ORDERED: SENNA 8.6 MG TAB PO SCH (21:00)
[2022-01-13] MEDS ORDERED: ALUMINUM/MAGNESIUM SUSP 30 ML UDC PO PRN (04:11)
[2022-01-13] MEDS ORDERED: FAMOTIDINE 20 MG TAB PO STA (04:11)
[2022-01-13] MEDS: ACETAMINOPHEN 500 MG TAB PO SCH (05:30)
[2022-01-13 05:54] LABS: BUN Creatinine Ratio 23.7 (10-20); Calcium 8.9 mg/dl (8.5-10.1); Creatinine Clr Calc Pharmacy 36.5 ml/min; Est GFR (African American) 49.7 ml/min; Est GFR (Non-African American) 42.9 ml/min; Potassium 4.3 mmol/L (3.5-5.1)
[2022-01-13 06:15] LABS: Basophils # (auto) 0.01 K/uL (0-0.2); Basophils % (auto) 0.1 %; Hematocrit (blood only) 32.7 % (37-47); Hemoglobin 10.9 g/dL (12.0-16.0); Immature Granulocytes # (auto) 0.03 K/uL (0.00-0.02); Immature Granulocytes % (auto) 0.2 %; Lymphocytes # (auto) 1.87 K/uL (1.2-3.4); Lymphocytes % (auto) 13.3 %; Mean Corpuscular Hemoglobin 32.8 pg (25-34); Mean Corpuscular Hgb Conc 33.3 g/dL (32-36); Mean Corpuscular Volume 98.5 fL (80-100); Mean Platelet Volume 9.2 fL (7.4-10.4); Monocytes # (auto) 0.87 K/uL (0.11-0.59); Monocytes % (auto) 6.2 %; Neutrophils # (auto) 11.26 K/uL (1.4-6.5); Neutrophils % (auto) 80.2 %; Platelet Count 270 K/uL (130-400); RDW Coefficient of Variation 12.1 % (11.5-14.5); RDW Standard Deviation 43.4 fL (36.4-46.3); Red Blood Count 3.32 M/uL (4.2-5.4); White Blood Count 14.04 K/uL (4.8-10.8)
[2022-01-13] MEDS: GABAPENTIN 400 MG CAP PO SCH (08:37)
[2022-01-13] MEDS: DOCUSATE SODIUM 100 MG CAP PO SCH (08:38)
[2022-01-13] MEDS: INSULIN ASPART PER UNIT SC SCH (08:39)
[2022-01-13] MEDS ORDERED: CYANOCOBALAMIN (B-12) 500 MCG TABLET PO SCH (09:00)
[2022-01-13] MEDS ORDERED: MULTIVITAMIN TAB PO SCH (09:00)
[2022-01-13] MEDS ORDERED: PANTOprazole 40 MG TAB PO SCH (09:00)
[2022-01-13] MEDS ORDERED: PRAVASTATIN SOD 20 MG TAB PO SCH (09:00)
[2022-01-13] MEDS ORDERED: VENLAFAXINE HCL XR 75 MG CAPXR PO SCH (09:00)
[2022-01-13] MEDS ORDERED: ASPIRIN 81 MG ECTAB PO SCH (09:00)
[2022-01-13] MEDS ORDERED: TRIAMTERENE/HCTZ 37.5/25MG TAB PO SCH (09:00)
[2022-01-13] MEDS ORDERED: CHOLECALCIFEROL 1,000 UNITS 25 MCG TAB PO SCH (09:00)
[2022-01-13] MEDS ORDERED: FEXOFENADINE HCL 180 MG TAB PO SCH (09:00)
--- NOTE | 2022-01-13 10:20 | Orthopedic Progress Note ---
Date of Service January 13, 2022 Assessment & Plan (1) Status post reverse total arthroplasty of right shoulder: Plan: POD#1 Right reverse TSA, biceps tenodesis -PT/OT-Elbow/wrist/hand motion, shoulder shrugs, pendulums. No formal PT at this time -DVT prophylaxis-SCDs, ASA 81mg daily -Pain management as written. -AM labs-hemoglobin at 10.9 this morning from 12.6 preop. Mild leukocytosis asymptomatic, likely reactive -D/C planning-plan on discharge home later today. Admission and Anticipated Discharge Date Admission Date: January 12, 2022 Subjective Patient is doing well this morning. Minimal pain. She had an episode of chest tightness yesterday after taking her pills. She had an EKG which was at her baseline, troponin negative. She does coughing a little later and regurgitation a piece of meatloaf from the day prior and her symptoms resolved. She has had no history of this before and no issues since. No other complaints. Denies chest pain, sob, dizziness, headache, fever, chills, n/v/d. Review of Systems Review of Systems: All systems reviewed & are unremarkable except as noted in Subjective Physical Exam Physical Exam: Sling to right arm is intact. Dressing is c/d/i. Hemovac in place. Fingers are mobile. Able to extend her wrist. Sensation to lateral upper arm intact. Distally n/v status and sensation intact. Constitutional: WD/WN, vitals as above Skin: no rashes, warm and dry Psychiatric: A+Ox3, euthymic affect Results & Data ([facility]) Vital Signs (Past 12 Hours) Vital Signs Temp Pulse Resp BP Pulse Ox 01/13/22 07:55 37.2 C 63 16 164/76 H 90 01/13/22 03:20 36.9 C 65 16 151/77 H 91 01/12/22 22:23 36.8 C 66 16 133/76 91 Laboratory Results Lab Results 01/12/22 01/12/22 01/12/22 Range/Units 05:29 05:41 05:43 WBC (4.8-10.8) K/uL RBC (4.2-5.4) M/uL Hgb (12.0-16.0) g/dL Hct (37-47) % MCV (80-100) fL MCH (25-34) pg MCHC (32-36) g/dL RDW Std Deviation (36.4-46.3) fL RDW Coeff of Cristopher (11.5-14.5) % Plt Count (130-400) K/uL MPV (7.4-10.4) fL Immature Gran % (Auto) % Neut % (Auto) % Lymph % (Auto) % [place] % (Auto) % Eos % (Auto) % Baso % (Auto) % Neut # (Auto) (1.4-6.5) K/uL Lymph # (Auto) (1.2-3.4) K/uL [place] # (Auto) (0.11-0.59) K/uL Eos # (Auto) (0-0.5) K/uL Baso # (Auto) (0-0.2) K/uL Immature Gran # (Auto) (0.00-0.02) K/uL Sodium (136-145) mmol/L Potassium (3.5-5.1) mmol/L Chloride (98-107) mmol/L Carbon Dioxide (21-32) mmol/L Anion Gap (3-11) BUN (6-23) mg/dl Creatinine (0.6-1.2) mg/dl Est Cr Clr Drug Dosing ml/min Est GFR ( Amer) ml/min Est GFR (Non-Af Amer) ml/min BUN/Creatinine Ratio (10-20) Glucose (70-99(Fasting)) mg/dl POC Glucose 91 (70-99) mg/dl Calcium (8.5-10.1) mg/dl Magnesium (1.7-2.4) mg/dl Troponin I (0-0.04) ng/ml SARS-CoV-2, RNA, NAAT NEGATIVE (NEGATIVE) Blood Type A Negative Antibody Screen NEGATIVE 01/12/22 01/12/22 01/12/22 Range/Units 08:52 10:13 12:31 WBC (4.8-10.8) K/uL RBC (4.2-5.4) M/uL Hgb (12.0-16.0) g/dL Hct (37-47) % MCV (80-100) fL MCH (25-34) pg MCHC (32-36) g/dL RDW Std Deviation (36.4-46.3) fL RDW Coeff of Cirstopher (11.5-14.5) % Plt Count (130-400) K/uL MPV (7.4-10.4) fL Immature Gran % (Auto) % Neut % (Auto) % Lymph % (Auto) % [place] % (Auto) % Eos % (Auto) % Baso % (Auto) % Neut # (Auto) (1.4-6.5) K/uL Lymph # (Auto) (1.2-3.4) K/uL [place] # (Auto) (0.11-0.59) K/uL Eos # (Auto) (0-0.5) K/uL Baso # (Auto) (0-0.2) K/uL Immature Gran # (Auto) (0.00-0.02) K/uL Sodium (136-145) mmol/L Potassium (3.5-5.1) mmol/L Chloride (98-107) mmol/L Carbon Dioxide (21-32) mmol/L Anion Gap (3-11) BUN (6-23) mg/dl Creatinine (0.6-1.2) mg/dl Est Cr Clr Drug Dosing ml/min Est GFR ( Amer) ml/min Est GFR (Non-Af Amer) ml/min BUN/Creatinine Ratio (10-20) Glucose (70-99(Fasting)) mg/dl POC Glucose 93 188 H 157 H (70-99) mg/dl Calcium (8.5-10.1) mg/dl Magnesium (1.7-2.4) mg/dl Troponin I (0-0.04) ng/ml SARS-CoV-2, RNA, NAAT (NEGATIVE) Blood Type Antibody Screen 01/12/22 01/12/22 01/13/22 Range/Units 17:32 20:48 05:23 WBC 14.04 H (4.8-10.8) K/uL RBC 3.32 L (4.2-5.4) M/uL Hgb 10.9 L (12.0-16.0) g/dL Hct 32.7 L (37-47) % MCV 98.5 (80-100) fL MCH 32.8 (25-34) pg MCHC 33.3 (32-36) g/dL RDW Std Deviation 43.4 (36.4-46.3) fL RDW Coeff of Cristopher 12.1 (11.5-14.5) % Plt Count 270 (130-400) K/uL MPV 9.2 (7.4-10.4) fL Immature Gran % (Auto) 0.2 % Neut % (Auto) 80.2 % Lymph % (Auto) 13.3 % [place] % (Auto) 6.2 % Eos % (Auto) 0.0 % Baso % (Auto) 0.1 % Neut # (Auto) 11.26 H (1.4-6.5) K/uL Lymph # (Auto) 1.87 (1.2-3.4) K/uL [place] # (Auto) 0.87 H (0.11-0.59) K/uL Eos # (Auto) 0.00 (0-0.5) K/uL Baso # (Auto) 0.01 (0-0.2) K/uL Immature Gran # (Auto) 0.03 H (0.00-0.02) K/uL Sodium (136-145) mmol/L Potassium (3.5-5.1) mmol/L Chloride (98-107) mmol/L Carbon Dioxide (21-32) mmol/L Anion Gap (3-11) BUN (6-23) mg/dl Creatinine (0.6-1.2) mg/dl Est Cr Clr Drug Dosing ml/min Est GFR ( Amer) ml/min Est GFR (Non-Af Amer) ml/min BUN/Creatinine Ratio (10-20) Glucose (70-99(Fasting)) mg/dl POC Glucose 143 H 137 H (70-99) mg/dl Calcium (8.5-10.1) mg/dl Magnesium (1.7-2.4) mg/dl Troponin I (0-0.04) ng/ml SARS-CoV-2, RNA, NAAT (NEGATIVE) Blood Type Antibody Screen 01/13/22 01/13/22 01/13/22 Range/Units 05:23 05:23 08:08 WBC (4.8-10.8) K/uL RBC (4.2-5.4) M/uL Hgb (12.0-16.0) g/dL Hct (37-47) % MCV (80-100) fL MCH (25-34) pg MCHC (32-36) g/dL RDW Std Deviation (36.4-46.3) fL RDW Coeff of Cristopher (11.5-14.5) % Plt Count (130-400) K/uL MPV (7.4-10.4) fL Immature Gran % (Auto) % Neut % (Auto) % Lymph % (Auto) % [place] % (Auto) % Eos % (Auto) % Baso % (Auto) % Neut # (Auto) (1.4-6.5) K/uL Lymph # (Auto) (1.2-3.4) K/uL [place] # (Auto) (0.11-0.59) K/uL Eos # (Auto) (0-0.5) K/uL Baso # (Auto) (0-0.2) K/uL Immature Gran # (Auto) (0.00-0.02) K/uL Sodium 139 (136-145) mmol/L Potassium 4.3 (3.5-5.1) mmol/L Chloride 106 (98-107) mmol/L Carbon Dioxide 26 (21-32) mmol/L Anion Gap 7 (3-11) BUN 28 H (6-23) mg/dl Creatinine 1.18 (0.6-1.2) mg/dl Est Cr Clr Drug Dosing 36.5 ml/min Est GFR ( Amer) 49.7 ml/min Est GFR (Non-Af Amer) 42.9 ml/min BUN/Creatinine Ratio 23.7 H (10-20) Glucose 129 H (70-99(Fasting)) mg/dl POC Glucose 112 H (70-99) mg/dl Calcium 8.9 (8.5-10.1) mg/dl Magnesium 2.0 (1.7-2.4) mg/dl Troponin I < 0.03 (0-0.04) ng/ml SARS-CoV-2, RNA, NAAT (NEGATIVE) Blood Type Antibody Screen
--- NOTE | 2022-01-13 21:47 | Electrocardiogram Report ---
Test Reason : Blood Pressure : / mmHG Vent. Rate : 061 BPM Atrial Rate : 061 BPM P-R Int : 148 ms QRS Dur : 082 ms QT Int : 426 ms P-R-T Axes : 052 -01 018 degrees QTc Int : 428 ms Normal sinus rhythm Cannot rule out Anterior infarct , age undetermined Abnormal ECG When compared with ECG of 18-JUN-2021 09:18, No significant change was found Confirmed by Jose Velasquez ([id number]) on 01/13/2022 9:47:09 PM Referred By: Scott Barone Confirmed By:Jose Velasquez
--- NOTE | 2022-01-17 15:08 | Discharge Summary ---
Date of Service January 17, 2022 Admission HPI Per Admitting Provider 81 year old female with PMHx significant for HTN, high cholesterol, DM2, GERD, CKD, and TIA who presents with ongoing right shoulder pain. She has endstage osteoarthritis right shoulder. She has failed conservative measures, including multiple injections. Pain interfering with her daily activities. Patient denies headaches, sweats, fevers, chills, double vision, blurred vision, cough, sore throat, dysphagia, chest pain, sob, wheezing, n/v/d/c, numbness, tingling, fatigue, urinary symptoms, mood disorders. ROS positive for right shoulder pain and stiffness. Admission Exam Per Admitting Provider Constitutional: well developed and well nourished; no acute distress Eyes: PERRL, conjunctivae normal, anicteric sclerae ENMT: external ear and nose normal, oropharynx normal Neck: trachea midline, no thyromegaly A Respiratory: normal respiratory effort, lungs clear to auscultation Cardiovascular: RRR, no murmur, no edema Musculoskeletal: Right shoulder: Crepitation noted with ROM, active painful ROM. Diffuse tenderness. FF to 90 degrees, ER to 45 degrees actively. Strength 4+/5 in ER, 4/5 abduction, 5/5 IR. Skin: no rashes, warm and dry Neurologic: patellar DTR's 2+ bilat, sensation intact Psychiatric: A+Ox3, euthymic affect Principal Diagnosis right shoulder osteoarthritis Discharge Exam Sling to right arm is intact. Dressing is c/d/i. Hemovac in place. Fingers are mobile. Able to extend her wrist. Sensation to lateral upper arm intact. Distally n/v status and sensation intact. Constitutional WD/WN, vitals as above well developed and well nourished; no acute distress Discharge Data Allergies Allergy/AdvReac Type Severity Reaction Status Date / Time ampicillin Allergy Intermediate RASH Verified 01/12/22 05:48 celecoxib Allergy Intermediate hives Verified 01/12/22 05:48 oxycodone Allergy Intermediate n/v, hives Verified 01/12/22 05:48 nitrofurantoin AdvReac Severe extreme Verified 01/12/22 05:48 fatigue and weakness atorvastatin AdvReac Intermediate Muscle Pain Verified 01/12/22 05:48 heparin AdvReac Intermediate Rash Verified 01/12/22 05:48 lisinopril AdvReac Intermediate Rash Verified 01/12/22 05:48 olmesartan [From Benicar] AdvReac Intermediate ELEVATED CK Verified 01/12/22 05:48 simvastatin [From Zocor] AdvReac Intermediate Muscle Pain Verified 01/12/22 05:48 Sulfa (Sulfonamide AdvReac Intermediate Unknown Verified 01/12/22 05:48 Antibiotics) hydrocodone AdvReac Mild hallucinati Verified 01/12/22 05:48 ons Consultations 01/10/22 14:28 Consult Hospitalist Routine Procedures Performed Operation Date: 01/12/22 07:15 Actual Procedures p Right Reverse Total Shoulder Arthroplasty, Biceps Tenodesis(Right) - Scott Barone MD Ordered Studies 01/12/22 05:00 US - OR guided needle placemen Routine Hospital Course (1) Status post reverse total arthroplasty of right shoulder: Patient presented for same day admission following right reverse total shoulder arthroplasty on 01/12/22. She tolerated procedure well. The Patient had an uneventful hospital course. Post-operatively, her activity was progressed and well tolerated. They participated in PT without complication. Labs remained stable- lowest hemoglobin recorded: 10.9. Dr. Wilder Madison of medical service was consulted for medical management during admission. Pain controlled on oral medications. Please refer to daily progress notes and PT notes for complete details. After exam on 01/13/22, patient was felt to be stable for discharge home. Patient will f/u in the office in about 2 weeks for further evaluation including x-rays and incision check, sooner if having any issues or concerns. POD#1 Right reverse TSA, biceps tenodesis -PT/OT-Elbow/wrist/hand motion, shoulder shrugs, pendulums. No formal PT at this time -DVT prophylaxis-SCDs, ASA 81mg daily -Pain management as written. -AM labs-hemoglobin at 10.9 this morning from 12.6 preop. Mild leukocytosis asymptomatic, likely reactive -D/C planning-plan on discharge home later today. Lab Results 01/12/22 01/12/22 01/12/22 Range/Units 05:29 05:41 05:43 WBC (4.8-10.8) K/uL RBC (4.2-5.4) M/uL Hgb (12.0-16.0) g/dL Hct (37-47) % MCV (80-100) fL MCH (25-34) pg MCHC (32-36) g/dL RDW Std Deviation (36.4-46.3) fL RDW Coeff of Cristopher (11.5-14.5) % Plt Count (130-400) K/uL MPV (7.4-10.4) fL Immature Gran % (Auto) % Neut % (Auto) % Lymph % (Auto) % [place] % (Auto) % Eos % (Auto) % Baso % (Auto) % Neut # (Auto) (1.4-6.5) K/uL Lymph # (Auto) (1.2-3.4) K/uL [place] # (Auto) (0.11-0.59) K/uL Eos # (Auto) (0-0.5) K/uL Baso # (Auto) (0-0.2) K/uL Immature Gran # (Auto) (0.00-0.02) K/uL Sodium (136-145) mmol/L Potassium (3.5-5.1) mmol/L Chloride (98-107) mmol/L Carbon Dioxide (21-32) mmol/L Anion Gap (3-11) BUN (6-23) mg/dl Creatinine (0.6-1.2) mg/dl Est Cr Clr Drug Dosing ml/min Est GFR ( Amer) ml/min Est GFR (Non-Af Amer) ml/min BUN/Creatinine Ratio (10-20) Glucose (70-99(Fasting)) mg/dl POC Glucose 91 (70-99) mg/dl Calcium (8.5-10.1) mg/dl Magnesium (1.7-2.4) mg/dl Troponin I (0-0.04) ng/ml SARS-CoV-2, RNA, NAAT NEGATIVE (NEGATIVE) Blood Type A Negative Antibody Screen NEGATIVE 01/12/22 01/12/22 01/12/22 Range/Units 08:52 10:13 12:31 WBC (4.8-10.8) K/uL RBC (4.2-5.4) M/uL Hgb (12.0-16.0) g/dL Hct (37-47) % MCV (80-100) fL MCH (25-34) pg MCHC (32-36) g/dL RDW Std Deviation (36.4-46.3) fL RDW Coeff of Cristopher (11.5-14.5) % Plt Count (130-400) K/uL MPV (7.4-10.4) fL Immature Gran % (Auto) % Neut % (Auto) % Lymph % (Auto) % [place] % (Auto) % Eos % (Auto) % Baso % (Auto) % Neut # (Auto) (1.4-6.5) K/uL Lymph # (Auto) (1.2-3.4) K/uL [place] # (Auto) (0.11-0.59) K/uL Eos # (Auto) (0-0.5) K/uL Baso # (Auto) (0-0.2) K/uL Immature Gran # (Auto) (0.00-0.02) K/uL Sodium (136-145) mmol/L Potassium (3.5-5.1) mmol/L Chloride (98-107) mmol/L Carbon Dioxide (21-32) mmol/L Anion Gap (3-11) BUN (6-23) mg/dl Creatinine (0.6-1.2) mg/dl Est Cr Clr Drug Dosing ml/min Est GFR ( Amer) ml/min Est GFR (Non-Af Amer) ml/min BUN/Creatinine Ratio (10-20) Glucose (70-99(Fasting)) mg/dl POC Glucose 93 188 H 157 H (70-99) mg/dl Calcium (8.5-10.1) mg/dl Magnesium (1.7-2.4) mg/dl Troponin I (0-0.04) ng/ml SARS-CoV-2, RNA, NAAT (NEGATIVE) Blood Type Antibody Screen 01/12/22 01/12/22 01/13/22 Range/Units 17:32 20:48 05:23 WBC 14.04 H (4.8-10.8) K/uL RBC 3.32 L (4.2-5.4) M/uL Hgb 10.9 L (12.0-16.0) g/dL Hct 32.7 L (37-47) % MCV 98.5 (80-100) fL MCH 32.8 (25-34) pg MCHC 33.3 (32-36) g/dL RDW Std Deviation 43.4 (36.4-46.3) fL RDW Coeff of Cristopher 12.1 (11.5-14.5) % Plt Count 270 (130-400) K/uL MPV 9.2 (7.4-10.4) fL Immature Gran % (Auto) 0.2 % Neut % (Auto) 80.2 % Lymph % (Auto) 13.3 % [place] % (Auto) 6.2 % Eos % (Auto) 0.0 % Baso % (Auto) 0.1 % Neut # (Auto) 11.26 H (1.4-6.5) K/uL Lymph # (Auto) 1.87 (1.2-3.4) K/uL [place] # (Auto) 0.87 H (0.11-0.59) K/uL Eos # (Auto) 0.00 (0-0.5) K/uL Baso # (Auto) 0.01 (0-0.2) K/uL Immature Gran # (Auto) 0.03 H (0.00-0.02) K/uL Sodium (136-145) mmol/L Potassium (3.5-5.1) mmol/L Chloride (98-107) mmol/L Carbon Dioxide (21-32) mmol/L Anion Gap (3-11) BUN (6-23) mg/dl Creatinine (0.6-1.2) mg/dl Est Cr Clr Drug Dosing ml/min Est GFR ( Amer) ml/min Est GFR (Non-Af Amer) ml/min BUN/Creatinine Ratio (10-20) Glucose (70-99(Fasting)) mg/dl POC Glucose 143 H 137 H (70-99) mg/dl Calcium (8.5-10.1) mg/dl Magnesium (1.7-2.4) mg/dl Troponin I (0-0.04) ng/ml SARS-CoV-2, RNA, NAAT (NEGATIVE) Blood Type Antibody Screen 01/13/22 01/13/22 01/13/22 Range/Units 05:23 05:23 08:08 WBC (4.8-10.8) K/uL RBC (4.2-5.4) M/uL Hgb (12.0-16.0) g/dL Hct (37-47) % MCV (80-100) fL MCH (25-34) pg MCHC (32-36) g/dL RDW Std Deviation (36.4-46.3) fL RDW Coeff of Cristopher (11.5-14.5) % Plt Count (130-400) K/uL MPV (7.4-10.4) fL Immature Gran % (Auto) % Neut % (Auto) % Lymph % (Auto) % [place] % (Auto) % Eos % (Auto) % Baso % (Auto) % Neut # (Auto) (1.4-6.5) K/uL Lymph # (Auto) (1.2-3.4) K/uL [place] # (Auto) (0.11-0.59) K/uL Eos # (Auto) (0-0.5) K/uL Baso # (Auto) (0-0.2) K/uL Immature Gran # (Auto) (0.00-0.02) K/uL Sodium 139 (136-145) mmol/L Potassium 4.3 (3.5-5.1) mmol/L Chloride 106 (98-107) mmol/L Carbon Dioxide 26 (21-32) mmol/L Anion Gap 7 (3-11) BUN 28 H (6-23) mg/dl Creatinine 1.18 (0.6-1.2) mg/dl Est Cr Clr Drug Dosing 36.5 ml/min Est GFR ( Amer) 49.7 ml/min Est GFR (Non-Af Amer) 42.9 ml/min BUN/Creatinine Ratio 23.7 H (10-20) Glucose 129 H (70-99(Fasting)) mg/dl POC Glucose 112 H (70-99) mg/dl Calcium 8.9 (8.5-10.1) mg/dl Magnesium 2.0 (1.7-2.4) mg/dl Troponin I < 0.03 (0-0.04) ng/ml SARS-CoV-2, RNA, NAAT (NEGATIVE) Blood Type Antibody Screen 01/13/22 Range/Units 11:53 WBC (4.8-10.8) K/uL RBC (4.2-5.4) M/uL Hgb (12.0-16.0) g/dL Hct (37-47) % MCV (80-100) fL MCH (25-34) pg MCHC (32-36) g/dL RDW Std Deviation (36.4-46.3) fL RDW Coeff of Cristopher (11.5-14.5) % Plt Count (130-400) K/uL MPV (7.4-10.4) fL Immature Gran % (Auto) % Neut % (Auto) % Lymph % (Auto) % [place] % (Auto) % Eos % (Auto) % Baso % (Auto) % Neut # (Auto) (1.4-6.5) K/uL Lymph # (Auto) (1.2-3.4) K/uL [place] # (Auto) (0.11-0.59) K/uL Eos # (Auto) (0-0.5) K/uL Baso # (Auto) (0-0.2) K/uL Immature Gran # (Auto) (0.00-0.02) K/uL Sodium (136-145) mmol/L Potassium (3.5-5.1) mmol/L Chloride (98-107) mmol/L Carbon Dioxide (21-32) mmol/L Anion Gap (3-11) BUN (6-23) mg/dl Creatinine (0.6-1.2) mg/dl Est Cr Clr Drug Dosing ml/min Est GFR ( Amer) ml/min Est GFR (Non-Af Amer) ml/min BUN/Creatinine Ratio (10-20) Glucose (70-99(Fasting)) mg/dl POC Glucose 101 H (70-99) mg/dl Calcium (8.5-10.1) mg/dl Magnesium (1.7-2.4) mg/dl Troponin I (0-0.04) ng/ml SARS-CoV-2, RNA, NAAT (NEGATIVE) Blood Type Antibody Screen Total Time Total Time Spent Total Time Spent (In Minutes): 20 Discharge Plan Discharge Items Patient Disposition: Home - Self-Care Reason For Visit: Right Shoulder Osteoarthritis Discharge Diagnosis: Right shoulder osteoarthritis Activity: Per Instructions section Non-emergency contact: Surgeon Call non-emergency contact if: you have any medication questions, your pain is not controlled, your pain is concerning for you, you have a fever, your temperature is above 101, your wound has increased redness and your wound has increased drainage Follow-up/Referrals: Airam Sanchez MD [Primary Care Provider] - Scott Barone MD [Surgeon] - 01/25/22 9:45 am (APPT WITH MARIA MONTES DE OCA PA-C, [facility]) Diet: Regular Addtl Attending Provider Instructions: ACTIVITY RECOMMENDATIONS: SELF CARE INSTRUCTIONS AFTER TOTAL SHOULDER ARTHROPLASTY REVERSE A. You may do daily exercises as taught in physical therapy while in hospital. No lifting with the operative arm. B. You are to wear your sling/immobilizer at all times EXCEPT when performing your daily exercises and for hygiene purposes. C. You may perform dry, daily dressing changes. Please keep your incision covered. You may shower 48 hours after surgery. Do not apply soap or any ointment/lotions directly over incision. Do not soak incision in bath tub/swimming pool. D. You may use ice as needed to operative shoulder. E. You should take Aspirin 81mg twice daily for 1 month post op and then may resume your normal once a day dosing. SPECIAL CARE INSTRUCTIONS: VERY IMPORTANT TO READ AND REVIEW A. There are a few signs you need to watch for after you are home. Call [facility] at [phone] if you experience any of the followin. Increased severe shoulder pain. Some pain is expected especially when you exercise. 2. Increased swelling in you shoulder or arm; pain or swelling in either upper extremity. 3. Any fluid drainage from the incision. 4. Shortness of breath or chest pain. B. Please call [facility] at [phone] if you have any questions or concerns about your operation or recovery. C. Call your physician if: 1. Temperature is greater than 101 degrees (F). 2. Pain is not relieved by prescribed pain medications. 3. Increase drainage or redness from incision. 4. Unanswered questions or concerns. FOLLOW UP VISIT: Please call [facility] at [phone] to schedule a follow up appointment with Dr. Barone or his PA in 12-14 days from your surgery date. Stand-Alone Forms: [employer], Smoking Cessation Medications and DC Order Prescriptions: New tramadol 50 mg Tablet 50 - 100 mg PO .Q4h-6h MDD 6 PRN (Reason: pain) Qty: 30 RF: 0 acetaminophen [Tylenol Extra Strength] 500 mg Tablet 1,000 mg PO Q8 Qty: 60 RF: 0 aspirin [Enteric Coated Aspirin] 81 mg tablet,delayed release (DR/EC) 81 mg PO BID Qty: 60 RF: 0 Continued hydrocortisone 2.5 % cream 1 applic topical BID PRN (Reason: skin irritation) Qty: 60 RF: 0 metformin 500 mg tablet See Rx Instructions PO BID Qty: 270 RF: 3 venlafaxine 75 mg capsule,extended release 24hr 75 mg PO QAM Qty: 90 RF: 3 triamterene-hydrochlorothiazid [Maxzide-25mg] 37.5-25 mg tablet 0.5 tab PO QAM 90 Days Qty: 45 RF: 3 biotin 5 mg tablet 5 mg PO QPM Qty: 30 RF: 0 cyanocobalamin (vitamin B-12) 1,000 mcg tablet 1,000 mcg PO QAM Qty: 100 RF: 0 zoledronic rqia-tuqoeupy-dlstu [Reclast] 5 mg/100 mL piggyback See Rx Instructions IV .COMPLEX RF: 0 doxycycline hyclate 100 mg capsule 100 mg PO DAILY PRN (Reason: ud) RF: 0 nitroglycerin [Nitrostat] 0.4 mg tablet, sublingual 0.4 mg SL Q5M PRN (Reason: chest pain) Qty: 25 RF: 0 pravastatin 20 mg tablet 20 mg PO QAM Qty: 90 RF: 3 gabapentin 400 mg capsule 400 mg PO QID RF: 0 omeprazole 40 mg capsule,delayed release(DR/EC) 40 mg PO QAM RF: 0 mupirocin 2 % ointment 1 applic topical BID PRN (Reason: ud) RF: 0 fexofenadine [Carole Allergy] 180 mg tablet 180 mg PO QAM RF: 0 cholecalciferol (vitamin D3) 25 mcg (1,000 unit) capsule 25 mcg PO QAM RF: 0 Discontinued aspirin 81 mg tablet,delayed release (DR/EC) 81 mg PO QAM RF: 0 Discharge Orders: Discharge Order (Routine); Ordered 01/13/22 Ordered By: Maria Montes De Oca Admission Data Admit Date/Time: 01/12/22 10:18 Attending Provider: Scott Barone Admit Provider: Scott Barone Primary Care Provider: Airam Sanchez Other Providers: Fernando Jimenez Other Interventions: Discharge Summary Assessment (RN) Last Done: 01/13/22 12:01
== END 2022-01-13 12:34 | disposition home or self-care (01) ==
LOC: 3E 05:02 → ASU 05:02

== ENCOUNTER 2022-04-28 11:17 | Inpatient (IN) ==
--- NOTE | 2022-04-20 13:14 | Anesthesiology Consultation ---
Date of Service April 20, 2022 Assessment & Plan (1) Encounter for pre-operative examination: - check BSG am DOS. - PCP 04/19/22 [place]: "...Keflex rx for possible developing cellulitis (of toes bilat). GFR > 30..." Surgeon's office made aware, to surgeon's discretion if to proceed. - R TSA 01/12/22 [facility]: Grade 1 view, MAC 3, ETT 7.0. No postop issues per anesthesia progress note. - COVID screening: Per curriculum and assessment director on 04/20/2022: Travel screen negative, no known COVID-19 positive contacts or current COVID-19 related symptoms in past 2 weeks. Pt vaccinated. Surgeon arranging preop COVID testing, scheduled 04/26/2022. Awaiting results. Chart Review Chart Review: Acceptable Risk for Surgery and Patient NOT seen in Pre Admission Testing History Surgery Operation Date: 04/28/22 13:30 Proposed Procedures p Left Reverse Total Shoulder Arthroplasty - Scott Barone MD Height/Weight Height: 5 ft 1 in Weight: 81.647 kg Allergies Allergy/AdvReac Type Severity Reaction Status Date / Time ampicillin Allergy Intermediate RASH Verified 03/01/22 09:18 celecoxib Allergy Intermediate hives Verified 03/01/22 09:18 oxycodone Allergy Intermediate n/v, hives Verified 03/01/22 09:18 nitrofurantoin AdvReac Severe extreme Verified 03/01/22 09:18 fatigue and weakness atorvastatin AdvReac Intermediate Muscle Pain Verified 03/01/22 09:18 heparin AdvReac Intermediate Rash Verified 03/01/22 09:18 lisinopril AdvReac Intermediate Rash Verified 03/01/22 09:18 olmesartan [From Benicar] AdvReac Intermediate ELEVATED CK Verified 03/01/22 09 :18 simvastatin [From Zocor] AdvReac Intermediate Muscle Pain Verified 03/01/22 09:18 Sulfa (Sulfonamide AdvReac Intermediate Unknown Verified 03/01/22 09:18 Antibiotics) hydrocodone AdvReac Mild hallucinati Verified 03/01/22 09:18 ons Medications Home Medications Medication Instructions Recorded Confirmed Last Taken biotin 5 mg tablet 5 mg PO QPM #30 tab 03/19/19 04/20/22 01/11/22 07:00 cyanocobalamin (vitamin B-12) 1,000 mcg PO QAM #100 tab 03/19/19 04/20/22 01/11/22 07:00 1,000 mcg tablet zoledronic acid 5 mg/100 mL in See Rx Instructions IV .COMPLEX ml 03/19/19 04/20/22 Unknown mannitol 5 %-water intravenous piggybck (Reclast) nitroglycerin 0.4 mg sublingual 0.4 mg SL Q5M PRN #25 tab 04/22/19 04/20/22 Unknown tablet (Nitrostat) doxycycline hyclate 100 mg capsule 100 mg PO DAILY PRN cap 09/30/19 04/20/22 Unknown hydrocortisone 2.5 % topical cream 1 applic TOPICAL BID PRN #60 g 04/23/21 04/20/22 Unknown gabapentin 400 mg capsule 400 mg PO QID 06/17/21 04/20/22 01/12/22 04:00 pravastatin 20 mg tablet 20 mg PO QAM #90 tab 08/30/21 04/20/22 01/11/22 07:00 metformin 500 mg tablet See Rx Instructions PO BID #270 tab 11/17/21 04/20/22 01/11/22 18:00 venlafaxine 75 mg capsule,extended 75 mg PO QAM #90 cap 11/17/21 04/20/22 01/12/22 04:00 release 24 hr cholecalciferol (vitamin D3) 25 25 mcg PO QAM 01/07/22 04/20/22 01/11/22 07:00 mcg (1,000 unit) capsule acetaminophen 500 mg tablet 1,000 mg PO Q8 #60 tab 01/13/22 04/20/22 Unknown (Tylenol Extra Strength) omeprazole 40 mg capsule,delayed 40 mg PO QAM #90 cap 03/09/22 04/20/22 Unknown release triamterene 37.5 1 tab PO QAM 90 Days #90 tab 03/09/22 04/20/22 Unknown mg-hydrochlorothiazide 25 mg tablet (Maxzide-25mg) cephalexin 500 mg tablet 500 mg PO QID 10 Days #40 tab 04/19/22 04/20/22 Unknown Past Medical History Medical History (Updated 04/20/22 @ 13:07 by Leelee Torres PA-C) CKD (chronic kidney disease), stage III Diabetes NIDDM GERD (gastroesophageal reflux disease) Herniated intervertebral disc Lumbar area History of blood transfusion 2010 with spinal surgery per pt History of MRSA infection 2010 - incision site from back surgery - in hosp 66 days at [facility] ([place]) Hyperlipidemia Hypertension Idiopathic peripheral neuropathy 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 S/p sx + radiation Melanoma Hx on left arm Peptic ulcer disease Postmenopausal osteoporosis Rosacea Secondary hyperparathyroidism of renal origin Slow to wake up after anesthesia TIA (transient ischemic attack) 2017 - no deficits Urge and stress incontinence Past Family History Family History Father Brain cancer Mother Coronary heart disease Heart disease Myocardial infarction Sister Slow to wake up after anesthesia Breast cancer Colorectal cancer Grandmother Diabetes Unknown Lung cancer Hypertension Son Cerebral aneurysm Denies family history of Ovarian cancer Prostate cancer Past Surgical History Surgical History H/O melanoma excision left upper arm History of appendectomy History of back surgery Resection sacral chordoma 2010 History of bilateral breast reduction surgery History of bladder surgery History of cataract surgery bilateral History of colonoscopy History of hysterectomy with bilateral oophorectomy History of knee replacement BILATERAL History of revision of total knee arthroplasty History of right shoulder replacement History of tonsillectomy and adenoidectomy Hx of cardiac catheterization before 2009 d/t [facility] - no stents Hx of cholecystectomy S/P carpal tunnel release BILATERAL S/P hernia repair Social History Smoking Status: Never smoker Do You Dip or Chew Tobacco: No Hx Alcohol Use: No Alcohol type: wine alcohol intake frequency: holidays/special occasions only Hx Substance Use: No substance use type: does not use Lab Results Anesthesia Preop Results Results Anesthesia Widget: WBC 8.19 K/uL (4.8-10.8) 04/01/22 Hgb 12.9 g/dL (12.0-16.0) 04/01/22 Hct 38.8 % (37-47) 04/01/22 Plt 297 K/uL (130-400) 04/01/22 Na 138 mmol/L (136-145) 04/01/22 K 4.3 mmol/L (3.5-5.1) 04/01/22 Cl 104 mmol/L (98-107) 04/01/22 CO2 26 mmol/L (21-32) 04/01/22 BUN 33 mg/dl (6-23) H 04/01/22 Creat 1.23 mg/dl (0.6-1.2) H 04/01/22 Glucose Level 94 mg/dl (70-99(Fasting)) 04/01/22 PT 10.3 Seconds (9.0-12.0) 04/01/22 PTT 26.7 Seconds (21.0-31.0) 04/01/22 INR 1.0 (0.9-1.1) 04/01/22 HA1c 6.0 % (4.5-5.6) H 04/01/22 Urine Color Yellow 04/01/22 Urine Appearance Cloudy (Clear) A 04/01/22 Urine pH 5.5 (4.5-7.5) 04/01/22 Urine Specific [place] 1.020 (1.000-1.030) 04/01/22 Urine Protein Negative (Negative) 04/01/22 Urine Glucose (UA) Negative (Negative) 04/01/22 Urine Ketones Negative (Negative) 04/01/22 Urine Blood Negative (Negative) 04/01/22 Urine Nitrite Negative (Negative) 04/01/22 Urine Bilirubin Negative (Negative) 04/01/22 Urine Urobilinogen Negative (Negative) 04/01/22 Urine Leukocyte Esterase Negative (Negative) 04/01/22 Urine WBC (Auto) 1-5 /hpf (0-5) 04/01/22 Urine RBC (Auto) 0-4 /hpf (0-4) 04/01/22 Urine Hyaline Casts (Auto) 1-5 /lpf (0-5) 04/01/22 Urine Epithelial Cells (Auto) >30 /lpf (0-5) H 04/01/22 Urine Bacteria (Auto) Negative (Negative) 04/01/22 Urine Yeast Not Reportable 03/08/22 Testing Electrocardiogram Date: 01/13/22 NSR, rate 61 bpm Cannot rule out anterior infarct, age undetermined, no significant change VS ECG 06/18/21 Chest X-Ray Date: 06/18/21 PA and lateral chest radiographs are compared to study dated 02/06/2017. The heart is enlarged noting atherosclerotic calcification of the thoracic aorta. The pulmonary vasculature is noncongested. Chronic interstitial thickening is similar to previous. There is bibasilar scarring/atelectasis. No airspace consolidation or large pleural effusion is identified. There is no pneumothorax. The skeletal structures are osteopenic. Degenerative change is noted in the shoulders and thoracic spine. The bony thorax appears intact. Cholecystectomy clips are noted in the right upper quadrant. IMPRESSION: Cardiomegaly with no active disease in the chest. Stress Test Date: 04/10/19 Dobutamine MPHR 100% Negative for inducible ischemia EF 56% Grade I diastolic dysfunction No significant valvular pathology
--- NOTE | 2022-04-26 12:48 | History & Physical Report ---
Date of Service April 26, 2022 Assessment & Plan (1) Primary osteoarthritis, left shoulder: Plan: Treatment options discussed with patient. She has failed conservative measures. Surgical intervention recommended. Risks, benefits and alternatives to surgery including but not limited to infection, DVT, pain, stiffness, need for revision surgery, damage to blood vessels, damage to nerves, PE, , were discussed with the patient and they wish to proceed. Plan on left reverse total shoulder arthroplasty at [facility] on 04/28/[address] Barone. All questions answered. She will follow up post operatively. History of Present Illness Chief Complaint: Left shoulder pain Primary Care Provider: Airam Sanchez MD 81 year old female with PMHx significant for HTN, high cholesterol, DM2, GERD, CKD, and TIA who presents with ongoing left shoulder pain. She has endstage osteoarthritis left shoulder. She has failed conservative measures, including multiple injections. Pain interfering with her daily activities. Patient denies headaches, sweats, fevers, chills, double vision, blurred vision, cough, sore throat, dysphagia, chest pain, sob, wheezing, n/v/d/c, numbness, tingling, fatigue, urinary symptoms, mood disorders. ROS positive for left shoulder pain and stiffness Allergies Allergy/AdvReac Type Severity Reaction Status Date / Time ampicillin Allergy Intermediate RASH Verified 03/01/22 09:18 celecoxib Allergy Intermediate hives Verified 03/01/22 09:18 oxycodone Allergy Intermediate n/v, hives Verified 03/01/22 09:18 nitrofurantoin AdvReac Severe extreme Verified 03/01/22 09:18 fatigue and weakness atorvastatin AdvReac Intermediate Muscle Pain Verified 03/01/22 09:18 heparin AdvReac Intermediate Rash Verified 03/01/22 09:18 lisinopril AdvReac Intermediate Rash Verified 03/01/22 09:18 olmesartan [From Benicar] AdvReac Intermediate ELEVATED CK Verified 03/01/22 09:18 simvastatin [From Zocor] AdvReac Intermediate Muscle Pain Verified 03/01/22 09:18 Sulfa (Sulfonamide AdvReac Intermediate Unknown Verified 03/01/22 09:18 Antibiotics) hydrocodone AdvReac Mild hallucinati Verified 03/01/22 09:18 ons Home Medications Medication Instructions Recorded Confirmed Type biotin 5 mg tablet 5 mg PO QPM #30 tab 03/19/19 04/20/22 History cyanocobalamin (vitamin B-12) 1,000 mcg PO QAM #100 tab 03/19/19 04/20/22 History 1,000 mcg tablet zoledronic acid 5 mg/100 mL in See Rx Instructions IV .COMPLEX ml 03/19/19 04/20/22 History mannitol 5 %-water intravenous piggybck (Reclast) nitroglycerin 0.4 mg sublingual 0.4 mg SL Q5M PRN #25 tab 04/22/19 04/20/22 Rx tablet (Nitrostat) doxycycline hyclate 100 mg capsule 100 mg PO DAILY PRN cap 09/30/19 04/20/22 History hydrocortisone 2.5 % topical cream 1 applic TOPICAL BID PRN #60 g 04/23/21 04/20/22 Rx gabapentin 400 mg capsule 400 mg PO QID 06/17/21 04/20/22 History pravastatin 20 mg tablet 20 mg PO QAM #90 tab 08/30/21 04/20/22 Rx metformin 500 mg tablet See Rx Instructions PO BID #270 tab 11/17/21 04/20/22 Rx venlafaxine 75 mg capsule,extended 75 mg PO QAM #90 cap 11/17/21 04/20/22 Rx release 24 hr cholecalciferol (vitamin D3) 25 25 mcg PO QAM 01/07/22 04/20/22 History mcg (1,000 unit) capsule acetaminophen 500 mg tablet 1,000 mg PO Q8 #60 tab 01/13/22 04/20/22 Rx (Tylenol Extra Strength) omeprazole 40 mg capsule,delayed 40 mg PO QAM #90 cap 03/09/22 04/20/22 Rx release triamterene 37.5 1 tab PO QAM 90 Days #90 tab 03/09/22 04/20/22 Rx mg-hydrochlorothiazide 25 mg tablet (Maxzide-25mg) cephalexin 500 mg tablet 500 mg PO QID 10 Days #40 tab 04/19/22 04/20/22 Rx Past Med/Surg History Medical History (Updated 04/26/22 @ 12:50 by Carlo Montes De Oca PA-C) CKD (chronic kidney disease), stage III Diabetes NIDDM GERD (gastroesophageal reflux disease) Herniated intervertebral disc Lumbar area History of blood transfusion 2009 with spinal surgery per pt History of MRSA infection 2010 - incision site from back surgery - in hosp 66 days at [facility] (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 S/p sx + radiation Melanoma Hx on left arm Peptic ulcer disease Postmenopausal osteoporosis Rosacea Secondary hyperparathyroidism of renal origin Slow to wake up after anesthesia TIA (transient ischemic attack) 2017 - no deficits Urge and stress incontinence Surgical History H/O melanoma excision left upper arm History of appendectomy History of back surgery Resection sacral chordoma 2010 History of bilateral breast reduction surgery History of bladder surgery History of cataract surgery bilateral History of colonoscopy History of hysterectomy with bilateral oophorectomy History of knee replacement BILATERAL History of revision of total knee arthroplasty History of right shoulder replacement History of tonsillectomy and adenoidectomy Hx of cardiac catheterization before 2009 d/t [facility] - no stents Hx of cholecystectomy S/P carpal tunnel release BILATERAL S/P hernia repair Family History Father Brain cancer Mother Coronary heart disease Heart disease Myocardial infarction Sister Slow to wake up after anesthesia Breast cancer Colorectal cancer Grandmother Diabetes Unknown Lung cancer Hypertension Son Cerebral aneurysm Denies family history of Ovarian cancer Prostate cancer Social History Smoking Status: Never smoker Second Hand Exposure: No; Hx Alcohol Use: No Hx Substance Use: No Preferred Language: Tuvaluan Communication Ability: Effective Visual Impairment: Partially Limited Hearing Ability: Normal [place] Member Required: No Beliefs That Will Affect Care: None marital status: Current Living Situation: Spouse Current Living Situation Comment: home with spouse current occupational status: retired How many Children do You have: 2 Feels Safe at Home: Yes Childhood Exposure to Second-Hand Smoke: Yes Diet Comment: diabetic diet caffeine: Yes (1 cup coffee daily) during the past year weight has: remained stable Dental Care, Regularly: No Physical Activity Frequency: 1-2 Times per Week Physical Activity Frequency Comment: Moderate naprapath- cleaning, cooking, laundry Seatbelt Use: always Sunscreen Use: Yes Do you think of yourself as: straight/heterosexual Assistive Devices: Denture - Upper, Denture - Lower and Glasses Review of Systems All systems reviewed & are unremarkable except as noted in HPI & below Physical Exam Constitutional: well developed and well nourished; no acute distress Eyes: PERRL, conjunctivae normal, anicteric sclerae ENMT: external ear and nose normal, oropharynx normal Neck: trachea midline, no thyromegaly Respiratory: normal respiratory effort, lungs clear to auscultation Cardiovascular: RRR, no murmur, no edema Musculoskeletal: Left shoulder: Crepitation noted with ROM, active painful ROM. Diffuse tenderness. FF to 90 degrees, ER to 45 degrees actively. Weakness and pain with strength testing. Skin: no rashes, warm and dry Neurologic: patellar DTR's 2+ bilat, sensation intact Psychiatric: A+Ox3, euthymic affect Results & Data ([facility]) Diagnostic Findings Left shoulder: Endstage osteoarthritis left shoulder, bone on bone GH joint.
[~2022-04-28 11:17] MED LIST changes: +ACETAMINOPHEN 500 MG TAB PO SCH; -ASPI-320 PO; +BUPIVACAINE 0.5 % 5 MG/1 ML PF 10ML VIAL ONE; -DOXY100C2 PO; +FAMOTIDINE 20 MG TAB PO SCH; -FLV400 PO; +GABAPENTIN 300 MG CAP PO SCH; -IBUP-1105 PO; -LPT40 PO; +LR 15ML/HR IV SCH; +METOCLOPRAMIDE HCL 10 MG TABLET PO SCH; -OMEP40CA41 PO; +PROPOFOL IV EMULSION 10 MG/ML 20 ML VIAL IV ONE; +ROCURONIUM BROMIDE 10 MG/ML 5 ML VIAL IV ONE; +TRANEXAMIC ACID 1,000 MG **IV Intra-op IV SCH; +TRANEXAMIC ACID 1,000 MG **IV Pre-op IV SCH; -TRIATAB3 PO; +VANCOMYCIN HCL 1,250 MG in SODIUM CHLORIDE 0.9% 250 ML IV SCH
[2022-04-28] MEDS ORDERED: MIDAZOLAM HCL 1 MG/ML 2ML VIAL ONE (12:10)
[2022-04-28] MEDS ORDERED: fentaNYL citrate 100 MCG/2 ML VIAL IV PRN (12:11)
[2022-04-28] MEDS ORDERED: ATROPINE SULFATE 0.1 MG/ML 10ML SYR IV PRN (12:11)
[2022-04-28] MEDS ORDERED: ePHEDrine sulfate 50 MG/ML AMP IV PRN (12:11)
[2022-04-28] MEDS ORDERED: ONDANSETRON INJ 2 MG/ML 2 ML VIAL IV PRN ×2 (12:11→17:31)
--- NOTE | 2022-04-28 12:20 | History & Physical Bridge Note ---
Date of Service April 28, 2022 History & Physical Bridge Note I have examined the patient, reviewed the History & Physical and in the interval since the performance of the History & Physical I have noted the following changes of clinical significance: no changes noted
[2022-04-28] MEDS ORDERED: DEXAMETHASONE SOD INJ 4 MG/ML VIAL ONE (13:16)
[2022-04-28] MEDS ORDERED: ROCURONIUM BROMIDE 10 MG/ML 5 ML VIAL IV ONE (14:21)
[2022-04-28] MEDS ORDERED: ONDANSETRON INJ 2 MG/ML 2 ML VIAL ONE (14:56)
[2022-04-28] MEDS ORDERED: GLYCOPYRROLATE 0.2 MG/ML VIAL ONE (15:14)
[2022-04-28] MEDS ORDERED: fentaNYL citrate 100 MCG/2 ML VIAL ONE (15:17)
--- NOTE | 2022-04-28 15:35 | Operative Report ---
Post Operative Report Pre & Post Diagnosis Operation Date: 04/28/22 13:45 Pre-Op Diagnosis: Unilateral Primary Osteoarthritis, Left Shoulder Post-Op Diagnosis: Unilateral Primary Osteoarthritis, rotator cuff and biceps tendinopathy without tears noted, left Shoulder I identified the patient and participated in the time-out.: Yes Procedure Operation Date: 04/28/22 13:45 Actual Procedures p Left Reverse Total Shoulder Arthroplasty(Left), biceps tenodesis.- Scott Barone MD Surgeon Scott Barone MD Professor Of Violin Aaron MIRANDA Estimated Blood Loss 50 Findings Consistent with Post-Op Diagnosis Specimens Humeral head Drains 2 Hemovac Anesthesia Type General Regional Complications none Disposition Disposition: Recovery Room Indications 81-year-old female with chronic left shoulder osteoarthritis with pain and weakness. She had similar condition on her right shoulder had a reverse total shoulder replacement and has excellent outcome. Radiographs are [id number] with mild B2 glenoid with posterior inferior glenoid wear pattern. Description of Procedure The patient was taken to the operating room and anesthetized under regional block and general anesthetic. The patient was positioned on the operating table in a 30 beach chair position with a towel roll under the medial border of the left scapula. The arm was draped free to be able to manipulate the shoulder as needed. The left upper extremity was prepped and draped in usual sterile fashion. Exam demonstrated 130 degrees forward flexion 45 degrees external rotation 80 degrees abduction with [id number] crepitation. An anterior deltopectoral approach was performed. A longitudinal incision was made in the deltopectoral interval. The skin was incised sharply. Subcutaneous flaps were elevated off the fascia. The cephalic vein was dissected out and retracted lateral with the deltoid. The clavipectoral fascia was divided at the lateral margin of the conjoined tendon and extended up to the CA ligament. The following findings were noted; there was chronic Biceps tenosynovitis developing biceps tendon. Approximately the biceps widened and intra-articularly was markedly widened at least 3-4 times normal width of the biceps. This was all consistent with biceps tendinopathy. Rotator cuff demonstrated intact rotator cuff with some tendinopathy of the subscapularis tendon. No full-thickness tear was identified.. The upper centimeter of the pectoralis was released for inferior exposure. A self-retaining retractor was placed. the biceps tendon was tenodesed to the pectoralis tendon with #2 FiberWire. The proximal biceps was resected. The subscapular muscle fibers were split longitudinally at the level of the circumflex vessels. The circumflex vessels were identified and tied off with silk ties and divided laterally. A Kitner elevator was used to free up the inferior fibers of the subscapularis off of the capsule. The axillary nerve was identified with a tug test and protected with a blunt Paul retractor between the nerve and the capsule. The subscapularis tendon was then taken down off of the lesser tuberosity subperiosteally, a Vicryl traction suture was placed and a subperiosteal dissection was performed along the neck of the humerus as the arm was gradually externally rotated exposing the humeral head. The humeral head findings demonstrated large inferior osteophytes several loose bodies which were removed and eburnated bone.. retractors were readjusted and the inferior osteophytes were all resected using an artist chisel. A Garcia elevator was used to assist in releasing the capsule of the neck of the humerus. The capsule was divided with Pathak scissors down to the glenoid released off the anterior glenoid and the rotator interval was released to meet the capsular release and a 360 release of the subscapularis was accomplished. A Fukuda retractor was placed into the joint retracting the humeral head posterior. Glenoid findings demonstrated eburnated bone with bone wear posterior inferior with some preservation in a crescent shape of the anterior superior articular cartilage. There was large anterior osteophyte and degeneration of the labrum.. The labrum and biceps tendon was resected. an anterior-inferior and posterior inferior capsular release were performed with electrocautery and a Garcia elevator on bone with the axillary nerve protected inferiorly by the retractor. Attention was then taken to the humeral preparation. The supraspinatus was released for exposure. The infraspinatus and teres minor maintained intact. The cutting guide was placed into the humeral head. It was positioned at 20 of retroversion. Oscillating saw was used resect the humeral head giving the cut above the level of the posterior rotator cuff insertion site. The humerus was then prepared for the stem. I used the ascend flex stem from [employer]. The sizing broaches were used followed by trial broaches up to a size 3B long which had the appropriate fit and fill. The appropriate sized cut protector was placed. The humerus was then retracted posterior to the glenoid. The glenoid was sized for a 25 mm baseplate. The guide for the baseplate was positioned in a 10 inferior tilt and the central drill hole was made. The reamer for the 25 baseplate was used. The central drill was widened for the peg. The bone was extremely hard so I had to toggle the central drill to widen the hole to allow better placement of the baseplate without causing fracture. The Tornier aequalis 25 mm hydroxyapatite-coated baseplate was impacted into position. There was a very tight press-fit. The base plate was transfixed with superior and inferior locking screws and anterior and posterior compression screws with stable fixation. The fan reamer was used for the 36 millimeter glenoid sphere. After irrigation the 36 mm standard glenoid sphere was impacted onto the baseplate and the security screw was tightened. Attention was taken back to the humerus. The cut protector was removed and the low offset +0 humeral tray trial was assembled to the trial stem rotated appropriately to get bony coverage and then screwed in position. A trial reduction was performed. A +6, 36 mm reversed trial insert demonstrated good stability and no shuck. The trials were removed. 3 drill holes are made into the harder bone in the bicipital groove area and 3 #5 FiberWire sutures were placed transosseously. The canal was irrigated with antibiotic solution with bacitracin. The final component was a ssembled. The final component was +6 36 mm reversed insert with the +0 low offset tray assembled to the 3B long ascend flex PTC stem. This was then impacted into the humerus with a tight press-fit. It was reduced to the glenoid sphere. Stability was verified. Subscapularis was repaired with the #5 FiberWire sutures using Rui-Armando suture technique. The supraspinatus was repaired to the lateral subscapularis rotator interval tissue with interrupted [id number] #2 FiberWire sutures. Lateral row soft tissue repair was performed with #2 FiberWire [id number] sutures. The pectoralis was repaired with #2 FiberWire [id number] sutures reinforcing the biceps tendon tenodesis. The arm was taken through a range of motion which demonstrated 150 degrees forward flexion 90 degrees abduction and with the arm at the side 60 degrees external rotation with the arm at 90 degrees 80 degrees external rotation without any tension on repair. The implant was stable through the range of motion tested. The wound was copiously irrigated. 2 Hemovac drains were placed. The deltopectoral interval was closed with [id number] #1 Vicryl sutures. The subcutaneous tissues were closed with 2-0 Vicryl sutures. The skin was closed with kory. Sterile dressings were applied and a shoulder immobilizer. Aaron MIRANDA my physician cardiovascular physician assistant acted as assistant operations manager throughout the procedure .He performed functions including patient positioning, arm positioning, prepping and draping, soft tissue retraction, instrument management, suture management and performed the subcutaneous and skin closure and will participate in the postoperative care of the patient. I attest to the content of the Intraoperative Record and any orders documented therein. Any exceptions are noted below.
--- NOTE | 2022-04-28 16:25 | XRay Report ---
XR shoulder LT min 2V routine CLINICAL HISTORY: Post shoulder surgery TECHNIQUE: 3 views of the left shoulder were obtained. Comparison: None available at the time of this dictation. FINDINGS: Patient is status post shoulder arthroplasty with expected postsurgical changes including soft tissue swelling, subcutaneous emphysema, and surgical staple placement. No periarticular lucency or hardwar e fracture is seen. IMPRESSION: Expected postoperative appearance status post placement of shoulder arthroplasty. ACT 112: Negative or not required by law. Electronically signed by: Irvin Velásquez M.D. 04/28/2022 4:24 PM
--- NOTE | 2022-04-28 16:28 | Anesthesiology Progress Note ---
Date of Service April 28, 2022 Anesthesia Post Procedure Vital Signs Vital Signs: Temp Pulse Pulse Resp BP BP Pulse Ox 04/28/22 16:20 63 17 152/75 H 98 04/28/22 16:10 36.3 C L 70 17 145/82 H 94 04/28/22 16:00 67 16 171/78 H 99 04/28/22 15:50 77 17 170/90 H 98 04/28/22 15:41 36.1 C L 86 17 138/98 97 04/28/22 12:00 36.7 C 73 18 164/91 H 96 O2 Del Method O2 Flow Rate 04/28/22 16:20 Nasal Cannula 2 04/28/22 16:10 Nasal Cannula 2 04/28/22 16:00 Oxymask 5 04/28/22 15:50 Oxymask 5 04/28/22 15:41 Oxymask 5 04/28/22 12:00 Room Air Transfer of Care Handoff Completed per policy Notes Mental Status: alert / awake / arousable and participated in evaluation Patient Amnestic to Procedure: Yes Nausea / Vomiting: adequately controlled Pain: adequately controlled Airway Patency, RR, SpO2: stable & adequate BP & HR: stable & adequate Hydration State: stable & adequate Anesthetic Complications: no major complications apparent and Pt Satisfied with anesthetic care
[2022-04-28] MEDS ORDERED: PHARMACY GLYCEMIC MGMT CONSULT PRN (17:31)
[2022-04-28] MEDS ORDERED: VANCOMYCIN CONSULT ACTIVE PRN (17:31)
[2022-04-28] MEDS ORDERED: traMADol HCL 50 MG TABLET PO PRN (17:31)
[2022-04-28] MEDS ORDERED: HYDROmorphone INJ 0.5 MG/0.5 ML SYR IV PRN (17:31)
[2022-04-28] MEDS ORDERED: bisacodyL 10 MG SUPP PR PRN (17:31)
[2022-04-28] MEDS ORDERED: MAGNESIUM HYDROXIDE SUSP 30 ML UDC PO PRN (17:31)
[2022-04-28] MEDS ORDERED: NALOXONE HCL 0.4 MG/1 ML VIAL/CARP IV PRN (17:31)
[2022-04-28] MEDS ORDERED: NITROGLYCERIN SL 0.4 MG/TAB TAB SL PRN (17:31)
[2022-04-28] MEDS: SODIUM CHLORIDE 0.9% 1000ML 1,000 ML IV SCH (18:31)
[2022-04-28] MEDS: ALLERGY Noted to ORDERED Medication SCH (18:32)
[2022-04-28] MEDS ORDERED: INSULIN ASPART PER UNIT SC ONE (18:45)
[2022-04-28] MEDS: GABAPENTIN 400 MG CAP PO SCH (20:24)
[2022-04-28] MEDS: ACETAMINOPHEN 500 MG TAB PO SCH (20:25)
[2022-04-28] MEDS: DOCUSATE SODIUM 100 MG CAP PO SCH (20:25)
[2022-04-28] MEDS: INSULIN ASPART PER UNIT SC SCH (20:54)
[2022-04-28] MEDS ORDERED: metFORMIN HCL 500 MG TAB PO SCH (21:00)
[2022-04-28] MEDS ORDERED: SENNA 8.6 MG TAB PO SCH (21:00)
[2022-04-29] MEDS ORDERED: VANCOMYCIN HCL 1,250 MG in SODIUM CHLORIDE 0.9% 250 ML IV SCH (01:45)
[2022-04-29] MEDS: ACETAMINOPHEN 500 MG TAB PO SCH (05:31)
[2022-04-29 07:03] LABS: Basophils # (auto) 0.04 K/uL (0-0.2); Basophils % (auto) 0.4 %; Eosinophils # (auto) 0.01 K/uL (0-0.50); Eosinophils % (auto) 0.1 %; Hematocrit (blood only) 34.1 % (34.1-44.9); Hemoglobin 11.1 g/dl (12.0-16.0); Immature Granulocytes # (auto) 0.03 K/uL (0.00-0.02); Immature Granulocytes % (auto) 0.3 %; Lymphocytes # (auto) 0.75 K/uL (1.2-3.4); Lymphocytes % (auto) 7.4 %; Mean Corpuscular Hemoglobin 31.4 pg (25.0-34.0); Mean Corpuscular Hgb Conc 32.6 g/dL (32.0-36.0); Mean Corpuscular Volume 96.3 fL (80.0-100.0); Mean Platelet Volume 9.4 fL (9.4-12.3); Monocytes # (auto) 0.67 K/uL (0.24-0.82); Monocytes % (auto) 6.6 %; Neutrophils # (auto) 8.58 K/uL (1.4-6.5); Neutrophils % (auto) 85.2 %; Platelet Count 223 K/uL (130-400); RDW Coefficient of Variation 11.8 % (11.5-14.5); RDW Standard Deviation 41.5 fL (36.4-46.3); Red Blood Count 3.54 M/uL (3.93-5.22); White Blood Count 10.08 K/ul (4.8-10.8)
--- NOTE | 2022-04-29 07:28 | Orthopedic Progress Note ---
Date of Service April 29, 2022 Assessment & Plan (1) Primary osteoarthritis, left shoulder: Plan: Postop day 1 left reverse total shoulder arthroplasty -PT/OT: No shoulder motion at this time. No formal therapy for 6 weeks postop. Home exercises as instructed. -DVT prophylaxis: SCDs -AM labs hemoglobin at 11.1 from 12 preop. Chemistries pending -Pain management as written -Discharge planning: Plan on discharge home today. Admission and Anticipated Discharge Date Admission Date: April 28, 2022 Subjective Patient is postop day 1 left reverse total shoulder. She is doing well this morning. Pain is well controlled. Hoping to go home. No other complaints. Review of Systems Review of Systems: All systems reviewed & are unremarkable except as noted in Subjective Physical Exam Physical Exam: Left shoulder: Dressing is clean, dry, intact. Sling in place. Fingers are mobile. She has some weakness with aluminum can collector strength and difficulty with wrist extension likely residual from the block. This is improving. Distally neurovascular status and sensation intact. Constitutional: WD/WN, vitals as above Results & Data ([facility]) Vital Signs (Past 12 Hours) Vital Signs Temp Pulse Resp BP Pulse Ox O2 Del Method 04/29/22 03:25 36.6 C 62 16 137/69 93 Room Air 04/28/22 22:55 36.8 C 58 L 16 120/70 92 Room Air 04/28/22 20:15 36.7 C 67 16 118/70 90 Room Air Laboratory Results Lab Results 04/28/22 04/28/22 04/28/22 Range/Units 11:38 11:44 11:52 WBC (4.8-10.8) K/ul RBC (3.93-5.22) M/uL Hgb (12.0-16.0) g/dl Hct (34.1-44.9) % MCV (80.0-100.0) fL MCH (25.0-34.0) pg MCHC (32.0-36.0) g/dL RDW Std Deviation (36.4-46.3) fL RDW Coeff of Cristopher (11.5-14.5) % Plt Count (130-400) K/uL MPV (9.4-12.3) fL Immature Gran % (Auto) % Neut % (Auto) % Lymph % (Auto) % Hudson % (Auto) % Eos % (Auto) % Baso % (Auto) % Neut # (Auto) (1.4-6.5) K/uL Lymph # (Auto) (1.2-3.4) K/uL Hudson # (Auto) (0.24-0.82) K/uL Eos # (Auto) (0-0.50) K/uL Baso # (Auto) (0-0.2) K/uL Immature Gran # (Auto) (0.00-0.02) K/uL POC Glucose 98 (70-99) mg/dl SARS-CoV-2, RNA, NAAT NEGATIVE (NEGATIVE) Blood Type A Negative Antibody Screen NEGATIVE 04/28/22 04/28/22 04/28/22 Range/Units 16:38 17:38 20:36 WBC (4.8-10.8) K/ul RBC (3.93-5.22) M/uL Hgb (12.0-16.0) g/dl Hct (34.1-44.9) % MCV (80.0-100.0) fL MCH (25.0-34.0) pg MCHC (32.0-36.0) g/dL RDW Std Deviation (36.4-46.3) fL RDW Coeff of Cristopher (11.5-14.5) % Plt Count (130-400) K/uL MPV (9.4-12.3) fL Immature Gran % (Auto) % Neut % (Auto) % Lymph % (Auto) % Hudson % (Auto) % Eos % (Auto) % Baso % (Auto) % Neut # (Auto) (1.4-6.5) K/uL Lymph # (Auto) (1.2-3.4) K/uL Hudson # (Auto) (0.24-0.82) K/uL Eos # (Auto) (0-0.50) K/uL Baso # (Auto) (0-0.2) K/uL Immature Gran # (Auto) (0.00-0.02) K/uL POC Glucose 139 H 141 H 151 H (70-99) mg/dl SARS-CoV-2, RNA, NAAT (NEGATIVE) Blood Type Antibody Screen 04/29/22 Range/Units 06:14 WBC 10.08 (4.8-10.8) K/ul RBC 3.54 L (3.93-5.22) M/uL Hgb 11.1 L (12.0-16.0) g/dl Hct 34.1 (34.1-44.9) % MCV 96.3 (80.0-100.0) fL MCH 31.4 (25.0-34.0) pg MCHC 32.6 (32.0-36.0) g/dL RDW Std Deviation 41.5 (36.4-46.3) fL RDW Coeff of Cristopher 11.8 (11.5-14.5) % Plt Count 223 (130-400) K/uL MPV 9.4 (9.4-12.3) fL Immature Gran % (Auto) 0.3 % Neut % (Auto) 85.2 % Lymph % (Auto) 7.4 % Hudson % (Auto) 6.6 % Eos % (Auto) 0.1 % Baso % (Auto) 0.4 % Neut # (Auto) 8.58 H (1.4-6.5) K/uL Lymph # (Auto) 0.75 L (1.2-3.4) K/uL Hudson # (Auto) 0.67 (0.24-0.82) K/uL Eos # (Auto) 0.01 (0-0.50) K/uL Baso # (Auto) 0.04 (0-0.2) K/uL Immature Gran # (Auto) 0.03 H (0.00-0.02) K/uL POC Glucose (70-99) mg/dl SARS-CoV-2, RNA, NAAT (NEGATIVE) Blood Type Antibody Screen
[2022-04-29 07:33] LABS: BUN Creatinine Ratio 22.6 (10-20); Calcium 8.4 mg/dl (8.5-10.1); Creatinine Clr Calc Pharmacy 36.5 ml/min; Est GFR (African American) 51.3 ml/min; Est GFR (Non-African American) 44.3 ml/min; Potassium 4.2 mmol/L (3.5-5.1)
--- NOTE | 2022-04-29 08:29 | Pharmacy Report ---
Glycemic Ortho Sign Off Note - Date of Service April 29, 2022 - Scope Glycemic Pharmacist consulted for glycemic control and to write orders per [facility] inpatient glycemic control protocol. - Objective Accuchecks BSG (last 24hrs):: 04/28/22 04/28/22 04/28/22 11:52 16:38 17:38 Glucose POC Glucose 98 139 H 141 H 04/28/22 04/29/22 04/29/22 20:36 06:14 08:21 Glucose 129 H POC Glucose 151 H 119 H - Assessment * Pt is maintained on oral antidiabeticagent[s]as anoutpatient with excellent control per recent A1c * Oral agents are not recommended for inpatient use d/t drug interactions, changing PO intake, and difficulty titrating for acute hyper/hypoglycemia. * Recommended regimen for inpatient use is SQ insulin * Low stress weight based insulin dosing appropriate since patient has minimal risk factors for insulin resistance (i.e. no steroids). * Appropriate to DC insulin and resume outpatient antidiabetic regimen at discharge * Goal is to maintain BSGs <200 mg/dl (ideally <150 mg/dl) to prevent post op complications - Plan For Inpatient Glycemic Control * Basal insulin * Not needed based on A1c, pre-op BSGs, and minimal risk factors for insulin resistance * Bolus insulin * Utilize low stress weight based NovoLog parameters per scale ACHS * Pharmacy has entered glycemic orders and is signing off of the glycemic consult. We will no longer be making adjustments to inpatient regimen. Please feel free to re-consult if needed. Thank you.
[2022-04-29] MEDS ORDERED: CYANOCOBALAMIN (B-12) 500 MCG TABLET PO SCH (09:00)
[2022-04-29] MEDS ORDERED: PRAVASTATIN SOD 20 MG TAB PO SCH (09:00)
[2022-04-29] MEDS ORDERED: PANTOprazole 40 MG TAB PO SCH (09:00)
[2022-04-29] MEDS ORDERED: VENLAFAXINE HCL XR 75 MG CAPXR PO SCH (09:00)
[2022-04-29] MEDS ORDERED: TRIAMTERENE/HCTZ 37.5/25MG TAB PO SCH (09:00)
[2022-04-29] MEDS ORDERED: CHOLECALCIFEROL 1,000 UNITS 25 MCG TAB PO SCH (09:00)
[2022-04-29] MEDS ORDERED: MULTIVITAMIN TAB PO SCH (09:00)
[2022-04-29] MEDS: DOCUSATE SODIUM 100 MG CAP PO SCH (09:01)
[2022-04-29] MEDS: GABAPENTIN 400 MG CAP PO SCH ×2 (09:01→12:42)
[2022-04-29] MEDS: INSULIN ASPART PER UNIT SC SCH ×2 (09:06→12:41)
[2022-04-29] MEDS: SODIUM CHLORIDE 0.9% 1000ML 1,000 ML IV SCH (11:32)
--- NOTE | 2022-04-29 14:31 | Communication Note ---
Date of Service: April 29, 2022 Patient discharge orders already written this morning for consultation placed post-operatively last evening for routine medical management. VSS, no fever, WBC wnl (steroids in operative period), doing well otherwise. Did hold AM triamterene/HCTZ empirically prior to reviewing rest of chart while labs pending from morning and labs with stable Cr and can resume tomorrow. BP controlled. Per discussion with orthopedics PA, no need for consultation at this time as plans for discharge already in place and patient doing well.
--- NOTE | 2022-05-01 10:25 | Discharge Summary ---
Date of Service May 01, 2022 Admission HPI Per Admitting Provider 81 year old female with PMHx significant for HTN, high cholesterol, DM2, GERD, CKD, and TIA who presents with ongoing left shoulder pain. She has endstage osteoarthritis left shoulder. She has failed conservative measures, including multiple injections. Pain interfering with her daily activities. Patient denies headaches, sweats, fevers, chills, double vision, blurred vision, cough, sore throat, dysphagia, chest pain, sob, wheezing, n/v/d/c, numbness, tingling, fatigue, urinary symptoms, mood disorders. ROS positive for left shoulder pain and stiffness Admission Exam Per Admitting Provider Physical Exam Constitutional: well developed and well nourished; no acute distress Eyes: PERRL, conjunctivae normal, anicteric sclerae ENMT: external ear and nose normal, oropharynx normal Neck: trachea midline, no thyromegaly Respiratory: normal respiratory effort, lungs clear to auscultation Cardiovascular: RRR, no murmur, no edema Musculoskeletal: Left shoulder: Crepitation noted with ROM, active painful ROM. Diffuse tenderness. FF to 90 degrees, ER to 45 degrees actively. Weakness and pain with strength testing. Skin: no rashes, warm and dry Neurologic: patellar DTR's 2+ bilat, sensation intact Psychiatric: A+Ox3, euthymic affect Principal Diagnosis Left shoulder osteoarthritis Discharge Data Allergies Allergy/AdvReac Type Severity Reaction Status Date / Time ampicillin Allergy Intermediate RASH Verified 04/28/22 11:47 celecoxib Allergy Intermediate hives Verified 04/28/22 11:47 oxycodone Allergy Intermediate n/v, hives Verified 04/28/22 11:47 nitrofurantoin AdvReac Severe extreme Verified 04/28/22 11:47 fatigue and weakness atorvastatin AdvReac Intermediate Muscle Pain Verified 04/28/22 11:47 heparin AdvReac Intermediate Rash Verified 04/28/22 11:47 lisinopril AdvReac Intermediate Rash Verified 04/28/22 11:47 olmesartan [From Benicar] AdvReac Intermediate ELEVATED CK Verified 04/28/22 11:47 simvastatin [From Zocor] AdvReac Intermediate Muscle Pain Verified 04/28/22 11:47 Sulfa (Sulfonamide AdvReac Intermediate Unknown Verified 04/28/22 11:47 Antibiotics) hydrocodone AdvReac Mild hallucinati Verified 04/28/22 11:47 ons Consultations 04/26/22 11:30 Consult Hospitalist Routine Procedures Performed Operation Date: 04/28/22 13:45 Actual Procedures p Left Reverse Total Shoulder Arthroplasty(Left) - Scott Barone MD Ordered Studies 04/28/22 05:00 US - OR guided needle placemen Routine Hospital Course (1) Primary osteoarthritis, left shoulder: Patient:Se VIEYRA Admit Date:04/28/22 MR#:[id number] Att Phy:Scott Barone M.D. Acct ID:[id number] Jess Phy:Airam Sanchez MD Date:1940 Fam Phy: Age:81 Location:3E Sex:F Room/Bed:E307-1 cc: ~ *NOTICE TO RECEIVING [employer]/AGENCY This information is strictly Confidential and protected under [place] law. [place] law prohibits you from making any further disclosure of this information unless further disclosure is expressly permitted by the written consent of the person to whom it pertains or is authorized by law. A general authorization for the release of medical or other information is not sufficient for this purpose. Hospital accepts no responsibility if the information is made available to any other person, INCLUDING THE PATIENT. Date of Service April 29, 2022 Assessment & Plan (1) Primary osteoarthritis, left shoulder: Plan: Postop day 1 left reverse total shoulder arthroplasty -PT/OT: No shoulder motion at this time. No formal therapy for 6 weeks postop. Home exercises as instructed. -DVT prophylaxis: SCDs -AM labs hemoglobin at 11.1 from 12 preop. Chemistries pending -Pain management as written -Discharge planning: Plan on discharge home today. Admission and Anticipated Discharge Date Admission Date: April 28, 2022 Subjective Patient is postop day 1 left reverse total shoulder. She is doing well this morning. Pain is well controlled. Hoping to go home. No other complaints. Review of Systems Review of Systems: All systems reviewed & are unremarkable except as noted in Subjective Physical Exam Physical Exam: Left shoulder: Dressing is clean, dry, intact. Sling in place. Fingers are mobile. She has some weakness with color strainer strength and difficulty with wrist extension likely residual from the block. This is improving. Distally neurovascular status and sensation intact. Constitutional: WD/WN, vitals as above Results & Data ([facility]) Vital Signs (Past 12 Hours) Vital Signs Temp Pulse Resp BP Pulse Ox O2 Del Method 04/29/22 03:25 36.6 C 62 16 137/69 93 Room Air 04/28/22 22:55 36.8 C 58 L 16 120/70 92 Room Air 04/28/22 20:15 36.7 C 67 16 118/70 90 Room Air Laboratory Results Lab Results 04/28/22 04/28/22B 04/28/22 Range/Units 11:38 11:44 11:52 WBC (4.8-10.8) K/ul RBC (3.93-5.22) M/uL Hgb (12.0-16.0) g/dl Hct (34.1-44.9) % MCV (80.0-100.0) fL MCH (25.0-34.0) pg MCHC (32.0-36.0) g/dL RDW Std Deviation (36.4-46.3) fL RDW Coeff of Cristopher (11.5-14.5) % Plt Count (130-400) K/uL MPV (9.4-12.3) fL Immature Gran % (Auto) % Neut % (Auto) % Lymph % (Auto) % Villalba % (Auto) % Eos % (Auto) % Baso % (Auto) % Neut # (Auto)B (1.4-6.5) K/uL Lymph # (Auto) (1.2-3.4) K/uL Villalba # (Auto) (0.24-0.82) K/uL Eos # (Auto) (0-0.50) K/uL Baso # (Auto) (0-0.2) K/uL Immature Gran # (Auto) (0.00-0.02) K/uL POC Glucose 98 (70-99) mg/dl SARS-CoV-2, RNA, NAAT NEGATIVE (NEGATIVE) Blood Type A Negative Antibody Screen NEGATIVE B 04/28/22 04/28/22 04/28/22 Range/Units 16:38 17:38 20:36 WBC (4.8-10.8) K/ul RBC (3.93-5.22) M/uL Hgb (12.0-16.0) g/dl Hct (34.1-44.9) % MCV (80.0-100.0) fL MCH (25.0-34.0) pg MCHC (32.0-36.0) g/dL RDW Std Deviation (36.4-46.3) fL RDW Coeff of Cristopher (11.5-14.5) % Plt Count (130-400) K/uL MPV (9.4-12.3) fL Immature Gran % (Auto) % Neut % (Auto) % Lymph % (Auto) % Villalba % (Auto) % Eos % (Auto) % Baso % (Auto) % Neut # (Auto) (1.4-6.5) K/uL Lymph # (Auto) (1.2-3.4) K/uL Villalba # (Auto) (0.24-0.82) K/uL Eos # (Auto) (0-0.50) K/uL Baso # (Auto) (0-0.2) K/uL Immature Gran # (Auto) (0.00-0.02) K/uL POC Glucose 139 H 141 H 151 H (70-99) mg/dl SARS-CoV-2, RNA, NAAT (NEGATIVE) Blood Type Antibody Screen 04/29/22 Range/Units 06:14 WBC 10.08 (4.8-10.8) K/ul RBC 3.54 L (3.93-5.22) M/uL Hgb 11.1 L (12.0-16.0) g/dl Hct 34.1 (34.1-44.9) % MCV 96.3 (80.0-100.0) fL MCH 31.4 (25.0-34.0) pg MCHC 32.6 (32.0-36.0) g/dL RDW Std Deviation 41.5 (36.4-46.3) fL RDW Coeff of Cristopher 11.8 (11.5-14.5) % Plt Count 223 (130-400) K/uL MPV 9.4 (9.4-12.3) fL Immature Gran % (Auto) 0.3 % Neut % (Auto) 85.2 % Lymph % (Auto) 7.4 % Villalba % (Auto) 6.6 % Eos % (Auto) 0.1 % Baso % (Auto) 0.4 % Neut # (Auto) 8.58 H (1.4-6.5) K/uL Lymph # (Auto) 0.75 L (1.2-3.4) K/uL Villalba # (Auto) 0.67 (0.24-0.82) K/uL Eos # (Auto) 0.01 (0-0.50) K/uL Baso # (Auto) 0.04 (0-0.2) K/uL Immature Gran # (Auto) 0.03 H (0.00-0.02) K/uL POC Glucose (70-99) mg/dl SARS-CoV-2, RNA, NAAT (NEGATIVE) Blood Type Antibody Screen Signed By: <Electronically signed by Carlo Montes De Oca PA-C> 04/29/22727 <Electronically signed by Wang Ta DO> 04/29/22 0731 Total Time Total Time Spent Total Time Spent (In Minutes): 5 Discharge Plan Discharge Items Patient Disposition: Home - Self-Care Reason For Visit: Unilateral Primary Osteoarthritis, Left Shoulder Discharge Diagnosis: Left shoulder osteoarthritis Activity: Per Instructions section Non-emergency contact: Surgeon Call non-emergency contact if: you have any medication questions, your pain is not controlled, your pain is concerning for you, you have a fever, your temperature is above 101, your wound has increased redness and your wound has increased drainage Follow-up/Referrals: Airam Sanchez MD [Primary Care Provider] - Diet: Regular Addtl Attending Provider Instructions: ACTIVITY RECOMMENDATIONS: SELF CARE INSTRUCTIONS AFTER TOTAL SHOULDER ARTHROPLASTY REVERSE A. You may do daily exercises as taught in physical therapy while in hospital. No lifting with the operative arm. B. You are to wear your sling/immobilizer at all times EXCEPT when performing your daily exercises and for hygiene purposes. C. You may perform dry, daily dressing changes. Please keep your incision covered. You may shower 48 hours after surgery. Do not apply soap or any ointment/lotions directly over incision. Do not soak incision in bath tub/swimming pool. D. You may use ice as needed to operative shoulder. SPECIAL CARE INSTRUCTIONS: VERY IMPORTANT TO READ AND REVIEW A. There are a few signs you need to watch for after you are home. Call [facility] at [phone] if you experience any of the followin. Increased severe shoulder pain. Some pain is expected especially when you exercise. 2. Increased swelling in you shoulder or arm; pain or swelling in either upper extremity. 3. Any fluid drainage from the incision. 4. Shortness of breath or chest pain. B. Please call [facility] at [phone] if you have any questions or concerns about your operation or recovery. C. Call your physician if: 1. Temperature is greater than 101 degrees (F). 2. Pain is not relieved by prescribed pain medications. 3. Increase drainage or redness from incision. 4. Unanswered questions or concerns. FOLLOW UP VISIT: Please call [facility] at [phone] to schedule a follow up appointment with Dr. Barone or his PA in 12-14 days from your surgery date. Stand-Alone Forms: My [employer], Smoking Cessation Medications and DC Order Prescriptions: New tramadol 50 mg Tablet 50 - 100 mg PO .Q4h-6h MDD 6 PRN (Reason: pain) Qty: 30 0RF Rx Instructions: Ongoing therapy Dr. Barone supervising acetaminophen [Tylenol Extra Strength] 500 mg Tablet 1,000 mg PO Q8 Qty: 60 0RF Continued hydrocortisone 2.5 % cream 1 applic topical BID PRN (Reason: skin irritation) Qty: 60 0RF metformin 500 mg tablet See Rx Instructions PO BID Qty: 270 3RF Rx Instructions: take 1 po am and 2 po pm venlafaxine 75 mg capsule,extended release 24hr 75 mg PO QAM Qty: 90 3RF omeprazole 40 mg capsule,delayed release(DR/EC) 40 mg PO QAM Qty: 90 1RF triamterene-hydrochlorothiazid [Maxzide-25mg] 37.5-25 mg tablet 1 tab PO QAM 90 Days Qty: 90 3RF biotin 5 mg tablet 5 mg PO QPM Qty: 30 cyanocobalamin (vitamin B-12) 1,000 mcg tablet 1,000 mcg PO QAM Qty: 100 zoledronic [id number] [Reclast] 5 mg/100 mL piggyback See Rx Instructions IV .COMPLEX Label Comments: IV INFUSE 5MG IV OVER 15MINS ONCE YEARLY; Rx Instructions: IV INFUSE 5MG IV OVER 15MINS ONCE YEARLY; doxycycline hyclate 100 mg capsule 100 mg PO DAILY PRN (Reason: rosacea) nitroglycerin [Nitrostat] 0.4 mg tablet, sublingual 0.4 mg SL Q5M PRN (Reason: chest pain) Qty: 25 0RF Rx Instructions: until response; do not exceed 3 doses per episode pravastatin 20 mg tablet 20 mg PO QAM Qty: 90 3RF cephalexin 500 mg tablet 500 mg PO QID 10 Days Qty: 40 0RF gabapentin 400 mg capsule 400 mg PO QID cholecalciferol (vitamin D3) 25 mcg (1,000 unit) capsule 25 mcg PO QAM Discontinued acetaminophen [Tylenol Extra Strength] 500 mg Tablet 1,000 mg PO Q8 Qty: 60 0RF Discharge Orders: Discharge Order (Routine); Ordered 04/29/22 Ordered By: Carlo Montes De Oca Admission Data Admit Date/Time: 04/28/22 15:51 Attending Provider: Scott Barone Admit Provider: Scott Barone Primary Care Provider: Airam Sanchez Other Providers: Fernando Jimenez Other Interventions: Discharge Summary Assessment (RN) Last Done: 04/29/22 13:17
== END 2022-04-29 13:45 | disposition home or self-care (01) | DRG 483 ==
LOC: ASU 11:17 → 3E 15:51